=== PATIENT | male | born 1950 | race Caucasian/White ===

== ENCOUNTER 2024-08-25 21:54 | Inpatient (IN) | payer MEDICARE, OTHER ==
--- NOTE | 2024-08-25 22:09 | ED ---
Weakness HPI - General Stated complaint: Bradycardia Time Seen by Provider: 08/25/24 22:02 Source: RN notes reviewed, old records reviewed Mode of arrival: EMS Limitations: altered mental status, physical limitation - History of Present Illness Initial comments: This is a 74-year-old male to the ER for evaluation, patient had EMS called because he was not acting appropriately patient was found by EMS to be unresponsive which may be his baseline but is usually eating per staff at extended-care facility today patient did not eat any food and EMS found patient's heart rate to be in the 20s EMS transfer patient to the ER after giving atropine without help and heart rate they initially had normal blood pressure MD Complaint: generalized weakness, lack of energy -: unknown Location: generalized Severity: severe Severity scale (1-10): 10 Consistency: constant Improves with: none Worsens with: none Context: recent illness Associated Symptoms: confusion - Related Data Home Medications Medication Instructions Recorded Confirmed Acetaminophen [Tylenol] 325 mg PO Q4H PRN 03/19/14 08/26/24 Aspirin 81 mg PO DAILY 03/19/14 08/26/24 Chlorhexidine Gluconate [Peridex] 15 ml PO BID 03/19/14 08/26/24 Phenytoin Sodium Extended 100 mg PO TID 03/19/14 08/26/24 [Dilantin] Propranolol HCl [Propranolol HCl 60 mg PO DAILY 03/19/14 08/26/24 ER] Tamsulosin [Flomax] 0.4 mg PO DAILY 03/19/14 08/26/24 Divalproex ER [Depakote ER] 1,000 mg PO BID 08/26/24 08/26/24 Furosemide [Lasix] 20 mg PO DAILY 08/26/24 08/26/24 Levothyroxine Sodium [Synthroid] 25 mcg PO DAILY 08/26/24 08/26/24 Menthol-Zinc Oxide Oint 1 applic TOPICAL DAILY PRN 08/26/24 08/26/24 [Calmoseptine Ointment] Multivitamins, Thera [Multivitamin 1 tab PO DAILY 08/26/24 08/26/24 (formulary)] Potassium Chloride ER [K-Dur 10] 10 meq PO DAILY 08/26/24 08/26/24 guaiFENesin SYRUP 100MG/5ML 200 mg PO Q4H 08/26/24 08/26/24 [Robitussin] Allergies Allergy/AdvReac Type Severity Reaction Status Date / Time No Known Allergies Allergy Verified 08/26/24 12:16 Review of Systems ROS Statement: Those systems with pertinent positive or pertinent negative responses have been documented in the HPI. ROS Other: All systems not noted in ROS Statement are negative. 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 Absent: scleral icterus, conjunctival injection, periorbital swelling ENT exam: Present: normal exam, mucous membranes moist Neck exam: Present: normal inspection. Absent: tenderness, meningismus, lymphadenopathy Respiratory exam: Present: respiratory distress, decreased breath sounds, prolonged expiratory. Absent: wheezes, rales, rhonchi, stridor Cardiovascular Exam: Present: regular rate, bradycardia, normal heart sounds. Absent: systolic murmur, diastolic murmur, rubs, gallop, clicks GI/Abdominal exam: Present: soft, normal bowel sounds. Absent: distended, tenderness, guarding, rebound, rigid Extremities exam: Present: normal inspection, full ROM, normal capillary refill. Absent: tenderness, pedal edema, joint swelling, calf tenderness Back exam: Present: normal inspection Psychiatric exam: Present: normal affect, normal mood Skin exam: Present: warm, dry, intact, normal color. Absent: rash Course Vital Signs 08/25/24 08/25/24 08/26/24 22:14 23:39 00:00 Temperature 87.6 F L 85.8 F L 29.9 F L Pulse Rate 29 L 40 L 43 L Respiratory 15 20 20 Rate Blood Pressure 44/33 87/35 76/25 O2 Sat by Pulse 97 90 L 92 L Oximetry 08/26/24 00:19 Temperature 86.0 F L Pulse Rate 61 Respiratory 15 Rate Blood Pressure 80/25 O2 Sat by Pulse 92 L Oximetry - Reevaluation(s) Reevaluation #1: 08/25/24 22:08 medical records reviewed Reevaluation #2: 08/25/24 22:43 Blood pressure remains significant shocky here in the ER Patient altered mental status here in the ER Patient given central line dopamine and Levophed Patient remains bradycardic here in the ER Patient given dopamine and Levophed no response to atropine Patient's blood pressure remains low given steroid and thyroid medications known history of hypothyroid Reevaluation #3: 08/25/24 22:45 Patient informed of results questions answered Reevaluation #4: Was pt. sent in by a medical professional or institution (, [facility], [facility]TH WORK[facility], urgent care, hospital, or [facility]...) When possible be specific @ -no Did you speak to anyone other than the patient for history (EMS, parent, family, police, friend...)? What history was obtained from this source @ -no Did you review nursing and triage notes (agree or disagree)? Why? @ -agree Are old charts reviewed (outside hosp., previous admission, EMS record, old EKG, old radiological studies, urgent care reports/EKG's, [facility] records)? Report findings @ -yes Differential Diagnosis (chest pain, altered mental status, abdominal pain women, abdominal pain men, vaginal bleeding, weakness, fever, dyspnea, syncope, headache, dizziness, GI bleed, back pain, seizure, CVA, palpatations, mental health, musculoskeletal)? @ -prior EKG interpreted by me (3pts min.). @ -yes X-rays interpreted by me (1pt min.). @ -yes suspected acute infiltrate CT interpreted by me (1pt min.). @ - yes negative for acute disease U/S interpreted by me (1pt. min.). @ -no What testing was considered but not performed or refused? (CT, X-rays, U/S, labs)? Why? @ -none What meds were considered but not given or refused? Why? @ -none Did you discuss the management of the patient with other professionals (professionals i.e. , [facility], [facility] WORK[facility], lab, RT, psych nurse, social services technician, sugar plantation manager, te acher, risk officer, home health care case manager)? Give summary @ -no Was smoking cessation discussed for >3mins.? @ -no Was critical care preformed (if so, how long)? @ -yes65 Were there social determinants of health that impacted care today? How? (Homelessness, low income, unemployed, alcoholism, drug addiction, transportation, low edu. Level, literacy, decrease access to med. care, long term, rehab)? @ -none Was there de-escalation of care discussed even if they declined (Discuss DNR or withdrawal of care, Hospice)? DNR status @ -no What co-morbidities impacted this encounter? (DM, HTN, Smoking, COPD, CAD, Cancer, CVA, ARF, Chemo, Hep., AIDS, mental health diagnosis, sleep apnea, morbid obesity)? @ -none Was patient admitted / discharged? Hospital course, mention meds given and route, prescriptions, significant lab abnormalities, going to OR and other pertinent info. @ - 74 male to the ER for evaluation of altered mental status. Per the [facility] care facility patient was not responding or eating up to his normal standard today. Patient is a decreased mental status with mild retardation at baseline but usually does eat food especially in place in front of him, he did not do this throughout the day today. When EMS arrived they found patient to be with a significant low heart rate and he continues to be bradycardic here in the ER with low blood pressure Suspect sepsis, patient placed on IV antibiotics Central line multiple blood pressure medications Admitted Undiagnosed new problem with uncertain prognosis? @ -no Drug Therapy requiring intensive monitoring for toxicity (Heparin, Nitro, Insulin, Cardizem)? @ -no Were any procedures done? @ -no Diagnosis/symptom? @ -hypovolemic shock Multifactorial, suspect sepsis, hypovolemia Acute, or Chronic, or Acute on Chronic? @ -Acute Uncomplicated (without systemic symptoms) or Complicated (systemic symptoms)? @ -Complicated Side effects of treatment? @ -no Exacerbation, Progression, or Severe Exacerbation? @ -exacerbation Poses a threat to life or bodily function? How? (Chest pain, USA, MD, pneumonia, PE, COPD, DKA, ARF, appy, cholecystitis, CVA, Diverticulitis, Homicidal, Suicidal, threat to staff... and all critical care pts) @ -yes Extremes of age with significant illness 09/02/24 00:36 Reevaluation #5: Differential Altered Mental Status: Hypoglycemia, DKA, hypercapnia, ETOH, overdose, CO poisoning, trauma, myxedema coma, HTN encephalopathy, infection, encephalitis, psychosis, intercranial hemorrhage, hepatic encephalopathy, meningitis, CVA, this is not meant to be an all-inclusive list - Consultations Consultation #1: spoke w sound ok for admission Consultation #2: spoke w ICU ok for admission EKG Findings - EKG Comments: EKG Findings:: EKG is sinus bradycardia 27 OR 175 QRS 109 QTc 439 Procedures - Central Line Placement Right IJ Consent Obtained: verbal consent Patient Placed on Monitor/Pulse Ox: Yes MD Prep: mask Central Line Prep: Chlorhexidine scrub Local Anesthesia Used: Lidocaine 1% Ultrasound Used for Placement: Yes Bloods Obtained for Lab: Yes Central Line Position: good blood return, all ports aspirated, flushed, capped, sutured in place with 2-0 silk, sutured in place with 3-0 nylon Dressing Applied: Tegaderm Patient Tolerated Procedure: well - Sepsis Sepsis Focused Exam #1 Time Sepsis Criteria Met: 22:30 Sepsis Focused Exam Date: 08/26/24 Sepsis Focused Exam Time: 02:00 Sepsis Focused Exam Complete: Yes Vital Signs & RN Notes Reviewed: Yes Capillary Refill: < 2 Seconds: Fingers, Toes Peripheral Pulses: Normal: Radial (R), Radial (L), Posterior Tibialis (R), Posterior Tibialis (L), Dorsalis Pedis (R), Dorsalis Pedis (L) Skin Color: Cyanotic Respiratory Exam: wheezes, rhonchi Cardiovascular Exam: bradycardia Medical Decision Making - Medical Decision Making 74 male to the ER for evaluation of altered mental status. Per the [facility]care [facility] patient was not responding or eating up to his normal standard today. Patient is a decreased mental status with mild retardation at baseline but usually does eat food especially in place in front of him, he did not do this throughout the day today. When EMS arrived they found patient to be with a significant low heart rate and he continues to be bradycardic here in the ER with low blood pressure Suspect sepsis, patient placed on IV antibiotics Central line multiple blood pressure medications - Lab Data Result diagrams: 08/30/24 05:05 08/30/24 05:05 Lab Results 08/25/24 08/25/24 08/25/24 Range/Units 22:12 22:12 22:12 WBC 15.0 H (3.8-10.6) k/uL RBC 3.77 L (4.30-5.90) m/uL Hgb 11.2 L (13.0-17.5) gm/dL Hct 37.6 L (39.0-53.0) % MCV 99.6 (80.0-100.0) fL MCH 29.6 (25.0-35.0) pg MCHC 29.8 L (31.0-37.0) g/dL RDW 14.2 (11.5-15.5) % Plt Count 244 (150-450) k/uL MPV 10.9 Neutrophils % 79 % Lymphocytes % 11 % Monocytes % 7 % Eosinophils % 1 % Basophils % 0 % Neutrophils # 11.9 H (1.3-7.7) k/uL Lymphocytes # 1.7 (1.0-4.8) k/uL Monocytes # 1.0 (0-1.0) k/uL Eosinophils # 0.1 (0-0.7) k/uL Basophils # 0.0 (0-0.2) k/uL Hypochromasia Marked Macrocytosis Slight PT 12.7 H (10.0-12.5) sec INR 1.2 H (<1.2) APTT 27.3 (22.0-30.0) sec Sodium 151 H (137-145) mmol/L Potassium 3.9 (3.5-5.1) mmol/L Chloride 116 H (98-107) mmol/L Carbon Dioxide 29 (22-30) mmol/L Anion Gap 6 mmol/L BUN 48 H (9-20) mg/dL Creatinine 0.61 L (0.66-1.25) mg/dL Est GFR (CKD-EPI)AfAm >90 (>60 ml/min/1.73 sqM) Est GFR (CKD-EPI)NonAf >90 (>60 ml/min/1.73 sqM) Glucose 134 H (74-99) mg/dL Plasma Lactic Acid Eitan (0.7-2.0) mmol/L Calcium 8.4 (8.4-10.2) mg/dL Phosphorus 3.7 (2.5-4.5) mg/dL Magnesium 2.6 H (1.6-2.3) mg/dL Total Bilirubin 0.5 (0.2-1.3) mg/dL AST 57 (17-59) U/L ALT 30 (4-49) U/L Alkaline Phosphatase 191 H (38-126) U/L Ammonia (<30) umol/L Troponin I (0.000-0.034) ng/mL NT-Pro-B Natriuret Pep 305 pg/mL Total Protein 6.3 (6.3-8.2) g/dL Albumin 2.8 L (3.5-5.0) g/dL TSH 7.350 H (0.465-4.680) mIU/L Free T4 0.97 (0.78-2.19) ng/dL Salicylates <1.0 mg/dL Acetaminophen <10.0 ug/mL 08/25/24 08/25/24 Range/Units 22:12 22:12 WBC (3.8-10.6) k/uL RBC (4.30-5.90) m/uL Hgb (13.0-17.5) gm/dL Hct (39.0-53.0) % MCV (80.0-100.0) fL MCH (25.0-35.0) pg MCHC (31.0-37.0) g/dL RDW (11.5-15.5) % Plt Count (150-450) k/uL MPV Neutrophils % % Lymphocytes % % Monocytes % % Eosinophils % % Basophils % % Neutrophils # (1.3-7.7) k/uL Lymphocytes # (1.0-4.8) k/uL Monocytes # (0-1.0) k/uL Eosinophils # (0-0.7) k/uL Basophils # (0-0.2) k/uL Hypochromasia Macrocytosis PT (10.0-12.5) sec INR (<1.2) APTT (22.0-30.0) sec Sodium (137-145) mmol/L Potassium (3.5-5.1) mmol/L Chloride (98-107) mmol/L Carbon Dioxide (22-30) mmol/L Anion Gap mmol/L BUN (9-20) mg/dL Creatinine (0.66-1.25) mg/dL Est GFR (CKD-EPI)AfAm (>60 ml/min/1.73 sqM) Est GFR (CKD-EPI)NonAf (>60 ml/min/1.73 sqM) Glucose (74-99) mg/dL Plasma Lactic Acid Eitan 1.8 (0.7-2.0) mmol/L Calcium (8.4-10.2) mg/dL Phosphorus (2.5-4.5) mg/dL Magnesium (1.6-2.3) mg/dL Total Bilirubin (0.2-1.3) mg/dL AST (17-59) U/L ALT (4-49) U/L Alkaline Phosphatase (38-126) U/L Ammonia <9 (<30) umol/L Troponin I <0.012 (0.000-0.034) ng/mL NT-Pro-B Natriuret Pep pg/mL Total Protein (6.3-8.2) g/dL Albumin (3.5-5.0) g/dL TSH (0.465-4.680) mIU/L Free T4 (0.78-2.19) ng/dL Salicylates mg/dL Acetaminophen ug/mL - EKG Data -: EKG Interpreted by Me - Radiology Data Radiology results: report reviewed (CXR is possible infiltrate v atelectasis, CT brain negative for acute diseases), image reviewed Critical Care Time Critical Care Time: Yes Total Critical Care Time: 65 Disposition Clinical Impression: Bradycardia, Hypothermia, Altered mental status, Hypotension, Sepsis Disposition: ADMITTED IP TO THIS HOSP Is patient prescribed a controlled substance at d/c from ED?: No
[2024-08-25 22:30] LABS: Basophils % (A) 0 %; Eosinophils # (A) 0.1 k/uL (0-0.7); Eosinophils % (A) 1 %; HCT 37.6 % (39.0-53.0); HGB 11.2 gm/dL (13.0-17.5); Hypochromasia Marked; Lymphocytes # (A) 1.7 k/uL (1.0-4.8); Lymphocytes % (A) 11 %; MCH 29.6 pg (25.0-35.0); MCHC 29.8 g/dL (31.0-37.0); MCV 99.6 fL (80.0-100.0); Macrocytosis Slight; Mean Platelet Volume 10.9; Monocytes % (A) 7 %; Neutrophils # (A) 11.9 k/uL (1.3-7.7); Neutrophils % (A) 79 %; Platelet Count 244 k/uL (150-450); RBC 3.77 m/uL (4.30-5.90); RDW 14.2 % (11.5-15.5)
[2024-08-25] MEDS: HYDROCORTISONE SUCCINATE 100 MG/2 ML VIAL IV STA (22:34)
[2024-08-25] MEDS: MIDAZOLAM 2 MG/2 ML VIAL IV ONE (22:34)
[2024-08-25] MEDS: SODIUM CHLORIDE 0.9% 1,000 ML IV STA ×3 (22:34→23:20)
[2024-08-25] MEDS ORDERED: NALOXONE 0.4 MG/ML 1 ML VIAL IV PRN (22:37)
[2024-08-25 22:41] LABS: INR 1.2 (<1.2); Partial Thromboplastin Time 27.3 sec (22.0-30.0); Prothrombin Time 12.7 sec (10.0-12.5)
[2024-08-25] MEDS ORDERED: DOPamine DRIP 250 ML IV SCH (22:45)
[2024-08-25 22:52] LABS: Lactic Acid, Venous 1.8 mmol/L (0.7-2.0)
[2024-08-25 22:53] LABS: ALT 30 U/L (4-49); AST 57 U/L (17-59); Acetaminophen <10.0 ug/mL; African American GFR (CKD) >90 (>60 ml/min/1.73 sqM); Albumin 2.8 g/dL (3.5-5.0); Alkaline Phosphatase 191 U/L (38-126); Anion Gap 6 mmol/L; Blood Urea Nitrogen 48 mg/dL (9-20); Calcium 8.4 mg/dL (8.4-10.2); Carbon Dioxide 29 mmol/L (22-30); Chloride 116 mmol/L (98-107); Glucose 134 mg/dL (74-99); Magnesium 2.6 mg/dL (1.6-2.3); Non-African American GFR(CKD) >90 (>60 ml/min/1.73 sqM); Phosphorus 3.7 mg/dL (2.5-4.5); Potassium 3.9 mmol/L (3.5-5.1); Salicylate <1.0 mg/dL; Sodium 151 mmol/L (137-145); Total Bilirubin 0.5 mg/dL (0.2-1.3); Total Protein 6.3 g/dL (6.3-8.2)
[2024-08-25 23:02] LABS: NT-Pro-B-Type Natriuretic Pept 305 pg/mL
[2024-08-25] MEDS: PIPERACILLIN-TAZOBACTAM 3.375 GM in SODIUM CHLORIDE 0.9% 100 ML IVPB ONE (23:05)
[2024-08-25] MEDS: HYDROCORTISONE SUCCINATE 100 MG/2 ML VIAL IV SCH (23:06)
[2024-08-25] MEDS: DOPamine DRIP 800 MG in DEXTROSE/WATER 1 250ML.BAG IV ONE (23:13)
[2024-08-25] MEDS: LACTATED RINGERS 1,000 ML BAG IV STA (23:19)
[2024-08-25] MEDS: LEVOTHYROXINE IVP 100 MCG/5 ML VIAL IV ONE (23:20)
[2024-08-25] MEDS: NOREPINEPHRINE 32 MG in SODIUM CHLORIDE 0.9% 218 ML IV SCH (23:25)
[2024-08-25] MEDS: LEVOFLOXACIN 750MG-D5W PMX 750 MG in DEXTROSE/WATER 1 150ML.BAG IVPB STA (23:31)
[2024-08-25 23:33] LABS: VBG PH 7.37 (7.31-7.41)
[2024-08-25 23:34] LABS: Influenza A Not Detected (Not Detectd); Influenza B Not Detected (Not Detectd); RSV Not Detected (Not Detectd)
[2024-08-25 23:58] LABS: Appearance,Urine Clear (Clear); Bacteria,Urine Many /hpf; Bilirubin,Urine Negative (Negative); Blood,Urine Negative (Negative); Color,Urine Yellow; Glucose,Urine (UA) Negative (Negative); Hyaline Casts,Urine 13 /lpf (0-2); Ketones,Urine Negative (Negative); Leukocyte Esterase,Urine Large (Negative); Mucus,Urine Rare /hpf; Nitrite,Urine Negative (Negative); Protein,Urine Negative (Negative); RBC,Urine 2 /hpf (0-5); Specific Gravity,Urine 1.023 (1.001-1.035); Squamous Epithelial Cell,Urine <1 /hpf (0-4); Urobilinogen,Urine <2.0 mg/dL (<2.0); WBC,Urine 20 /hpf (0-5)
[2024-08-25] MEDS: LEVOFLOXACIN 750MG-D5W PMX 750 MG in DEXTROSE/WATER 1 150ML.BAG IVPB SCH (23:58)
--- NOTE | 2024-08-26 00:45 | XR ---
EXAM: XR Chest, 1 View CLINICAL HISTORY: ITS.REASON XR Reason: CVC TECHNIQUE: Frontal view of the chest. COMPARISON: 03/23/14 FINDINGS: Lungs: Reduced lung volumes with bronchovascular crowding. Right greater than left basilar opacities, atelectasis or pneumonia. Pleural space: No pleural effusion or pneumothorax. Heart: No cardiomegaly or pulmonary vascular congestion. Bones/joints: No acute fracture. No dislocation. Tubes, lines and devices: Right internal jugular central venous catheter with tip in the right atrium. IMPRESSION: 1. Reduced lung volumes with bronchovascular crowding. Right greater than left basilar opacities, atelectasis or pneumonia. 2. Right internal jugular central venous catheter with tip in the right atrium.
[2024-08-26 00:47] LABS: Glucose,Whole Blood 127 mg/dL (70-110)
[2024-08-26 00:49] LABS: T4, Free (Free Thyroxine) 0.97 ng/dL (0.78-2.19)
--- NOTE | 2024-08-26 00:49 | P.HPIM ---
History of Present Illness H&P Date: 08/25/24 History of present illness; Patient is a 74-year-old man with history of seizures, cognitive impairment, hypothyroidism who presents from extended-care facility for altered mental status. Per facility patient is a resident at [facility] for over 20 years, he is nonverbal and bedbound at baseline. Attempted to contact the facility with no answer. Today, patient was not eating since the morning, minimally responsive, which is different from his baseline. No known trauma. Spoke with the ER physician, patient admission was accepted by internal medicine service for treatment. REVIEW OF SYSTEMS: Unable to fully assess due to altered mental status PHYSICAL EXAMINATION: Vitals reviewed GENERAL: Ill appearing male laying in bed comfortably with no acute distress, appears at stated age EYES: Absence of pupillary light reflex with pupils 5 mm nicho, no scleral injection or icterus HENT: Normocephalic, healing bruise over right forehead, dry mucous membranes NECK: No tracheal deviation. CARDIOVASCULAR: Bradycardic. S1 and S2 present. No murmurs, rubs, or gallops. PULMONARY: Diminished breath sounds due to poor inspiratory effort. ABDOMEN: Soft, nontender, nondistended. No palpable organomegaly MUSCULOSKELETAL: No apparent joint swelling, diffusely contracted upper and lower extremities noted EXTREMITIES: No apparent cyanosis, clubbing. 2+ pedal edema. NEUROLOGICAL: Comatose with minimal grunting with vigorous tactile stimuli, spontaneous movements of nicho extremities SKIN: No apparent rashes. ER FINDINGS: Labs significant for WBC 15.0, hemoglobin 11.2, PT 12.7, INR 1.2, sodium 151, chloride 116, BUN 48, creatinine 0.61, glucose 134, magnesium 2.6, ALP 191, ammonia is WNL, troponin <0.012, proBNP 305, salicylate and acetaminophen is WNL, TSH 7.35, VBG is WNL, UA with findings of large LE, EKG independently interpreted showed sinus bradycardia, heart rate of 27, QT 605, QTc 439, no ST segment elevation or depression seen, no T-wave inversions seen. Chest x-ray done independently interpreted showed no acute cardiopulmonary process. Assessment and Plan: In summary, patient is a 74-year-old man with history of seizures, cognitive impairment, hypothyroidism who presents from extended-care facility for altered mental status. #Acute encephalopathy likely due to shock, unclear etiology, differential includes adrenal crisis vs myxedema coma vs septic shock (possibly from UTI) Temperature 87.6 degrees, WBC 15.0 - Acetaminophen and salicylate levels WNL - Lactate 1.8 is WNL, VBG WNL Lipase pending - B12, folate, thiamine pending - CT head pending UDS pending Given 2 L fluid resuscitation, continue IV NS 130 mL/h Continue Solu-Cortef 100 mg IV every 8 hours Continue Dopamine infusion and Levophed infusion w/ MAP > 65 Continue rewarming - Neurology consulted, consider EEG - Orchard Manager consult Cardiology consulted UA with large leukocyte esterase Blood and urine culture pending Alexandre catheter in place Begin IV ceftriaxone 1 g every 12 hours, Zosyn 3.375 g every 12 hours CBC in a.m #Hypothyroidism TSH 7.350, free T4 pending Given Synthroid 100 mcg IVP C/w Synthroid 130 mcg PO daily #Normocytic anemia B12, folate, thiamine as above Iron panel and ferritin ordered Monitor CBC #Hypernatremia with hyperchloremia Monitor CMP Chronic Medical Conditions #Epilepsywill resume home medication once confirmed DVT ppx: Subq Lovenox 40 meq daily Code status: Full code F: IV Normal saline 130 mL/hr E: Replete as needed N: N.p.o. Anticipated discharge place: Pending clinical course Anticipated discharge time: Pending clinical course Dictation was produced using [employer] dictation software. Please excuse any grammatical, word or spelling errors. 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 History of Any Multi-Drug Resistant Organisms: None Reported Past Surgical History: No Surgical Hx Reported Past Psychological History: No Psychological Hx Reported Past Alcohol Use History: None Reported Past Drug Use History: None Reported Medications and Allergies Home Medications Medication Instructions Recorded Confirmed Type ALPRAZolam [Xanax] 0.25 mg PO HS PRN 03/19/14 03/23/14 History Acetaminophen [Tylenol] 325 mg PO Q4H 03/19/14 03/23/14 History Aspirin 81 mg PO DAILY 03/19/14 03/23/14 History Azithromycin [Zithromax Z-pack (6 0 mg PO DIRECTED #6 tab 03/19/14 03/23/14 Rx tabs)] Chlorhexidine Gluconate [Peridex] 15 ml PO BID 03/19/14 03/23/14 History Cholecalciferol [Vitamin D3] 1,000 unit PO DAILY@1200 03/19/14 03/23/14 History Divalproex [Depakote] 250 mg PO TID 03/19/14 03/23/14 History Phenytoin Sodium Extended 100 mg PO TID 03/19/14 03/23/14 History [Dilantin] Propranolol HCl [Propranolol HCl 60 mg PO DAILY 03/19/14 03/23/14 History ER] Tamsulosin [Flomax] 0.4 mg PO DAILY 03/19/14 03/23/14 History Guaifenesin/Dextromethorphan [Kro 1 each PO Q4HR 5 Days tablet 03/23/14 Rx Mucus Relief Dm Tablet] Allergies Allergy/AdvReac Type Severity Reaction Status Date / Time No Known Allergies Allergy Verified 08/25/24 22:14 Physical Exam Vitals: Vital Signs Temp Pulse Resp BP Pulse Ox 08/25/24 22:14 87.6 F L 29 L 15 44/33 97 Intake and Output 08/25/24 08/25/24 08/26/24 14:59 22:59 06:59 Output Total 250 Balance -250 Output: Urine 250 Other: Voiding Method Diaper Indwelling Catheter Weight 81.647 kg Results CBC & Chem 7: 08/25/24 22:12 08/26/24 01:00 Labs: Abnormal Lab Results - Last 24 Hours (Table) 08/25/24 08/25/24 08/25/24 Range/Units 22:12 22:12 22:12 WBC 15.0 H (3.8-10.6) k/uL RBC 3.77 L (4.30-5.90) m/uL Hgb 11.2 L (13.0-17.5) gm/dL Hct 37.6 L (39.0-53.0) % MCHC 29.8 L (31.0-37.0) g/dL Neutrophils # 11.9 H (1.3-7.7) k/uL PT 12.7 H (10.0-12.5) sec INR 1.2 H (<1.2) Sodium 151 H (137-145) mmol/L Chloride 116 H (98-107) mmol/L BUN 48 H (9-20) mg/dL Creatinine 0.61 L (0.66-1.25) mg/dL Glucose 134 H (74-99) mg/dL Magnesium 2.6 H (1.6-2.3) mg/dL Alkaline Phosphatase 191 H (38-126) U/L Albumin 2.8 L (3.5-5.0) g/dL TSH 7.350 H (0.465-4.680) mIU/L
[2024-08-26 01:50] LABS: ALT 32 U/L (4-49); AST 68 U/L (17-59); African American GFR (CKD) >90 (>60 ml/min/1.73 sqM); Albumin 3.2 g/dL (3.5-5.0); Alkaline Phosphatase 211 U/L (38-126); Anion Gap 10 mmol/L; Blood Urea Nitrogen 46 mg/dL (9-20); Calcium 8.7 mg/dL (8.4-10.2); Carbon Dioxide 24 mmol/L (22-30); Chloride 117 mmol/L (98-107); Glucose 133 mg/dL (74-99); Lipase 1661 U/L (23-300); Non-African American GFR(CKD) >90 (>60 ml/min/1.73 sqM); Sodium 151 mmol/L (137-145); Total Bilirubin 0.5 mg/dL (0.2-1.3)
[2024-08-26] MEDS ORDERED: VANCOMYCIN IV PER PHARMACY 1 EACH MISC MISCELLANE PRN (01:51)
[2024-08-26 02:21] LABS: Amphetamine Screen,Urine Not Detected (NotDetected); Barbiturate Screen,Urine Detected (NotDetected); Benzodiazepines Screen,Urine Not Detected (NotDetected); Cocaine Screen,Urine Not Detected (NotDetected); Methadone Screen, Urine Not Detected (NotDetected); Opiate Screen,Urine Not Detected (NotDetected); Oxycodone Screen, Urine Not Detected (NotDetected); Phencyclidine Screen,Urine Not Detected (NotDetected); Tricyclic Antidepressant,Urine Not Detected (NotDetected); Urn Cannabinoid Scrn Not Detected (NotDetected)
[2024-08-26] MEDS: VANCOMYCIN 1,750 MG in SODIUM CHLORIDE 0.9% 500 ML 500 ML IVPB ONE (02:55)
[2024-08-26 04:22] LABS: Basophils % (A) 0 %; Eosinophils % (A) 0 %; HCT 41.5 % (39.0-53.0); HGB 12.1 gm/dL (13.0-17.5); Hypochromasia Marked; Lymphocytes # (A) 1.2 k/uL (1.0-4.8); Lymphocytes % (A) 8 %; MCH 29.1 pg (25.0-35.0); MCHC 29.2 g/dL (31.0-37.0); MCV 99.7 fL (80.0-100.0); Macrocytosis Slight; Mean Platelet Volume 11.3; Monocytes # (A) 0.6 k/uL (0-1.0); Monocytes % (A) 4 %; Neutrophils # (A) 12.2 k/uL (1.3-7.7); Neutrophils % (A) 86 %; Platelet Count 272 k/uL (150-450); RBC 4.16 m/uL (4.30-5.90); RDW 14.3 % (11.5-15.5); WBC 14.1 k/uL (3.8-10.6)
[2024-08-26 04:41] LABS: African American GFR (CKD) >90 (>60 ml/min/1.73 sqM); Anion Gap 10 mmol/L; Blood Urea Nitrogen 45 mg/dL (9-20); Calcium 8.3 mg/dL (8.4-10.2); Carbon Dioxide 25 mmol/L (22-30); Chloride 116 mmol/L (98-107); Glucose 153 mg/dL (74-99); Non-African American GFR(CKD) >90 (>60 ml/min/1.73 sqM); Sodium 151 mmol/L (137-145)
[2024-08-26 04:45] LABS: ABG Base Excess -0.4 mmol/L; ABG HCO3 25 mmol/L (21-25); ABG Oxygen Saturation 86.4 % (94-97); ABG PCO2 43 mmHg (35-45); ABG PH 7.37 (7.35-7.45); ABG TCO2 26 mmol/L (19-24)
[2024-08-26 04:48] LABS: ABG PO2 52 mmHg (83-108); Allen Test Performed? no
[2024-08-26] MEDS: LEVOTHYROXINE 125 MCG TAB PO SCH (05:34)
[2024-08-26] MEDS: PIPERACILLIN-TAZOBACTAM 3.375 GM in SODIUM CHLORIDE 0.9% 100 ML IVPB SCH (06:22)
--- NOTE | 2024-08-26 07:24 | XR ---
EXAMINATION TYPE: XR chest 1V DATE OF EXAM: 08/26/2024 3:35 AM COMPARISON: Chest radiographs from 08/25/2024 TECHNIQUE: XR chest 1V Portable AP radiograph of the chest. CLINICAL INDICATION:Male, 74 years old with history of assess lung status; FINDINGS: Patient is rotated which limits evaluation. The patient's head obscures the left lung apex. Lungs/Pleura: No pleural effusion. No gross evidence of pneumothorax. Left perihilar bronchovascular crowding. Bibasilar airspace opacities. Heart/mediastinum: Cardiomediastinal silhouette is unremarkable. Musculoskeletal: No acute osseous pathology. Dextrocurvature of the visualized thoracic spine. Findings/tubes: Stable position of right IJ central venous catheter with distal tip in the right atri um. IMPRESSION: 1. Similar reduced lung lines and bronchovascular crowding and bibasilar opacities representing atel ectasis versus pneumonia. 2. Stable right IJ central venous catheter. [facility], , 08/26/2024 7:22 AM
[2024-08-26] MEDS: ENOXAPARIN 40 MG/0.4 ML SYRINGE SQ SCH (08:18)
[2024-08-26] MEDS: DEXTROSE 5% IN WATER 1,000 ML IV SCH (08:52)
--- NOTE | 2024-08-26 10:26 | CT ---
EXAM: CT Head Without Intravenous Contrast CLINICAL HISTORY: ams TECHNIQUE: Axial computed tomography images of the head/brain without intravenous contrast. CTDI is 49.2 mGy and DLP is 1286.4 mGy-cm. This CT exam was performed using one or more of the following dose reduction techniques: automated exposure control, adjustment of the mA and/or kV according to patient size, and/or use of iterative reconstruction technique. COMPARISON: No relevant prior studies available. 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 Right greater than left cerebellar atrophy. Ventricles: Ex vacuo dilatation of the left lateral ventricle and dilated third ventricle. Bones/joints: Unremarkable. No acute fracture. Soft tissues: Unremarkable. Sinuses: Unremarkable as visualized. No acute sinusitis. Mastoid air cells: Unremarkable as visualized. No mastoid effusion. IMPRESSION: 1. No acute intracranial hemorrhage or herniation. 2. 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 3. Diffuse cerebellar atrophy, right great than left.
--- NOTE | 2024-08-26 10:40 | US ---
EXAMINATION TYPE: US kidneys/renal and bladder DATE OF EXAM: 08/26/2024 COMPARISON: NONE CLINICAL INDICATION: Male, 74 years old with history of Candis; CANDIS TECHNIQUE: Grayscale imaging of the bilateral kidneys and urinary bladder: FINDINGS: EXAM MEASUREMENTS: Right Kidney: 10.4 x 5.1 x 4.2 cm Left Kidney: 9.9 x 4.5 x 3.3 cm Right Kidney: No hydronephrosis or masses seen Left Kidney: No hydronephrosis or masses seen Bladder: Cathter in. There is no evidence for hydronephrosis at this point in time. No nephrolithiasis is seen. No connor s are identified. Cortical medullary differentiation is maintained bilaterally. The urinary bladder i s decompressed from Alexandre catheter which limits evaluation. IMPRESSION: No hydronephrosis or nephrolithiasis. [facility], , 08/26/2024 10:37 AM
[2024-08-26] MEDS ORDERED: VANCOMYCIN 1,500 MG in SODIUM CHLORIDE 0.9% 500 ML 500 ML IVPB SCH (11:00)
--- NOTE | 2024-08-26 11:19 | P.PN ---
Subjective Progress Note Date: 08/26/24 Subjective: Patient seen and examined at bedside. No acute events overnight. Patient supposedly not on oxygen at facility, and neither does he have Alexandre catheter. Nonverbal at baseline. Pertinent positives and negatives as discussed above, a complete review of systems was performed and all other systems are negative. Vitals Signs Reviewed. General: Nontoxic, in mild acute distress distress, appears at stated age Derm: Warm, dry Head: Atraumatic, normocephalic, symmetric Eyes: EOMI, no lid lag, anicteric sclera Mouth: No lip lesion, mucus membranes moist Cardiovascular: S1S2 reg, no murmur Lungs: Bilateral rhonchi, no accessory muscle use, supplemental oxygen Abdominal: Soft, nontender to palpation, no guarding, no appreciable organomegaly Ext: Upper and lower extremity contractures, 2+ bilateral lower extremity edema Neuro: Nonverbal, spontaneously opening eyes Psych: Alert, oriented, appropriate affect Data Reviewed Today: Pertinent Labs: WBC 14.1, hemoglobin 12.1, pH 7.37, pCO2 43, sodium 151, creatinine 0.57 Imaging: Chest x-ray independently interpreted from this morning, shows poor inspiratory effort, otherwise unchanged from yesterday. The ultrasound did not show hydronephrosis or nephrolithiasis. Head CT did not show any acute process, does have extensive encephalomalacia throughout the left cerebral hemisphere, diffuse cerebral atrophy. Assessment and Plan: Active: Unspecified shock, likely septic Bacterial pneumonia Acute hypoxic respiratory failure Acute metabolic encephalopathy Hypothermia Leukocytosis Hypernatremia - ICU consulted, appreciate recommendations - patient being warmed - on D5W 100 cc/hr - repeat bmp this afternoon - wean pressors, currently on dopamine and levophed - concern for possible adrenal crisis as well, on solu-cortef 100 IV q8h, will changed to q12hr - Cultures pending, procal pending - switch zosyn to cefepime and flagyl IV - continue vanc IV, monitor for renal toxicity - MRSA nares ordered - echo pending Epilepsy - confirm home meds with pharmacy, currently getting hold of facility - change oral meds to IV - dilantin and depakote levels ordered - per report, mental status at baseline other than lethargy -Neurology consulted, pending recommendations Bradycardia, resolved -Echo pending, cardiology also consulted Chronic: Cognitive impairment Hypothyroidism BPH DVT ppx: Lovenox Code status: No code Anticipated discharge place: Pending clinical course Anticipated discharge time: Pending clinical course Objective - Vital Signs Vital signs: Vital Signs Temp 97.3 F L 08/26/24 10:00 Pulse 71 08/26/24 10:10 Resp 16 08/26/24 10:10 BP 91/74 08/26/24 10:10 Pulse Ox 91 L 08/26/24 10:10 FiO2 100 08/26/24 02:00 Intake & Output 08/25/24 08/26/24 08/26/24 18:59 06:59 18:59 Intake Total 705.390 761.114 Output Total 490 90 Balance 215.390 671.114 Weight 71.6 kg 71.6 kg Intake: IV 650 269 .9NS Pressure Bag 9 Sodium Chloride 0.9% 1, 650 260 000 ml @ 130 mls/hr IV . Q7H42M [facility] Rx#:[id number] Intake, IV Titration 55.390 492.114 Amount DOPamine DRIP 800 mg In 30.873 175.568 Dextrose/Water 1 250ml. bag @ 5 MCG/KG/MIN 7.654 mls/hr IV .Q24H [facility] Rx#: [id number] Dextrose 5% in Water 1, 200 000 ml @ 100 mls/hr IV . Q10H [facility] Rx#:[id number] Norepinephrine 32 mg In 24.517 16.546 Sodium Chloride 0.9% 218 ml @ 0.05 MCG/KG/MIN 1. 914 mls/hr IV .Q24H [facility] Rx#:[id number] Piperacillin-Tazobactam 3 100 .375 gm In Sodium Chloride 0.9% 100 ml @ 25 mls/hr IVPB Q8H [facility] Rx#: [id number] Output: Urine 490 90 Other: Voiding Method Indwelling Catheter ABP, PAP, CO, CI - Last Documented Arterial Blood Pressure 81/46 - Labs CBC & Chem 7: 08/26/24 04:08 08/26/24 04:08 Labs: Abnormal Lab Results - Last 24 Hours (Table) 08/25/24 08/25/24 08/25/24 Range/Units 22:12 22:12 22:12 WBC 15.0 H (3.8-10.6) k/uL RBC 3.77 L (4.30-5.90) m/uL Hgb 11.2 L (13.0-17.5) gm/dL Hct 37.6 L (39.0-53.0) % MCHC 29.8 L (31.0-37.0) g/dL Neutrophils # 11.9 H (1.3-7.7) k/uL PT 12.7 H (10.0-12.5) sec INR 1.2 H (<1.2) ABG pO2 (83-108) mmHg ABG Total CO2 (19-24) mmol/L ABG O2 Saturation (94-97) % Hemoglobin (13.0-17.5) gm/dL Sodium 151 H (137-145) mmol/L Chloride 116 H (98-107) mmol/L BUN 48 H (9-20) mg/dL Creatinine 0.61 L (0.66-1.25) mg/dL Glucose 134 H (74-99) mg/dL POC Glucose (mg/dL) (70-110) mg/dL Plasma Lactic Acid Eitan (0.7-2.0) mmol/L Calcium (8.4-10.2) mg/dL Magnesium 2.6 H (1.6-2.3) mg/dL AST (17-59) U/L Alkaline Phosphatase 191 H (38-126) U/L Albumin 2.8 L (3.5-5.0) g/dL Lipase (23-300) U/L TSH 7.350 H (0.465-4.680) mIU/L Ur Leukocyte Esterase (Negative) Urine WBC (0-5) /hpf Urine WBC Clumps (None) /hpf Urine Bacteria (None) /hpf Hyaline Casts (0-2) /lpf Urine Mucus (None) /hpf Ur Barbiturates Screen (NotDetected) 08/25/24 08/26/24 08/26/24 Range/Units 23:06 00:35 00:46 WBC (3.8-10.6) k/uL RBC (4.30-5.90) m/uL Hgb (13.0-17.5) gm/dL Hct (39.0-53.0) % MCHC (31.0-37.0) g/dL Neutrophils # (1.3-7.7) k/uL PT (10.0-12.5) sec INR (<1.2) ABG pO2 (83-108) mmHg ABG Total CO2 (19-24) mmol/L ABG O2 Saturation (94-97) % Hemoglobin (13.0-17.5) gm/dL Sodium (137-145) mmol/L Chloride (98-107) mmol/L BUN (9-20) mg/dL Creatinine (0.66-1.25) mg/dL Glucose (74-99) mg/dL POC Glucose (mg/dL) 127 H (70-110) mg/dL Plasma Lactic Acid Eitan 2.1 H* (0.7-2.0) mmol/L Calcium (8.4-10.2) mg/dL Magnesium (1.6-2.3) mg/dL AST (17-59) U/L Alkaline Phosphatase (38-126) U/L Albumin (3.5-5.0) g/dL Lipase (23-300) U/L TSH (0.465-4.680) mIU/L Ur Leukocyte Esterase Large H (Negative) Urine WBC 20 H (0-5) /hpf Urine WBC Clumps Rare H (None) /hpf Urine Bacteria Many H (None) /hpf Hyaline Casts 13 H (0-2) /lpf Urine Mucus Rare H (None) /hpf Ur Barbiturates Screen (NotDetected) 08/26/24 08/26/24 08/26/24 Range/Units 01:00 01:24 04:08 WBC 14.1 H (3.8-10.6) k/uL RBC 4.16 L (4.30-5.90) m/uL Hgb 12.1 L (13.0-17.5) gm/dL Hct (39.0-53.0) % MCHC 29.2 L (31.0-37.0) g/dL Neutrophils # 12.2 H (1.3-7.7) k/uL PT (10.0-12.5) sec INR (<1.2) ABG pO2 (83-108) mmHg ABG Total CO2 (19-24) mmol/L ABG O2 Saturation (94-97) % Hemoglobin (13.0-17.5) gm/dL Sodium 151 H (137-145) mmol/L Chloride 117 H (98-107) mmol/L BUN 46 H (9-20) mg/dL Creatinine 0.55 L (0.66-1.25) mg/dL Glucose 133 H (74-99) mg/dL POC Glucose (mg/dL) (70-110) mg/dL Plasma Lactic Acid Eitan (0.7-2.0) mmol/L Calcium (8.4-10.2) mg/dL Magnesium (1.6-2.3) mg/dL AST 68 H (17-59) U/L Alkaline Phosphatase 211 H (38-126) U/L Albumin 3.2 L (3.5-5.0) g/dL Lipase 1661 H (23-300) U/L TSH (0.465-4.680) mIU/L Ur Leukocyte Esterase (Negative) Urine WBC (0-5) /hpf Urine WBC Clumps (None) /hpf Urine Bacteria (None) /hpf Hyaline Casts (0-2) /lpf Urine Mucus (None) /hpf Ur Barbiturates Screen Detected H (NotDetected) 08/26/24 08/26/24 Range/Units 04:08 04:40 WBC (3.8-10.6) k/uL RBC (4.30-5.90) m/uL Hgb (13.0-17.5) gm/dL Hct (39.0-53.0) % MCHC (31.0-37.0) g/dL Neutrophils # (1.3-7.7) k/uL PT (10.0-12.5) sec INR (<1.2) ABG pO2 52 L* (83-108) mmHg ABG Total CO2 26 H (19-24) mmol/L ABG O2 Saturation 86.4 L (94-97) % Hemoglobin 12.4 L (13.0-17.5) gm/dL Sodium 151 H (137-145) mmol/L Chloride 116 H (98-107) mmol/L BUN 45 H (9-20) mg/dL Creatinine 0.57 L (0.66-1.25) mg/dL Glucose 153 H (74-99) mg/dL POC Glucose (mg/dL) (70-110) mg/dL Plasma Lactic Acid Eitan (0.7-2.0) mmol/L Calcium 8.3 L (8.4-10.2) mg/dL Magnesium (1.6-2.3) mg/dL AST (17-59) U/L Alkaline Phosphatase (38-126) U/L Albumin (3.5-5.0) g/dL Lipase (23-300) U/L TSH (0.465-4.680) mIU/L Ur Leukocyte Esterase (Negative) Urine WBC (0-5) /hpf Urine WBC Clumps (None) /hpf Urine Bacteria (None) /hpf Hyaline Casts (0-2) /lpf Urine Mucus (None) /hpf Ur Barbiturates Screen (NotDetected)
[2024-08-26 11:32] LABS: Glucose,Whole Blood 130 mg/dL (70-110)
[2024-08-26] MEDS: VANCOMYCIN 1,250 MG in SODIUM CHLORIDE 0.9% 250 ML IVPB SCH (11:38)
[2024-08-26 11:59] LABS: Phenytoin (Dilantin) 14.7 ug/mL
[2024-08-26 12:00] LABS: Valproic Acid (Depakene) 40.6 ug/mL
--- NOTE | 2024-08-26 12:41 | P.CNPUL ---
History of Present Illness Consult date: 08/26/24 Requesting physician: Alireza Segal Reason for consult: other (ICU management) Chief complaint: Altered mental status History of present illness: This is a 74-year-old white male with history of cognitive impairment, mentally challenged, known history of multiple medical problems including seizure disorder, patient is bedbound, has flexion contractures, [facility]. Presented to the ER last night with altered mental status as documented by the ER physician and as noted by the extended-care facility staff. Apparently has not been eating, and upon his initial evaluation in the ER, patient was noted to be hypothermic with a temp of 84. Patient was hypotensive, bradycardic, his cardiac rate was in the 20s. Patient was not responsive to any stimuli, but according to the ER physician he was able to protect his airways, and did not seem to be in respiratory distress. Did not require intubation or mechanical ventilation. However patient required placement on dopamine for his bradycardia, and he was also placed on norepinephrine at the same time. Transferred to the ICU on dopamine at 12 mcg/kg/min norepinephrine at 0.08 mcg/kg/min patient received IV fluids and he had external warming performed, and I saw him today his temperature is 95. P atient remains on a nonrebreather mask/15 L flow, his ABG today showed a pO2 of 52 pCO2 43 pH of 7.37. Again his temp is up to 95. Sodium was noted to be elevated and he is now on D5W at 100 cc/h. The patient himself is nonverbal, and does not follow any instructions. His labs today show WBC count is 14.1 hemoglobin 12.1, sodium was noted to be 151 BUN is 45 creatinine 0.57 his IV fluid was changed from 0.9 normal saline to D5W. Liver enzymes were noted to be a bit elevated lipase was 1661. And alkaline phosphatase was 211, drug screen was positive only for barbiturates. Otherwise negative drug screen. Phenytoin level was therapeutic 14.7 valproic acid was subtherapeutic at 40.6. Review of Systems ROS unobtainable: due to mental status 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, Rt ankle fracture 2 years ago, nonverbal, seizure disorder History of Any Multi-Drug Resistant Organisms: None Reported Past Surgical History: No Surgical Hx Reported Past Psychological History: No Psychological Hx Reported Smoking Status: Never smoker Past Alcohol Use History: None Reported Past Drug Use History: None Reported Medications and Allergies Home Medications Medication Instructions Recorded Confirmed Type ALPRAZolam [Xanax] 0.25 mg PO HS PRN 03/19/14 03/23/14 History Acetaminophen [Tylenol] 325 mg PO Q4H 03/19/14 03/23/14 History Aspirin 81 mg PO DAILY 03/19/14 03/23/14 History Azithromycin [Zithromax Z-pack (6 0 mg PO DIRECTED #6 tab 03/19/14 03/23/14 Rx tabs)] Chlorhexidine Gluconate [Peridex] 15 ml PO BID 03/19/14 03/23/14 History Cholecalciferol [Vitamin D3] 1,000 unit PO DAILY@1200 03/19/14 03/23/14 History Divalproex [Depakote] 250 mg PO TID 03/19/14 03/23/14 History Phenytoin Sodium Extended 100 mg PO TID 03/19/14 03/23/14 History [Dilantin] Propranolol HCl [Propranolol HCl 60 mg PO DAILY 03/19/14 03/23/14 History ER] Tamsulosin [Flomax] 0.4 mg PO DAILY 03/19/14 03/23/14 History Guaifenesin/Dextromethorphan [Kro 1 each PO Q4HR 5 Days tablet 03/23/14 Rx Mucus Relief Dm Tablet] Allergies Allergy/AdvReac Type Severity Reaction Status Date / Time No Known Allergies Allergy Verified 08/26/24 12:16 Physical Exam Vitals: Vital Signs Temp Pulse Pulse Resp BP Pulse Ox FiO2 08/26/24 11:20 67 9 L 62/45 97 08/26/24 11:10 66 17 114/94 97 08/26/24 11:00 65 17 98 08/26/24 10:50 67 10 L 91/81 98 08/26/24 10:40 68 17 83/62 98 08/26/24 10:30 68 11 L 96 08/26/24 10:20 68 12 105/81 92 L 08/26/24 10:10 71 16 91/74 91 L 08/26/24 10:00 97.3 F L 68 17 98/33 91 L 08/26/24 09:50 70 20 98/33 96 08/26/24 09:40 66 20 95/66 95 08/26/24 09:30 69 19 99/84 92 L 08/26/24 09:20 65 18 99/84 96 08/26/24 09:10 65 18 116/89 93 L 08/26/24 09:00 96.8 F L 66 22 95 08/26/24 08:50 66 20 96 08/26/24 08:40 69 19 129/98 91 L 08/26/24 08:30 67 13 89 L 08/26/24 08:20 68 18 122/109 90 L 08/26/24 08:10 66 15 105/91 95 08/26/24 08:00 67 15 94/75 08/26/24 07:50 65 15 94/75 92 L 08/26/24 07:40 65 23 115/73 94 L 08/26/24 07:30 95.2 F L 65 15 94/58 95 08/26/24 07:00 60 16 95/79 95 08/26/24 06:50 61 16 95/79 94 L 08/26/24 06:40 58 L 16 90/76 92 L 08/26/24 06:30 59 L 16 140/80 94 L 08/26/24 06:20 52 L 15 140/80 94 L 08/26/24 06:10 61 9 L 86/47 08/26/24 06:00 60 11 L 68/53 08/26/24 05:50 60 14 68/53 08/26/24 05:40 60 16 102/54 08/26/24 05:30 62 18 108/45 08/26/24 05:10 84/72 08/26/24 05:00 80/38 08/26/24 04:50 61 21 80/38 08/26/24 04:40 61 17 121/44 08/26/24 04:30 61 21 88/46 08/26/24 04:20 61 14 88/46 08/26/24 04:10 61 19 100/67 08/26/24 04:00 90.3 F L 60 61 19 117/53 08/26/24 03:50 59 L 16 117/53 08/26/24 03:40 58 L 15 99/71 08/26/24 03:30 58 L 17 102/89 08/26/24 03:20 58 L 16 102/89 08/26/24 03:10 57 L 15 97/68 85 L 08/26/24 03:00 56 L 11 L 120/103 91 L 08/26/24 02:50 56 L 16 120/103 92 L 08/26/24 02:40 56 L 11 L 116/102 91 L 08/26/24 02:30 55 L 13 96/35 90 L 08/26/24 02:20 55 L 15 77 L 08/26/24 02:10 55 L 11 L 58/38 86 L 08/26/24 02:00 54 L 10 L 94/50 85 L 100 08/26/24 01:50 54 L 8 L 110/73 87 L 08/26/24 01:40 53 L 12 109/55 92 L 08/26/24 01:30 53 L 10 L 107/45 93 L 08/26/24 01:20 52 L 8 L 100/63 94 L 08/26/24 01:10 51 L 7 L 109/57 89 L 08/26/24 01:00 86.5 F L 49 L 51 L 7 L 80/53 93 L 08/26/24 00:50 50 L 5 L 87/64 95 08/26/24 00:46 27 L 08/26/24 00:42 80 L 08/26/24 00:19 86.0 F L 61 15 80/25 92 L 08/26/24 00:00 29.9 F L 43 L 20 76/25 92 L 08/25/24 23:39 85.8 F L 40 L 20 87/35 90 L 08/25/24 22:14 87.6 F L 29 L 15 44/33 97 Intake and Output 08/25/24 08/26/24 08/26/24 22:59 06:59 14:59 Intake Total 705.390 764.845 Output Total 490 90 Balance 215.390 674.845 Intake: IV 650 269 .9NS Pressure Bag 9 Sodium Chloride 0.9% 1, 650 260 000 ml @ 130 mls/hr IV . Q7H42M [facility] Rx#:[id number] Intake, IV Titration 55.390 495.845 Amount DOPamine DRIP 800 mg In 30.873 178.757 Dextrose/Water 1 250ml. bag @ 5 MCG/KG/MIN 7.654 mls/hr IV .Q24H [facility] Rx#: [id number] Dextrose 5% in Water 1, 200 000 ml @ 100 mls/hr IV . Q10H [facility] Rx#:[id number] Norepinephrine 32 mg In 24.517 17.088 Sodium Chloride 0.9% 218 ml @ 0.05 MCG/KG/MIN 1. 914 mls/hr IV .Q24H [facility] Rx#:[id number] Piperacillin-Tazobactam 3 100 .375 gm In Sodium Chloride 0.9% 100 ml @ 25 mls/hr IVPB Q8H [facility] Rx#: [id number] Output: Urine 490 90 Other: Voiding Method Indwelling Catheter Weight 81.647 kg 71.6 kg 71.6 kg ABP, PAP, CO, CI - Last 8 Hours Arterial Blood Pressure 90/48 Arterial Blood Pressure 103/52 Arterial Blood Pressure 97/49 Arterial Blood Pressure 70/38 Arterial Blood Pressure 93/50 Arterial Blood Pressure 79/45 Arterial Blood Pressure 81/46 Arterial Blood Pressure 94/48 Arterial Blood Pressure 105/52 Arterial Blood Pressure 99/48 Arterial Blood Pressure 96/51 Arterial Blood Pressure 109/53 Arterial Blood Pressure 108/55 Arterial Blood Pressure 110/56 Arterial Blood Pressure 104/54 Arterial Blood Pressure 105/54 Arterial Blood Pressure 118/59 Arterial Blood Pressure 121/59 Arterial Blood Pressure 128/63 Arterial Blood Pressure 106/57 Arterial Blood Pressure 118/62 Arterial Blood Pressure 110/60 Arterial Blood Pressure 119/64 Arterial Blood Pressure 122/61 Arterial Blood Pressure 118/60 Arterial Blood Pressure 124/61 Arterial Blood Pressure 135/64 Arterial Blood Pressure 147/65 Arterial Blood Pressure 108/59 Arterial Blood Pressure 115/60 Arterial Blood Pressure 118/60 Arterial Blood Pressure 115/62 Arterial Blood Pressure 112/62 Arterial Blood Pressure 115/64 Arterial Blood Pressure 118/64 GENERAL: 74-year-old white male looks chronically ill, not in respiratory distress. EYES: PERRLA, EOMI, nonicteric, no neck masses, no JVD right IJ central line is noted. HENT: Atraumatic, normocephalic NECK: No neck masses no JVD no stridor CARDIOVASCULAR: Distant S1-S2, no S3 gallop, no murmur PULMONARY: Symmetrical chest expansion diminished breath sounds at the bases no rhonchi no wheezes ABDOMEN: Soft nontender no MAG no rebound no guarding MUSCULOSKELETAL: Diffusely contracted upper and lower extremities, flexion contractures noted. EXTREMITIES: Contracted, positive clubbing, 1+ edema. NEUROLOGICAL: Does not follow any instructions, difficult to assess. SKIN: No apparent rashes. Results - Laboratory Findings CBC and BMP: 08/26/24 04:08 08/26/24 04:08 ABG ABG pH 7.37 (7.35-7.45) 08/26/24 04:40 ABG pCO2 43 mmHg (35-45) 08/26/24 04:40 ABG pO2 52 mmHg (83-108) L* 08/26/24 04:40 ABG O2 Saturation 86.4 % (94-97) L 08/26/24 04:40 PT/INR, D-dimer PT 12.7 sec (10.0-12.5) H 08/25/24 22:12 INR 1.2 (<1.2) H 08/25/24 22:12 Abnormal lab findings: Abnormal Labs 08/25/24 08/25/24 08/25/24 22:12 22:12 22:12 WBC 15.0 H RBC 3.77 L Hgb 11.2 L Hct 37.6 L MCHC 29.8 L Neutrophils # 11.9 H PT 12.7 H INR 1.2 H ABG pO2 ABG Total CO2 ABG O2 Saturation Hemoglobin Sodium 151 H Chloride 116 H BUN 48 H Creatinine 0.61 L Glucose 134 H POC Glucose (mg/dL) Plasma Lactic Acid Eitan Calcium Magnesium 2.6 H AST Alkaline Phosphatase 191 H Albumin 2.8 L Lipase TSH 7.350 H Ur Leukocyte Esterase Urine WBC Urine WBC Clumps Urine Bacteria Hyaline Casts Urine Mucus Ur Barbiturates Screen 08/25/24 08/26/24 08/26/24 23:06 00:35 00:46 WBC RBC Hgb Hct MCHC Neutrophils # PT INR ABG pO2 ABG Total CO2 ABG O2 Saturation Hemoglobin Sodium Chloride BUN Creatinine Glucose POC Glucose (mg/dL) 127 H Plasma Lactic Acid Eitan 2.1 H* Calcium Magnesium AST Alkaline Phosphatase Albumin Lipase TSH Ur Leukocyte Esterase Large H Urine WBC 20 H Urine WBC Clumps Rare H Urine Bacteria Many H Hyaline Casts 13 H Urine Mucus Rare H Ur Barbiturates Screen 08/26/24 08/26/24 08/26/24 01:00 01:24 04:08 WBC 14.1 H RBC 4.16 L Hgb 12.1 L Hct MCHC 29.2 L Neutrophils # 12.2 H PT INR ABG pO2 ABG Total CO2 ABG O2 Saturation Hemoglobin Sodium 151 H Chloride 117 H BUN 46 H Creatinine 0.55 L Glucose 133 H POC Glucose (mg/dL) Plasma Lactic Acid Eitan Calcium Magnesium AST 68 H Alkaline Phosphatase 211 H Albumin 3.2 L Lipase 1661 H TSH Ur Leukocyte Esterase Urine WBC Urine WBC Clumps Urine Bacteria Hyaline Casts Urine Mucus Ur Barbiturates Screen Detected H 08/26/24 08/26/24 08/26/24 04:08 04:40 11:21 WBC RBC Hgb Hct MCHC Neutrophils # PT INR ABG pO2 52 L* ABG Total CO2 26 H ABG O2 Saturation 86.4 L Hemoglobin 12.4 L Sodium 151 H Chloride 116 H BUN 45 H Creatinine 0.57 L Glucose 153 H POC Glucose (mg/dL) 130 H Plasma Lactic Acid Eitan Calcium 8.3 L Magnesium AST Alkaline Phosphatase Albumin Lipase TSH Ur Leukocyte Esterase Urine WBC Urine WBC Clumps Urine Bacteria Hyaline Casts Urine Mucus Ur Barbiturates Screen - Diagnostic Findings Chest x-ray: image reviewed (Bibasilar atelectasis and or infiltrate at the bases. Highly suspicious for pneumonia. Possibly aspiration.) Additional studies: CT brain showed no acute intracranial hemorrhage or herniation extensive encephalomalacia noted throughout the left cerebral hemisphere and diffuse cerebral atrophy right greater than left. Ultrasound of gallbladder showed no hydronephrosis or nephrolithiasis. Assessment and Plan Assessment: Impression: Acute hypothermia, patient presented with a core temp of 84 F. Hypothyroidism, patient received IV Synthroid in the ER, and he will be resumed on his oral Synthroid. Hypovolemic hypernatremia, patient to receive IV fluid mostly D5W to correct his high sodium, patient obviously has free water deficit. History of seizure disorder, resume his home meds Acute metabolic encephalopathy secondary to hypothermia History of cognitive impairment Acute hypoxic respiratory failure secondary to acute aspiration pneumonia patient is requiring 50 L flow at this point. Recommendation: Continue warm blankets Continue IV fluids in the form of D5W Continue antibiotics empirically and check cultures including blood cultures urine cultures, and sputum cultures possible GI and DVT prophylaxis Continue dopamine and norepinephrine for now, Continue Solu-Cortef patient is receiving 100 mg IV push every 8 hours Titrate norepinephrine to mean arterial pressure above 65 Neurology to see on consultation regarding his seizure issues and adjustment of his medications Will continue to follow Patient is critically ill, CODE STATUS is no code. With instructions. Time with Patient: Greater than 30
--- NOTE | 2024-08-26 13:00 | XR ---
EXAMINATION TYPE: XR chest 1V portable DATE OF EXAM: 08/26/2024 12:52 PM COMPARISON: Chest radiographs from 09-18 TECHNIQUE: XR chest 1V portable Portable AP radiograph of the chest. CLINICAL INDICATION:Male, 74 years old with history of ngt placement; FINDINGS: Patient is rotated which limits evaluation. Lungs/Pleura: No pleural effusion or pneumothorax. Bibasilar patchy airspace opacities redemonstrated with left greater than right. Pulmonary vascularity: Unremarkable. Heart/mediastinum: Cardiomediastinal silhouette is unremarkable. Musculoskeletal: No acute osseous pathology. Other findings: Distended gas-filled colon. Lines/Tubes: Nasogastric tube with its distal tip and side-port projecting under the diaphragm. Right IJ central venous catheter distal tip terminating in the right atrium. IMPRESSION: 1. NG tube in appropriate position. 2. Dilated gas-filled colon concerning for ileus versus obstruction. 3. Similar bibasilar opacities which may represent atelectasis versus infiltrates. [facility], , 08/26/2024 12:57 PM
[2024-08-26 13:04] LABS: % Iron Saturation 11.94 (15.00-50.00); Iron 43 UG/DL (65-175); Total Iron Binding Capacity 360 UG/DL (228-460)
--- NOTE | 2024-08-26 14:26 | P.CNNES ---
History of Present Illness Consult date: 08/26/24 Requesting physician: Tj William Reason for Consult: AMS, hx seizures History of Present Illness: Patient is a 74-year-old male, who is mentally challenged, with history of static encephalopathy, hydrocephalus, chronic right hemiplegia, minimal verbal state since , came to the hospital by ambulance yesterday at 9:54 PM for altered mental status. Patient's sister was present, who provided with a history. She mentions that patient was a difficult with forceps delivery. Patient has history of hydrocephalus at , [place] measles at age 3 after which patient started having seizure disorder, right spastic hemiparesis. Patient's sister mentions that patient used to be mobile, would walk with right spastic gait, used to drag leg, with right foot everted while walking. He would have occasional falls. About 2 years ago patient had a fall and fractured his ankle. Since then he has been afraid of walking, and has been wheelchair-bound. Patient has very limited speech, speaks in phrases like, as if he would be in the shower with water to hot, he will say "too hot sissy", "ouch", "hi, I love you", "bye", or he would sing with the radio. Patient's sister mentions that about 2 weeks ago, he fell off the bed, and was unwitnessed. Uncertain if it was a seizure. He is in adult diapers. He does use toilet during the day but at night uses his adult diapers. She mentions that he is very determined, he can make himself clear if he needs any attention. Even now being wheelchair- bound, he is very pleasant, watches TV, but his appetite has decreased. He sleeps in the hospital bed. He was brought to the hospital because it looked like he was in pain, he groaned, which is unusual for him and he was wheezing. Patient has history of seizure disorder since age 3. Patient's sister states that he has not had any seizure for a long time. The last time that she remembers having him seizure is about 40 years ago. He had 1 seizure in the adult foster care, but it was long time ago and she does not remember. His seizures are well-controlled on current medication regimen. EMS flowsheet not available in the chart. Vital signs on arrival blood pressure 44/33, which came up to 87/35 and then 76/25 and then 80/25. Pulse rate 29. Rectal temperature 87.6. Now the temperature has normalized. Blood test shows WBC 15.0 hemoglobin 11.2, platelets are normal. INR 1.2. VBG with pH of 7.37. pCO2 of 44 and HCO3 25. Sodium 151 potassium 3.9, BUN 48, creatinine 0.61. H epatic panel is normal. Troponin negative, ammonia is normal less than 9. TSH is elevated 7.35 with normal free T40.97. UA with large amount of leukocyte Estrace and 20 WBCs and many bacteria. Influenza, RSV and coronavirus PCR negative. Patient's ABG showed pH of 7.37, pCO2 43 pO2 52, saturation 86%. Sodium 151. Renal functions are stable. Dilantin level 14.[address] head showed no acute intracranial hemorrhage or herniation. 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 Diffuse cerebellar atrophy, right greater than left. Chest x-ray showed reduced lung volumes with bronchovascular crowding. Right greater than left basilar opacities, atelectasis or pneumonia. Abdominal ultrasound showed no hydronephrosis or nephrolithiasis. Home medications include Depakote 250 mg 3 times daily, Dilantin 100 mg 3 times daily, aspirin 81 mg, vitamin D, propranolol, Flomax, Xanax 0.25 mg at bedtime as needed, Zithromax. Review of Systems ROS unobtainable: due to mental status 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, Rt ankle fracture 2 years ago, nonverbal, seizure disorder History of Any Multi-Drug Resistant Organisms: None Reported Past Surgical History: No Surgical Hx Reported Past Psychological History: No Psychological Hx Reported Smoking Status: Never smoker Past Alcohol Use History: None Reported Past Drug Use History: None Reported Medications and Allergies Home Medications Medication Instructions Recorded Confirmed Type Acetaminophen [Tylenol] 325 mg PO Q4H PRN 03/19/14 08/26/24 History Aspirin 81 mg PO DAILY 03/19/14 08/26/24 History Chlorhexidine Gluconate [Peridex] 15 ml PO BID 03/19/14 08/26/24 History Phenytoin Sodium Extended 100 mg PO TID 03/19/14 08/26/24 History [Dilantin] Propranolol HCl [Propranolol HCl 60 mg PO DAILY 03/19/14 08/26/24 History ER] Tamsulosin [Flomax] 0.4 mg PO DAILY 03/19/14 08/26/24 History Divalproex ER [Depakote ER] 1,000 mg PO BID 08/26/24 08/26/24 History Furosemide [Lasix] 20 mg PO DAILY 08/26/24 08/26/24 History Levothyroxine Sodium [Synthroid] 25 mcg PO DAILY 08/26/24 08/26/24 History Menthol-Zinc Oxide Oint 1 applic TOPICAL DAILY PRN 08/26/24 08/26/24 History [Calmoseptine Ointment] Multivitamins, Thera [Multivitamin 1 tab PO DAILY 08/26/24 08/26/24 History (formulary)] Potassium Chloride ER [K-Dur 10] 10 meq PO DAILY 08/26/24 08/26/24 History guaiFENesin SYRUP 100MG/5ML 200 mg PO Q4H 08/26/24 08/26/24 History [Robitussin] Allergies Allergy/AdvReac Type Severity Reaction Status Date / Time No Known Allergies Allergy Verified 08/26/24 12:16 Physical Examination - Vital Signs Vital Signs: Vital Signs Temp Pulse Pulse Resp BP Pulse Ox FiO2 08/26/24 11:20 67 9 L 62/45 97 08/26/24 11:10 66 17 114/94 97 08/26/24 11:00 65 17 98 08/26/24 10:50 67 10 L 91/81 98 08/26/24 10:40 68 17 83/62 98 08/26/24 10:30 68 11 L 96 08/26/24 10:20 68 12 105/81 92 L 08/26/24 10:10 71 16 91/74 91 L 08/26/24 10:00 97.3 F L 68 17 98/33 91 L 08/26/24 09:50 70 20 98/33 96 08/26/24 09:40 66 20 95/66 95 08/26/24 09:30 69 19 99/84 92 L 08/26/24 09:20 65 18 99/84 96 08/26/24 09:10 65 18 116/89 93 L 08/26/24 09:00 96.8 F L 66 22 95 08/26/24 08:50 66 20 96 08/26/24 08:40 69 19 129/98 91 L 08/26/24 08:30 67 13 89 L 08/26/24 08:20 68 18 122/109 90 L 08/26/24 08:10 66 15 105/91 95 08/26/24 08:00 67 15 94/75 08/26/24 07:50 65 15 94/75 92 L 08/26/24 07:40 65 23 115/73 94 L 08/26/24 07:30 95.2 F L 65 15 94/58 95 08/26/24 07:00 60 16 95/79 95 08/26/24 06:50 61 16 95/79 94 L 08/26/24 06:40 58 L 16 90/76 92 L 08/26/24 06:30 59 L 16 140/80 94 L 08/26/24 06:20 52 L 15 140/80 94 L 08/26/24 06:10 61 9 L 86/47 08/26/24 06:00 60 11 L 68/53 08/26/24 05:50 60 14 68/53 08/26/24 05:40 60 16 102/54 08/26/24 05:30 62 18 108/45 08/26/24 05:10 84/72 08/26/24 05:00 80/38 08/26/24 04:50 61 21 80/38 08/26/24 04:40 61 17 121/44 08/26/24 04:30 61 21 88/46 08/26/24 04:20 61 14 88/46 08/26/24 04:10 61 19 100/67 08/26/24 04:00 90.3 F L 60 61 19 117/53 08/26/24 03:50 59 L 16 117/53 08/26/24 03:40 58 L 15 99/71 08/26/24 03:30 58 L 17 102/89 08/26/24 03:20 58 L 16 102/89 08/26/24 03:10 57 L 15 97/68 85 L 08/26/24 03:00 56 L 11 L 120/103 91 L 08/26/24 02:50 56 L 16 120/103 92 L 08/26/24 02:40 56 L 11 L 116/102 91 L 08/26/24 02:30 55 L 13 96/35 90 L 08/26/24 02:20 55 L 15 77 L 08/26/24 02:10 55 L 11 L 58/38 86 L 08/26/24 02:00 54 L 10 L 94/50 85 L 100 08/26/24 01:50 54 L 8 L 110/73 87 L 08/26/24 01:40 53 L 12 109/55 92 L 08/26/24 01:30 53 L 10 L 107/45 93 L 08/26/24 01:20 52 L 8 L 100/63 94 L 08/26/24 01:10 51 L 7 L 109/57 89 L 08/26/24 01:00 86.5 F L 49 L 51 L 7 L 80/53 93 L 08/26/24 00:50 50 L 5 L 87/64 95 08/26/24 00:46 27 L 08/26/24 00:42 80 L 08/26/24 00:19 86.0 F L 61 15 80/25 92 L 08/26/24 00:00 29.9 F L 43 L 20 76/25 92 L 08/25/24 23:39 85.8 F L 40 L 20 87/35 90 L 08/25/24 22:14 87.6 F L 29 L 15 44/33 97 Intake and Output 08/25/24 08/26/24 08/26/24 22:59 06:59 14:59 Intake Total 705.390 764.845 Output Total 490 90 Balance 215.390 674.845 Intake: IV 650 269 .9NS Pressure Bag 9 Sodium Chloride 0.9% 1, 650 260 000 ml @ 130 mls/hr IV . Q7H42M [facility] Rx#:[id number] Intake, IV Titration 55.390 495.845 Amount DOPamine DRIP 800 mg In 30.873 178.757 Dextrose/Water 1 250ml. bag @ 5 MCG/KG/MIN 7.654 mls/hr IV .Q24H [facility] Rx#: [id number] Dextrose 5% in Water 1, 200 000 ml @ 100 mls/hr IV . Q10H [facility] Rx#:[id number] Norepinephrine 32 mg In 24.517 17.088 Sodium Chloride 0.9% 218 ml @ 0.05 MCG/KG/MIN 1. 914 mls/hr IV .Q24H [facility] Rx#:[id number] Piperacillin-Tazobactam 3 100 .375 gm In Sodium Chloride 0.9% 100 ml @ 25 mls/hr IVPB Q8H [facility] Rx#: [id number] Output: Urine 490 90 Other: Voiding Method Indwelling Catheter Weight 81.647 kg 71.6 kg 71.6 kg ABP, PAP, CO, CI - Last 8 Hours Arterial Blood Pressure 90/48 Arterial Blood Pressure 103/52 Arterial Blood Pressure 97/49 Arterial Blood Pressure 70/38 Arterial Blood Pressure 93/50 Arterial Blood Pressure 79/45 Arterial Blood Pressure 81/46 Arterial Blood Pressure 94/48 Arterial Blood Pressure 105/52 Arterial Blood Pressure 99/48 Arterial Blood Pressure 96/51 Arterial Blood Pressure 109/53 Arterial Blood Pressure 108/55 Arterial Blood Pressure 110/56 Arterial Blood Pressure 104/54 Arterial Blood Pressure 105/54 Arterial Blood Pressure 118/59 Arterial Blood Pressure 121/59 Arterial Blood Pressure 128/63 Arterial Blood Pressure 106/57 Arterial Blood Pressure 118/62 Arterial Blood Pressure 110/60 Arterial Blood Pressure 119/64 Arterial Blood Pressure 122/61 Arterial Blood Pressure 118/60 Arterial Blood Pressure 124/61 Arterial Blood Pressure 135/64 Arterial Blood Pressure 147/65 Arterial Blood Pressure 108/59 Arterial Blood Pressure 115/60 Arterial Blood Pressure 118/60 Arterial Blood Pressure 115/62 Arterial Blood Pressure 112/62 Arterial Blood Pressure 115/64 Arterial Blood Pressure 118/64 Arterial Blood Pressure 106/61 Arterial Blood Pressure 109/63 Patient is an elderly male, who is obtunded, encephalopathic. Patient is currently on norepinephrine 0.2 mcg/kg/min, dopamine 7 mcg/kg/min, vancomycin and IV fluids running at 100 cc/h. Patient is obtunded, severely encephalopathic. Attention, concentration is severely decreased and fund of knowledge is very limited at baseline, worse now. On cranial nerve examination, pupils are equal, round and reacting to light, gaze is in the midline. No obvious seizure-like activity noted. Oculocephalics were difficult to assess because of patient keeping his eyes closed. Visual ely cannot be tested. Face appears symmetric. Lower cranial nerves cannot be assessed. On muscle strength testing, patient appears to be very spastic hemiplegic on the right side, with arm spastic. Patient's sister mentions that he can use his right arm just to hold off on something against his chest. He is moving his left arm spontaneously. Patient's right leg also appears spastic. His left leg also appears weak. Deep tendon reflexes are symmetric and plantars are upgoing bilaterally. Sensory to touch or neglect cannot be assessed.. Cerebellar function cannot be assessed. Tone is significantly increased on the right side of the body and bulk of muscles normal. Gait deferred.. On general examination, there is no carotid bruit or murmur, S1-S2 audible. Chest is clear on consultation. Abdomen is soft nontender. No organomegaly, bowel sounds present. Patient has peripheral edema. Results - Laboratory Findings CBC and BMP: 08/26/24 04:08 08/26/24 04:08 Abnormal Lab Findings: Abnormal Labs 08/25/24 08/25/24 08/25/24 22:12 22:12 22:12 WBC 15.0 H RBC 3.77 L Hgb 11.2 L Hct 37.6 L MCHC 29.8 L Neutrophils # 11.9 H PT 12.7 H INR 1.2 H ABG pO2 ABG Total CO2 ABG O2 Saturation Hemoglobin Sodium 151 H Chloride 116 H BUN 48 H Creatinine 0.61 L Glucose 134 H POC Glucose (mg/dL) Plasma Lactic Acid Eitan Calcium Magnesium 2.6 H AST Alkaline Phosphatase 191 H Albumin 2.8 L Lipase TSH 7.350 H Ur Leukocyte Esterase Urine WBC Urine WBC Clumps Urine Bacteria Hyaline Casts Urine Mucus Ur Barbiturates Screen 08/25/24 08/26/24 08/26/24 23:06 00:35 00:46 WBC RBC Hgb Hct MCHC Neutrophils # PT INR ABG pO2 ABG Total CO2 ABG O2 Saturation Hemoglobin Sodium Chloride BUN Creatinine Glucose POC Glucose (mg/dL) 127 H Plasma Lactic Acid Eitan 2.1 H* Calcium Magnesium AST Alkaline Phosphatase Albumin Lipase TSH Ur Leukocyte Esterase Large H Urine WBC 20 H Urine WBC Clumps Rare H Urine Bacteria Many H Hyaline Casts 13 H Urine Mucus Rare H Ur Barbiturates Screen 08/26/24 08/26/24 08/26/24 01:00 01:24 04:08 WBC 14.1 H RBC 4.16 L Hgb 12.1 L Hct MCHC 29.2 L Neutrophils # 12.2 H PT INR ABG pO2 ABG Total CO2 ABG O2 Saturation Hemoglobin Sodium 151 H Chloride 117 H BUN 46 H Creatinine 0.55 L Glucose 133 H POC Glucose (mg/dL) Plasma Lactic Acid Eitan Calcium Magnesium AST 68 H Alkaline Phosphatase 211 H Albumin 3.2 L Lipase 1661 H TSH Ur Leukocyte Esterase Urine WBC Urine WBC Clumps Urine Bacteria Hyaline Casts Urine Mucus Ur Barbiturates Screen Detected H 08/26/24 08/26/24 08/26/24 04:08 04:40 11:21 WBC RBC Hgb Hct MCHC Neutrophils # PT INR ABG pO2 52 L* ABG Total CO2 26 H ABG O2 Saturation 86.4 L Hemoglobin 12.4 L Sodium 151 H Chloride 116 H BUN 45 H Creatinine 0.57 L Glucose 153 H POC Glucose (mg/dL) 130 H Plasma Lactic Acid Eitan Calcium 8.3 L Magnesium AST Alkaline Phosphatase Albumin Lipase TSH Ur Leukocyte Esterase Urine WBC Urine WBC Clumps Urine Bacteria Hyaline Casts Urine Mucus Ur Barbiturates Screen Assessment and Plan Assessment: * Altered mental status likely due to toxic metabolic encephalopathy. * Status post hypothermia, hypotension, bradycardia, improved. Patient currently on pressors with norepinephrine and dopamine. * Rule out sepsis. * Possible septic shock * Bacterial pneumonia * Acute respiratory failure * Hypernatremia * Seizure disorder, currently in remission * Mentally challenged * History of right spastic hemiparesis * Wheelchair-bound * Minimal verbal state, at baseline Plan: * Treatment of various metabolic/medical conditions as per IM, critical care and other specialties on board. * Vitamin B12 1896, Dilantin level 14.7 which is therapeutic and Depakote 40.6. * Continue same dose of seizure medication including Dilantin 100 mg 3 times daily and Depakote 1000 mg every 12 hours. While in the hospital, patient will be given Depakote 500 mg IV every 6 hours, and Dilantin 100 mg IV every 8 hours. * Check EEG in the morning to evaluate for encephalopathy, rule out any focal seizures. * Neurology will follow clinically. * Discussed with patient's family and nursing staff in detail. Thank you for the consult.
[2024-08-26] MEDS: CEFEPIME 2 GM in SODIUM CHLORIDE 0.9% 100 ML IVPB SCH (15:06)
[2024-08-26] MEDS: PHENYTOIN SODIUM INJ 50 MG/ML 2 ML VIAL IVP SCH (16:09)
[2024-08-26] MEDS: ACETAMINOPHEN IV (For NPO) 1,000 MG in EMPTY BAG 1 BAG IVPB ONE (16:23)
--- NOTE | 2024-08-26 16:30 | P.CRDCN ---
History of Present Illness Consult date: 08/26/24 Consult reason: other (Bradycardia) Chief complaint: Unresponsive History of present illness: History of present illness: Patient is a pleasant 74-year-old male with significant past medical history of cognitive impairment currently residing in an adult foster center, seizure, hypothyroidism who presented via EMS with altered mental status. Patient is currently unresponsive and unable to answer questions. Sister at bedside able to provide some history. She reports family history of mother having CABG in her 50s. She reports that caregiver noticed that he was coughing for the past couple days and apparently had a chest x-ray at the facility. Patient was then noted to not be eating and normally eats very well. He was then less responsive and EMS was called. EKG in the emergency room showed sinus bradycardia with a heart rate of 27 bpm, no heart block. His core temp was 85.8 F with blood pressure 44/33. Chest x-ray shows bibasilar opacities he was hypotensive and started on a dopamine and Levophed drip. Head CT with no acute findings however shows extensive encephalomalacia. Kidney ultrasound was done and shows no hydrocephalus. He has apparently mostly nonverbal at baseline. Labs reviewed: WBC 14.1, hemoglobin 12.1, sodium 151, potassium 4.0, creatinine 0.57, TSH 7.3, troponin negative x 1, BNP 305. RN reports attempting to wean dopamine however blood pressure did not tolerate and had to go up again. Sister reports no history of syncope and patient has been wheelchair-bound for the past 2 years. REVIEW OF SYSTEMS: Unable to assess, patient unresponsive and nonverbal. PHYSICAL EXAMINATION: This is a 74-year-old male in no apparent distress at the time of my examination. HEENT: Head is atraumatic, normocephalic. Mucous membranes of the mouth are moist. Neck is supple. There is no jugular venous distention. CHEST EXAMINATION: Lungs with rhonchi. On nonrebreather face mask. No chest wall tenderness is noted on palpation or with deep breathing. HEART EXAMINATION: Heart regular rate and rhythm. S1, S2 heard. No murmurs, gallops or rub. ABDOMEN: Soft, nontender. Bowel sounds are heard. EXTREMITIES: 2+ peripheral pulses, evidence of +1 peripheral edema. NEUROLOGIC EXAMINATION: Patient is drowsy, responds to voice but not currently opening eyes. IMPRESSION AND PLAN: Bradycardia, improved Cognitive impairment History of seizures Altered mental status Hypotension Hypothermia Hypernatremia Leukocytosis Likely septic shock PLAN: We will check echocardiogram to evaluate heart function and structure. Heart rates have been 60s70s. Hold home propranolol at this time. Monitor heart rates, wean pressors as able. Would likely recommend outpatient monitor. Further recommendations pending patient's course. I am dictating on behalf of Dr. Seven Fuentes's history/physical and assessment/plan. 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, Rt ankle fracture 2 years ago, nonverbal, seizure disorder History of Any Multi-Drug Resistant Organisms: None Reported Past Surgical History: No Surgical Hx Reported Past Psychological History: No Psychological Hx Reported Smoking Status: Never smoker Past Alcohol Use History: None Reported Past Drug Use History: None Reported Medications and Allergies Home Medications Medication Instructions Recorded Confirmed Type Acetaminophen [Tylenol] 325 mg PO Q4H PRN 03/19/14 08/26/24 History Aspirin 81 mg PO DAILY 03/19/14 08/26/24 History Chlorhexidine Gluconate [Peridex] 15 ml PO BID 03/19/14 08/26/24 History Phenytoin Sodium Extended 100 mg PO TID 03/19/14 08/26/24 History [Dilantin] Propranolol HCl [Propranolol HCl 60 mg PO DAILY 03/19/14 08/26/24 History ER] Tamsulosin [Flomax] 0.4 mg PO DAILY 03/19/14 08/26/24 History Divalproex ER [Depakote ER] 1,000 mg PO BID 08/26/24 08/26/24 History Furosemide [Lasix] 20 mg PO DAILY 08/26/24 08/26/24 History Levothyroxine Sodium [Synthroid] 25 mcg PO DAILY 08/26/24 08/26/24 History Menthol-Zinc Oxide Oint 1 applic TOPICAL DAILY PRN 08/26/24 08/26/24 History [Calmoseptine Ointment] Multivitamins, Thera [Multivitamin 1 tab PO DAILY 08/26/24 08/26/24 History (formulary)] Potassium Chloride ER [K-Dur 10] 10 meq PO DAILY 08/26/24 08/26/24 History guaiFENesin SYRUP 100MG/5ML 200 mg PO Q4H 08/26/24 08/26/24 History [Robitussin] Allergies Allergy/AdvReac Type Severity Reaction Status Date / Time No Known Allergies Allergy Verified 08/26/24 12:16 Physical Exam Vitals: Vital Signs Temp Pulse Pulse Resp BP Pulse Ox FiO2 08/26/24 13:00 68 17 95 08/26/24 12:45 71 15 93 L 08/26/24 12:30 98.6 F 66 16 109/95 99 08/26/24 12:15 66 19 89/62 98 08/26/24 12:00 74 15 91/81 87 L 08/26/24 11:45 68 15 95 08/26/24 11:30 66 15 98 08/26/24 11:20 67 9 L 62/45 97 08/26/24 11:10 66 17 114/94 97 08/26/24 11:00 65 17 98 08/26/24 10:50 67 10 L 91/81 98 08/26/24 10:40 68 17 83/62 98 08/26/24 10:30 68 11 L 96 08/26/24 10:20 68 12 105/81 92 L 08/26/24 10:10 71 16 91/74 91 L 08/26/24 10:00 97.3 F L 68 17 98/33 91 L 08/26/24 09:50 70 20 98/33 96 08/26/24 09:40 66 20 95/66 95 08/26/24 09:30 69 19 99/84 92 L 08/26/24 09:20 65 18 99/84 96 08/26/24 09:10 65 18 116/89 93 L 08/26/24 09:00 96.8 F L 66 22 95 08/26/24 08:50 66 20 96 08/26/24 08:40 69 19 129/98 91 L 08/26/24 08:30 67 13 89 L 08/26/24 08:20 68 18 122/109 90 L 08/26/24 08:10 66 15 105/91 95 08/26/24 08:00 67 15 94/75 08/26/24 07:50 65 15 94/75 92 L 08/26/24 07:40 65 23 115/73 94 L 08/26/24 07:30 95.2 F L 65 15 94/58 95 08/26/24 07:00 60 16 95/79 95 08/26/24 06:50 61 16 95/79 94 L 08/26/24 06:40 58 L 16 90/76 92 L 08/26/24 06:30 59 L 16 140/80 94 L 08/26/24 06:20 52 L 15 140/80 94 L 08/26/24 06:10 61 9 L 86/47 08/26/24 06:00 60 11 L 68/53 08/26/24 05:50 60 14 68/53 08/26/24 05:40 60 16 102/54 08/26/24 05:30 62 18 108/45 08/26/24 05:10 84/72 08/26/24 05:00 80/38 08/26/24 04:50 61 21 80/38 08/26/24 04:40 61 17 121/44 08/26/24 04:30 61 21 88/46 08/26/24 04:20 61 14 88/46 08/26/24 04:10 61 19 100/67 08/26/24 04:00 90.3 F L 60 61 19 117/53 08/26/24 03:50 59 L 16 117/53 08/26/24 03:40 58 L 15 99/71 08/26/24 03:30 58 L 17 102/89 08/26/24 03:20 58 L 16 102/89 08/26/24 03:10 57 L 15 97/68 85 L 08/26/24 03:00 56 L 11 L 120/103 91 L 08/26/24 02:50 56 L 16 120/103 92 L 08/26/24 02:40 56 L 11 L 116/102 91 L 08/26/24 02:30 55 L 13 96/35 90 L 08/26/24 02:20 55 L 15 77 L 08/26/24 02:10 55 L 11 L 58/38 86 L 08/26/24 02:00 54 L 10 L 94/50 85 L 100 08/26/24 01:50 54 L 8 L 110/73 87 L 08/26/24 01:40 53 L 12 109/55 92 L 08/26/24 01:30 53 L 10 L 107/45 93 L 08/26/24 01:20 52 L 8 L 100/63 94 L 08/26/24 01:10 51 L 7 L 109/57 89 L 08/26/24 01:00 86.5 F L 49 L 51 L 7 L 80/53 93 L 08/26/24 00:50 50 L 5 L 87/64 95 08/26/24 00:46 27 L 08/26/24 00:42 80 L 08/26/24 00:19 86.0 F L 61 15 80/25 92 L 08/26/24 00:00 29.9 F L 43 L 20 76/25 92 L 08/25/24 23:39 85.8 F L 40 L 20 87/35 90 L 08/25/24 22:14 87.6 F L 29 L 15 44/33 97 Intake and Output 08/25/24 08/26/24 08/26/24 22:59 06:59 14:59 Intake Total 798.182 2352.632 Output Total 490 135 Balance 215.390 997.632 Intake: IV 650 275 .9NS Pressure Bag 15 Sodium Chloride 0.9% 1, 650 260 000 ml @ 130 mls/hr IV . Q7H42M [facility] Rx#:[id number] Intake, IV Titration 55.390 857.632 Amount DOPamine DRIP 800 mg In 30.873 178.757 Dextrose/Water 1 250ml. bag @ 5 MCG/KG/MIN 7.654 mls/hr IV .Q24H ONE Rx#: [id number] Dextrose 5% in Water 1, 300 000 ml @ 100 mls/hr IV . Q10H [facility] Rx#:[id number] Norepinephrine 32 mg In 24.517 28.875 Sodium Chloride 0.9% 218 ml @ 0.05 MCG/KG/MIN 1. 914 mls/hr IV .Q24H [facility] Rx#:[id number] Piperacillin-Tazobactam 3 100 .375 gm In Sodium Chloride 0.9% 100 ml @ 25 mls/hr IVPB Q8H [facility] Rx#: [id number] Vancomycin 1,250 mg In 250 Sodium Chloride 0.9% 250 ml @ 125 mls/hr IVPB Q8H [facility] Rx#:[id number] Output: Urine 490 135 Other: Voiding Method Indwelling Catheter Weight 81.647 kg 71.6 kg 71.6 kg ABP, PAP, CO, CI - Last 8 Hours Arterial Blood Pressure 96/49 Arterial Blood Pressure 114/50 Arterial Blood Pressure 88/43 Arterial Blood Pressure 108/45 Arterial Blood Pressure 76/44 Arterial Blood Pressure 99/48 Arterial Blood Pressure 90/48 Arterial Blood Pressure 90/48 Arterial Blood Pressure 103/52 Arterial Blood Pressure 97/49 Arterial Blood Pressure 70/38 Arterial Blood Pressure 93/50 Arterial Blood Pressure 79/45 Arterial Blood Pressure 81/46 Arterial Blood Pressure 94/48 Arterial Blood Pressure 105/52 Arterial Blood Pressure 99/48 Arterial Blood Pressure 96/51 Arterial Blood Pressure 109/53 Arterial Blood Pressure 108/55 Arterial Blood Pressure 110/56 Arterial Blood Pressure 104/54 Arterial Blood Pressure 105/54 Arterial Blood Pressure 118/59 Arterial Blood Pressure 121/59 Arterial Blood Pressure 128/63 Arterial Blood Pressure 106/57 Arterial Blood Pressure 118/62 Arterial Blood Pressure 110/60 Arterial Blood Pressure 119/64 Arterial Blood Pressure 122/61 Arterial Blood Pressure 118/60 Arterial Blood Pressure 124/61 Arterial Blood Pressure 135/64 Arterial Blood Pressure 147/65 Arterial Blood Pressure 108/59 Arterial Blood Pressure 115/60 Arterial Blood Pressure 118/60 Arterial Blood Pressure 115/62 Results 08/26/24 04:08 08/26/24 04:08 Cardiac Enzymes 08/25/24 08/25/24 08/26/24 Range/Units 22:12 22:12 01:00 AST 57 68 H (17-59) U/L Troponin I <0.012 (0.000-0.034) ng/mL Coagulation 08/25/24 Range/Units 22:12 PT 12.7 H (10.0-12.5) sec APTT 27.3 (22.0-30.0) sec CBC 08/25/24 08/26/24 Range/Units 22:12 04:08 WBC 15.0 H 14.1 H (3.8-10.6) k/uL RBC 3.77 L 4.16 L (4.30-5.90) m/uL Hgb 11.2 L 12.1 L (13.0-17.5) gm/dL Hct 37.6 L 41.5 (39.0-53.0) % Plt Count 244 272 (150-450) k/uL Comprehensive Metabolic Panel 08/25/24 08/26/24 08/26/24 Range/Units 22:12 01:00 04:08 Sodium 151 H 151 H 151 H (137-145) mmol/L Potassium 3.9 4.0 4.0 (3.5-5.1) mmol/L Chloride 116 H 117 H 116 H (98-107) mmol/L Carbon Dioxide 29 24 25 (22-30) mmol/L BUN 48 H 46 H 45 H (9-20) mg/dL Creatinine 0.61 L 0.55 L 0.57 L (0.66-1.25) mg/dL Glucose 134 H 133 H 153 H (74-99) mg/dL Calcium 8.4 8.7 8.3 L (8.4-10.2) mg/dL AST 57 68 H (17-59) U/L ALT 30 32 (4-49) U/L Alkaline Phosphatase 191 H 211 H (38-126) U/L Total Protein 6.3 7.0 (6.3-8.2) g/dL Albumin 2.8 L 3.2 L (3.5-5.0) g/dL Current Medications Generic Name Dose Route Start Last Admin Trade Name Freq PRN Reason Stop Dose Admin Enoxaparin Sodium 40 mg 08/26/24 09:00 08/26/24 08:18 Enoxaparin 40 Mg/0.4 Ml Syringe SQ 40 mg DAILY [facility] Administration Hydrocortisone Sodium Succinate 100 mg 08/26/24 21:00 Hydrocortisone Succinate 100 Mg/2 Ml Vial IV Q12HR [facility] Norepinephrine Bitartrate 32 250 mls @ 1.914 mls/hr 08/25/24 23:00 08/26/24 12:54 mg/ Sodium Chloride IV 0.19 mcg/kg/min .Q24H [facility] 7.272 mls/hr Titration Protocol 0.05 MCG/KG/MIN Dopamine HCl/Dextrose 800 mg/ 250 mls @ 7.654 mls/hr 08/25/24 23:00 08/26/24 11:40 IV Solution IV 08/26/24 22:59 7 mcg/kg/min .Q24H ONE 10.716 mls/hr Administration Protocol 5 MCG/KG/MIN Vancomycin HCl 1,250 mg/ 250 mls @ 125 mls/hr 08/26/24 11:00 08/26/24 11:38 Sodium Chloride IVPB 125 mls/hr Q8H [facility] Administration Dextrose/Water 1,000 mls @ 100 mls/hr 08/26/24 08:45 08/26/24 08:52 Dextrose 5%-Water Iv Soln IV 100 mls/hr .Q10H [facility] Administration Cefepime HCl 2 gm/ Sodium 100 mls @ 25 mls/hr 08/26/24 16:00 Chloride IVPB Q8HR [facility] Protocol Metronidazole 500 mg/ IV 100 mls @ 100 mls/hr 08/26/24 16:00 Solution IVPB Q8HR [facility] Protocol Levothyroxine Sodium 125 mcg 08/26/24 06:30 08/26/24 05:34 Levothyroxine 125 Mcg Tab PO Not Given DAILY@0630 [facility] Miscellaneous Information 0 each 08/27/24 10:00 Vancomycin Trough Due 1 Each Misc MISCELLANE 08/27/24 10:01 DIRECTED ONE Naloxone HCl 0.2 mg 08/25/24 22:37 Naloxone 0.4 Mg/Ml 1 Ml Vial IV Q2M PRN Opioid Reversal Tamsulosin HCl 0.4 mg 08/27/24 09:00 Tamsulosin 0.4 Mg Cap.Er.24h PO DAILY [facility] Intake and Output 08/25/24 08/26/24 08/26/24 22:59 06:59 14:59 Intake Total 502.746 1852.632 Output Total 490 135 Balance 215.390 997.632 Intake: IV 650 275 .9NS Pressure Bag 15 Sodium Chloride 0.9% 1, 650 260 000 ml @ 130 mls/hr IV . Q7H42M [facility] Rx#:[id number] Intake, IV Titration 55.390 857.632 Amount DOPamine DRIP 800 mg In 30.873 178.757 Dextrose/Water 1 250ml. bag @ 5 MCG/KG/MIN 7.654 mls/hr IV .Q24H ONE Rx#: [id number] Dextrose 5% in Water 1, 300 000 ml @ 100 mls/hr IV . Q10H [facility] Rx#:[id number] Norepinephrine 32 mg In 24.517 28.875 Sodium Chloride 0.9% 218 ml @ 0.05 MCG/KG/MIN 1. 914 mls/hr IV .Q24H [facility] Rx#:[id number] Piperacillin-Tazobactam 3 100 .375 gm In Sodium Chloride 0.9% 100 ml @ 25 mls/hr IVPB Q8H [facility] Rx#: [id number] Vancomycin 1,250 mg In 250 Sodium Chloride 0.9% 250 ml @ 125 mls/hr IVPB Q8H [facility] Rx#:[id number] Output: Urine 490 135 Other: Voiding Method Indwelling Catheter Weight 81.647 kg 71.6 kg 71.6 kg Patient Weight 08/27/24 06:59 Weight 71.6 kg 08/26/24 04:08 08/26/24 04:08
[2024-08-26] MEDS: metroNIDAZOLE-NS PMX 500 MG in SALINE 1 100ML.BAG IVPB SCH (16:50)
[2024-08-26] MEDS: VALPROATE SODIUM 500 MG in SODIUM CHLORIDE 0.9% 100 ML IVPB SCH (17:12)
[2024-08-26 18:48] LABS: Glucose,Whole Blood 142 mg/dL (70-110)
[2024-08-26] MEDS: HYDROCORTISONE SUCCINATE 100 MG/2 ML VIAL IV SCH (21:01)
[2024-08-27 00:46] LABS: Glucose,Whole Blood 175 mg/dL (70-110)
[2024-08-27] MEDS: DOPamine DRIP 800 MG in DEXTROSE/WATER 1 250ML.BAG IV SCH (04:15)
[2024-08-27 05:21] LABS: Basophils % (A) 0 %; Eosinophils % (A) 0 %; HCT 34.3 % (39.0-53.0); HGB 10.3 gm/dL (13.0-17.5); Hypochromasia Marked; Lymphocytes # (A) 1.4 k/uL (1.0-4.8); Lymphocytes % (A) 11 %; MCH 29.2 pg (25.0-35.0); MCHC 29.9 g/dL (31.0-37.0); MCV 97.6 fL (80.0-100.0); Mean Platelet Volume 12.2; Monocytes # (A) 0.4 k/uL (0-1.0); Monocytes % (A) 3 %; Neutrophils % (A) 84 %; Platelet Count 166 k/uL (150-450); RBC 3.52 m/uL (4.30-5.90); RDW 14.8 % (11.5-15.5); WBC 13.1 k/uL (3.8-10.6)
[2024-08-27 06:03] LABS: Glucose,Whole Blood 134 mg/dL (70-110)
--- NOTE | 2024-08-27 07:19 | XR ---
EXAMINATION TYPE: XR chest 1V portable DATE OF EXAM: 08/27/2024 5:23 AM COMPARISON: 08/26/2024 CLINICAL INDICATION: Male, 74 years old with history of assess lungs, TECHNIQUE: XR chest 1V portable views of the chest are obtained. FINDINGS: Demonstrated are scattered senescent parenchymal change. There is patchy infiltrate left lower lobe to reflect an underlying pneumonia. Correlate clinically. Current study is limited by patient rotation. NG tube and right-sided central venous line unchanged i n position. The heart is stable. Hilar and mediastinal structures are within normal limits. Degenerative changes are seen of the dorsal spine. IMPRESSION: 1. There is patchy infiltrate left lower lobe to reflect an underlying pneumonia. Correlate clinical ly. [facility], , 08/27/2024 7:17 AM
[2024-08-27 07:27] LABS: ALT 25 U/L (4-49); AST 47 U/L (17-59); African American GFR (CKD) >90 (>60 ml/min/1.73 sqM); Albumin 2.5 g/dL (3.5-5.0); Alkaline Phosphatase 173 U/L (38-126); Anion Gap 8 mmol/L; Blood Urea Nitrogen 34 mg/dL (9-20); Calcium 7.7 mg/dL (8.4-10.2); Carbon Dioxide 22 mmol/L (22-30); Chloride 115 mmol/L (98-107); Glucose 152 mg/dL (74-99); Non-African American GFR(CKD) >90 (>60 ml/min/1.73 sqM); Potassium 3.7 mmol/L (3.5-5.1); Sodium 145 mmol/L (137-145); Total Bilirubin 0.3 mg/dL (0.2-1.3); Total Protein 5.8 g/dL (6.3-8.2)
[2024-08-27] MEDS: LEVOTHYROXINE IVP 100 MCG/5 ML VIAL IV SCH (08:35)
[2024-08-27] MEDS: TAMSULOSIN 0.4 MG CAP.ER.24H PO SCH (08:45)
[2024-08-27] MEDS ORDERED: VANCOMYCIN TROUGH DUE 1 EACH MISC MISCELLANE ONE (10:00)
[2024-08-27] MEDS: POTASSIUM CHLORIDE 10 MEQ in WATER FOR INJECTION 1 100ML.BAG IVPB SCH (10:43)
--- NOTE | 2024-08-27 12:22 | P.PN ---
Subjective Progress Note Date: 08/27/24 Subjective: Patient seen and examined at bedside. No acute events overnight. Having productive cough. Pertinent positives and negatives as discussed above, a complete review of systems was performed and all other systems are negative. Vitals Signs Reviewed. General: Nontoxic, in mild acute distress distress, appears at stated age Derm: Warm, dry Head: Atraumatic, normocephalic, symmetric Eyes: EOMI, no lid lag, anicteric sclera Mouth: No lip lesion, mucus membranes moist Cardiovascular: S1S2 reg, no murmur Lungs: Bilateral rhonchi, no accessory muscle use, supplemental oxygen Abdominal: Soft, nontender to palpation, no guarding, no appreciable organomegaly Ext: Upper and lower extremity contractures, 2+ bilateral lower extremity edema Neuro: Nonverbal, spontaneously opening eyes Psych: Somnolent Data Reviewed Today: Pertinent Labs: WBC 13.1, hemoglobin 10.3, creatinine 0.74, blood sugars range between 1 34-1 75 Imaging: Chest x-ray independently interpreted from this morning, left lower lobe interstitial opacities Assessment and Plan: Active: Septic shock Bacterial pneumonia Strep bacteremia Acute hypoxic respiratory failure Acute metabolic encephalopathy Hypothermia Leukocytosis Hypernatremia - ICU following, weaning pressors, currently on dopamine drip - on D5W 100 cc/hr - concern for possible adrenal crisis as well, on solu-cortef 100 IV q12hr - Repeat blood cultures, discussed with ID, patient started on IV ceftriaxone 2 g every 24 hours as well as Flagyl 500 IV every 8 hours - echo pending Epilepsy -On Dilantin 100 mg IV every 8 hours, valproic acid 500 IV every 6 hours - per report, mental status at baseline other than lethargy -Neurology following, EEG pending Bradycardia, resolved -Echo pending, cardiology following Chronic: Cognitive impairment Hypothyroidism BPH DVT ppx: Lovenox Code status: No code Anticipated discharge place: Pending clinical course Anticipated discharge time: Pending clinical course Objective - Vital Signs Vital signs: Vital Signs Temp 97.7 F 08/27/24 08:00 Pulse 53 L 08/27/24 11:00 Resp 15 08/27/24 11:00 BP 116/39 08/26/24 21:30 Pulse Ox 100 08/27/24 11:00 FiO2 100 08/26/24 19:44 Intake & Output 08/26/24 08/27/24 08/27/24 18:59 06:59 18:59 Intake Total 6588.556 8413.265 973.038 Output Total 215 910 320 Balance 7471.512 1931.265 653.038 Weight 71.6 kg 81.4 kg 81.4 kg Intake: IV 293 2136 525 .9NS Pressure Bag 33 36 15 0.9 KVO 100 10 Cefepime 2 gm In Sodium 100 Chloride 0.9% 100 ml @ 25 mls/hr IVPB Q8HR [facility] Rx# :[id number] Dextrose 5% in Water 1, 1100 500 000 ml @ 100 mls/hr IV . Q10H [facility] Rx#:[id number] Sodium Chloride 0.9% 1, 260 000 ml @ 130 mls/hr IV . Q7H42M [facility] Rx#:[id number] Valproate Sodium 500 mg 200 In Sodium Chloride 0.9% 100 ml @ 100 mls/hr IVPB Q6HR [facility] Rx#:[id number] Vancomycin 1,250 mg In 500 Sodium Chloride 0.9% 250 ml @ 125 mls/hr IVPB Q8H [facility] Rx#:[id number] metroNIDAZOLE-NS PMX 500 100 mg In Saline 1 100ml.bag @ 100 mls/hr IVPB Q8HR [facility] Rx#:[id number] Intake, IV Titration 1638.349 154.265 448.038 Amount ACETAMINOPHEN IV (For NPO 100 ) 1,000 mg In Empty Bag 1 bag @ 400 mls/hr IVPB ONCE ONE Rx#:[id number] Cefepime 2 gm In Sodium 100 Chloride 0.9% 100 ml @ 25 mls/hr IVPB Q8HR [facility] Rx# :[id number] DOPamine DRIP 800 mg In 96.750 Dextrose/Water 1 250ml. bag @ 1 MCG/KG/MIN 1.343 mls/hr IV .Q24H [facility] Rx#: [id number] DOPamine DRIP 800 mg In 218.584 Dextrose/Water 1 250ml. bag @ 5 MCG/KG/MIN 7.654 mls/hr IV .Q24H ONE Rx#: [id number] Dextrose 5% in Water 1, 599 100 000 ml @ 100 mls/hr IV . Q10H [facility] Rx#:[id number] Norepinephrine 32 mg In 70.765 54.265 1.288 Sodium Chloride 0.9% 218 ml @ 0.05 MCG/KG/MIN 1. 914 mls/hr IV .Q24H [facility] Rx#:[id number] Piperacillin-Tazobactam 3 100 .375 gm In Sodium Chloride 0.9% 100 ml @ 25 mls/hr IVPB Q8H [facility] Rx#: [id number] Potassium Chloride 10 meq 100 In Water For Injection 1 100ml.bag @ 100 mls/hr IVPB Q1H [facility] Rx#: [id number] Valproate Sodium 500 mg 100 100 In Sodium Chloride 0.9% 100 ml @ 100 mls/hr IVPB Q6HR [facility] Rx#:[id number] Vancomycin 1,250 mg In 250 Sodium Chloride 0.9% 250 ml @ 125 mls/hr IVPB Q8H [facility] Rx#:[id number] cefTRIAXone 2 gm In 50 Sodium Chloride 0.9% 50 ml @ 100 mls/hr IVPB Q24HR [facility] Rx#:[id number] metroNIDAZOLE-NS PMX 500 100 100 mg In Saline 1 100ml.bag @ 100 mls/hr IVPB Q8HR [facility] Rx#:[id number] Output: Gastric Drainage 150 Urine 215 760 320 Other: Voiding Method Indwelling Catheter Indwelling Catheter ABP, PAP, CO, CI - Last Documented Arterial Blood Pressure 136/52 - Labs CBC & Chem 7: 08/27/24 05:00 08/27/24 05:00 Labs: Abnormal Lab Results - Last 24 Hours (Table) 08/26/24 08/26/24 08/27/24 Range/Units 01:00 18:47 00:45 WBC (3.8-10.6) k/uL RBC (4.30-5.90) m/uL Hgb (13.0-17.5) gm/dL Hct (39.0-53.0) % MCHC (31.0-37.0) g/dL Neutrophils # (1.3-7.7) k/uL Chloride (98-107) mmol/L BUN (9-20) mg/dL Glucose (74-99) mg/dL POC Glucose (mg/dL) 142 H 175 H (70-110) mg/dL Calcium (8.4-10.2) mg/dL Iron 43 L (65-175) UG/DL % Saturation 11.94 L (15.00-50.00) Alkaline Phosphatase (38-126) U/L Total Protein (6.3-8.2) g/dL Albumin (3.5-5.0) g/dL Vitamin B12 1896.0 H (200.0-944.0) pg/mL 08/27/24 08/27/24 08/27/24 Range/Units 05:00 05:00 06:02 WBC 13.1 H (3.8-10.6) k/uL RBC 3.52 L (4.30-5.90) m/uL Hgb 10.3 L (13.0-17.5) gm/dL Hct 34.3 L (39.0-53.0) % MCHC 29.9 L (31.0-37.0) g/dL Neutrophils # 11.0 H (1.3-7.7) k/uL Chloride 115 H (98-107) mmol/L BUN 34 H (9-20) mg/dL Glucose 152 H (74-99) mg/dL POC Glucose (mg/dL) 134 H (70-110) mg/dL Calcium 7.7 L (8.4-10.2) mg/dL Iron (65-175) UG/DL % Saturation (15.00-50.00) Alkaline Phosphatase 173 H (38-126) U/L Total Protein 5.8 L (6.3-8.2) g/dL Albumin 2.5 L (3.5-5.0) g/dL Vitamin B12 (200.0-944.0) pg/mL Microbiology - Last 24 Hours (Table) 08/26/24 01:24 Urine Culture - Final Urine,Catheterized Strep agalactiae - (group b) 08/25/24 22:43 Blood Culture Gram Stain - Preliminary Blood Blood Culture - Preliminary Strep A Molecular ID
--- NOTE | 2024-08-27 13:07 | P.PN ---
Subjective Progress Note Date: 08/27/24 Principal diagnosis: Mental status changes, sepsis, bradycardia. This is a 74-year-old white male with history of cognitive impairment, mentally challenged, known history of multiple medical problems including seizure disorder, patient is bedbound, has flexion contractures, patient resides at an adult foster nursing home. Presented to the ER last night with altered mental status as documented by the ER physician and as noted by the extended-care facility staff. Apparently has not been eating, and upon his initial evaluation in the ER, patient was noted to be hypothermic with a temp of 84. Patient was hypotensive, bradycardic, his cardiac rate was in the 20s. Patient was not responsive to any stimuli, but according to the ER physician he was able to protect his airways, and did not seem to be in respiratory distress. Did not require intubation or mechanical ventilation. However patient required placement on dopamine for his bradycardia, and he was also placed on norepinephrine at the same time. Transferred to the ICU on dopamine at 12 mcg/kg/min norepinephrine at 0.08 mcg/kg/min patient received IV fluids and he had external warming performed, and I saw him today his temperature is 95. Patient remains on a nonrebreather mask/15 L flow, his ABG today showed a pO2 of 52 pCO2 43 pH of 7.37. Again his temp is up to 95. Sodium was noted to be elevated and he is now on D5W at 100 cc/h. The patient himself is nonverbal, and does not follow any instructions. His labs today show WBC count is 14.1 hemoglobin 12.1, sodium was noted to be 151 BUN is 45 creatinine 0.57 his IV fluid was changed from 0.9 normal saline to D5W. Liver enzymes were noted to be a bit elevated lipase was 1661. And alkaline phosphatase was 211, drug screen was positive only for barbiturates. Otherwise negative drug screen. Phenytoin level was therapeutic 14.7 valproic acid was subtherapeutic at 40.6. Progress note dated August 27, 2024. This is a 74-year-old male who was admitted to the hospital on August 25, 2024, with mental status changes, bradycardia, and sepsis. Initially his heart rate was only 24 bpm. He is seen today in room 255. He continues on 4 L nasal can nula. He has an NG tube in place. The patient continues on D5W at 100 cc an hour, and dopamine at 8 mcg/kg/min. The patient was found to have streptococci, both in blood and urine. He continues on Rocephin and Flagyl. His overall prognosis remains poor. White count 13.1, hemoglobin 10.3, macro 34.3, platelet count 166,000. Sodium 145, potassium 3.7, chlorides 115, CO2 22, BUN 34, creatinine 0.74. Glucose 134. Albumin is 2.5. Calcium is 7.7. The patient had group be strep in his urine, and group A strep, and his blood. Chest x-ray shows a patchy infiltrate, in the left lower lobe. Objective - Vital Signs Vital signs: Vital Signs Temp 97.7 F 08/27/24 08:00 Pulse 53 L 08/27/24 11:00 Resp 15 08/27/24 11:00 BP 116/39 08/26/24 21:30 Pulse Ox 100 08/27/24 11:00 FiO2 100 08/26/24 19:44 Intake & Output 08/26/24 08/27/24 08/27/24 18:59 06:59 18:59 Intake Total 3048.401 4984.265 976.484 Output Total 215 910 320 Balance 4020.492 0609.265 656.484 Weight 71.6 kg 81.4 kg 81.4 kg Intake: IV 293 2136 525 .9NS Pressure Bag 33 36 15 0.9 KVO 100 10 Cefepime 2 gm In Sodium 100 Chloride 0.9% 100 ml @ 25 mls/hr IVPB Q8HR [facility] Rx# :[id number] Dextrose 5% in Water 1, 1100 500 000 ml @ 100 mls/hr IV . Q10H [facility] Rx#:[id number] Sodium Chloride 0.9% 1, 260 000 ml @ 130 mls/hr IV . Q7H42M [facility] Rx#:[id number] Valproate Sodium 500 mg 200 In Sodium Chloride 0.9% 100 ml @ 100 mls/hr IVPB Q6HR [facility] Rx#:[id number] Vancomycin 1,250 mg In 500 Sodium Chloride 0.9% 250 ml @ 125 mls/hr IVPB Q8H [facility] Rx#:[id number] metroNIDAZOLE-NS PMX 500 100 mg In Saline 1 100ml.bag @ 100 mls/hr IVPB Q8HR [facility] Rx#:[id number] Intake, IV Titration 1638.349 154.265 451.484 Amount ACETAMINOPHEN IV (For NPO 100 ) 1,000 mg In Empty Bag 1 bag @ 400 mls/hr IVPB ONCE ONE Rx#:[id number] Cefepime 2 gm In Sodium 100 Chloride 0.9% 100 ml @ 25 mls/hr IVPB Q8HR [facility] Rx# :[id number] DOPamine DRIP 800 mg In 100.196 Dextrose/Water 1 250ml. bag @ 1 MCG/KG/MIN 1.343 mls/hr IV .Q24H [facility] Rx#: [id number] DOPamine DRIP 800 mg In 218.584 Dextrose/Water 1 250ml. bag @ 5 MCG/KG/MIN 7.654 mls/hr IV .Q24H [facility] Rx#: [id number] Dextrose 5% in Water 1, 599 100 000 ml @ 100 mls/hr IV . Q10H [facility] Rx#:[id number] Norepinephrine 32 mg In 70.765 54.265 1.288 Sodium Chloride 0.9% 218 ml @ 0.05 MCG/KG/MIN 1. 914 mls/hr IV .Q24H [facility] Rx#:[id number] Piperacillin-Tazobactam 3 100 .375 gm In Sodium Chloride 0.9% 100 ml @ 25 mls/hr IVPB Q8H [facility] Rx#: [id number] Potassium Chloride 10 meq 100 In Water For Injection 1 100ml.bag @ 100 mls/hr IVPB Q1H [facility] Rx#: [id number] Valproate Sodium 500 mg 100 100 In Sodium Chloride 0.9% 100 ml @ 100 mls/hr IVPB Q6HR [facility] Rx#:[id number] Vancomycin 1,250 mg In 250 Sodium Chloride 0.9% 250 ml @ 125 mls/hr IVPB Q8H [facility] Rx#:[id number] cefTRIAXone 2 gm In 50 Sodium Chloride 0.9% 50 ml @ 100 mls/hr IVPB Q24HR [facility] Rx#:[id number] metroNIDAZOLE-NS PMX 500 100 100 mg In Saline 1 100ml.bag @ 100 mls/hr IVPB Q8HR [facility] Rx#:[id number] Output: Gastric Drainage 150 Urine 215 760 320 Other: Voiding Method Indwelling Catheter Indwelling Catheter ABP, PAP, CO, CI - Last Documented Arterial Blood Pressure 136/52 - Exam No acute distress, very lethargic, and poorly responsive. Nasal O2 was noted, as well as an NG tube. HEENT examination is grossly unremarkable. Mucous membranes are moist. No oral lesions. Neck supple. Full range of motion. No adenopathy thyromegaly or neck vein distention. Cardiovascular examination reveals regular rhythm rate. S1-S2 normal. No S3 or S4. No discernible murmur noted. Heart sounds are distant. Lungs reveal scattered bilateral rhonchi. No wheezes. No crackles. Breath sounds are equal bilaterally. Abdomen soft bowel sounds are heard. No masses or tenderness. Extremities are intact. No cyanosis clubbing or edema. Skin is without rash or lesion. Neurologic examination is very difficult to evaluate at this time. - Labs CBC & Chem 7: 08/27/24 05:00 08/27/24 05:00 Labs: Abnormal Lab Results - Last 24 Hours (Table) 08/26/24 08/26/24 08/27/24 Range/Units 01:00 18:47 00:45 WBC (3.8-10.6) k/uL RBC (4.30-5.90) m/uL Hgb (13.0-17.5) gm/dL Hct (39.0-53.0) % MCHC (31.0-37.0) g/dL Neutrophils # (1.3-7.7) k/uL Chloride (98-107) mmol/L BUN (9-20) mg/dL Glucose (74-99) mg/dL POC Glucose (mg/dL) 142 H 175 H (70-110) mg/dL Calcium (8.4-10.2) mg/dL Iron 43 L (65-175) UG/DL % Saturation 11.94 L (15.00-50.00) Alkaline Phosphatase (38-126) U/L Total Protein (6.3-8.2) g/dL Albumin (3.5-5.0) g/dL Vitamin B12 1896.0 H (200.0-944.0) pg/mL 08/27/24 08/27/24 08/27/24 Range/Units 05:00 05:00 06:02 WBC 13.1 H (3.8-10.6) k/uL RBC 3.52 L (4.30-5.90) m/uL Hgb 10.3 L (13.0-17.5) gm/dL Hct 34.3 L (39.0-53.0) % MCHC 29.9 L (31.0-37.0) g/dL Neutrophils # 11.0 H (1.3-7.7) k/uL Chloride 115 H (98-107) mmol/L BUN 34 H (9-20) mg/dL Glucose 152 H (74-99) mg/dL POC Glucose (mg/dL) 134 H (70-110) mg/dL Calcium 7.7 L (8.4-10.2) mg/dL Iron (65-175) UG/DL % Saturation (15.00-50.00) Alkaline Phosphatase 173 H (38-126) U/L Total Protein 5.8 L (6.3-8.2) g/dL Albumin 2.5 L (3.5-5.0) g/dL Vitamin B12 (200.0-944.0) pg/mL Microbiology - Last 24 Hours (Table) 08/26/24 01:24 Urine Culture - Final Urine,Catheterized Strep agalactiae - (group b) 08/25/24 22:43 Blood Culture Gram Stain - Preliminary Blood Blood Culture - Preliminary Strep A Molecular ID Assessment and Plan Assessment: Acute mental status changes, likely multifactorial, in part related to sepsis, hypothermia, and hypothyroidism. Streptococcal bacteremia. Streptococcal urinary tract infection. Hypothyroidism. Hypovolemic hyponatremia. History of seizure disorder. Acute metabolic encephalopathy. History of cognitive impairment. Acute hypoxemic respiratory failure secondary to aspiration pneumonia. Plan: Plan dated August 27, 2024. The patient is seen today in room 255. The patient's overall prognosis remains poor. He continues on dopamine at 8 mcg/kg/min. The patient is also on D5W at 100 cc an hour. He has an NG tube in place. Will talk to the family about a feeding tube. He is getting oxygen by nasal cannula at 4 L. He was admitted on August 25, 2024. He was found to have streptococcal bacteremia and streptococcal urinary tract infection. He remains on Rocephin and Flagyl. All labs, x-rays, and medications are reviewed. The patient's overall prognosis remains poor. We will continue to follow make recommendations. Dictation was produced using [employer] software. Please excuse any grammatical, word or spelling errors. Time with Patient: Greater than 30
--- NOTE | 2024-08-27 15:07 | P.PN ---
Subjective Progress Note Date: 08/27/24 History of present illness: Patient is a pleasant 74-year-old male with significant past medical history of cognitive impairment currently residing in an adult foster center, seizure, hypothyroidism who presented via EMS with altered mental status. Patient is currently unresponsive and unable to answer questions. Sister at bedside able to provide some history. She reports family history of mother having CABG in her 50s. She reports that caregiver noticed that he was coughing for the past couple days and apparently had a chest x-ray at the facility. Patient was then noted to not be eating and normally eats very well. He was then less responsive and EMS was called. EKG in the emergency room showed sinus bradycardia with a heart rate of 27 bpm, no heart block. His core temp was 85.8 F with blood pressure 44/33. Chest x-ray shows bibasilar opacities he was hypotensive and started on a dopamine and Levophed drip. Head CT with no acute findings however shows extensive encephalomalacia. Kidney ultrasound was done and shows no hydrocephalus. He has apparently mostly nonverbal at baseline. Labs reviewed: WBC 14.1, hemoglobin 12.1, sodium 151, potassium 4.0, creatinine 0.57, TSH 7.3, troponin negative x 1, BNP 305. RN reports attempting to wean dopamine however blood pressure did not tolerate and had to go up again. Sister reports no history of syncope and patient has been wheelchair-bound for the past 2 years. Progress note 08/27/2024 Patient seen and examined at bedside this a.m. Patient is currently maintained on IV phenytoin and IV dopamine drip. His heart rate while resting is in mid 50s with no overnight pauses noticed. His EKG does not show any AV nehemias blocks or any's concerns of sick sinus syndrome. Bradycardia appears to be related to hypothermia which is related to possible sepsis. TSH is 7 however T4 is normal. PHYSICAL EXAMINATION: This is a 74-year-old male in no apparent distress at the time of my examination. HEENT: Head is atraumatic, normocephalic. Mucous membranes of the mouth are moist. Neck is supple. There is no jugular venous distention. CHEST EXAMINATION: Lungs with rhonchi. On nonrebreather face mask. No chest wall tenderness is noted on palpation or with deep breathing. HEART EXAMINATION: Heart regular rate and rhythm. S1, S2 heard. No murmurs, gallops or rub. ABDOMEN: Soft, nontender. Bowel sounds are heard. EXTREMITIES: 2+ peripheral pulses, evidence of +1 peripheral edema. NEUROLOGIC EXAMINATION: Patient is drowsy, responds to voice but not currently opening eyes. IMPRESSION AND PLAN: Bradycardia, improved Bradycardia most likely related to hypothermia which is related to possible sepsis Cognitive impairment History of seizures Altered mental status Hypotension Hypothermia Hypernatremia Leukocytosis Likely septic shock PLAN: Avoid all AV nehemias blocking agents Obtain echocardiogram Titrate down dopamine drip I had a detailed discussion about patient's goals of care with the patient's guardian. She would like patient to be DNR/DNI. Objective - Vital Signs Vital signs: Vital Signs Temp 97.7 F 08/27/24 08:00 Pulse 50 L 08/27/24 14:05 Resp 14 08/27/24 14:05 BP 116/39 08/26/24 21:30 Pulse Ox 96 08/27/24 14:05 FiO2 100 08/26/24 19:44 Intake & Output 08/26/24 08/27/24 08/27/24 18:59 06:59 18:59 Intake Total 9244.486 0322.265 1085.484 Output Total 215 910 510 Balance 5195.731 6690.265 575.484 Weight 71.6 kg 81.4 kg 81.4 kg Intake: IV 293 2136 534 .9NS Pressure Bag 33 36 24 0.9 KVO 100 10 Cefepime 2 gm In Sodium 100 Chloride 0.9% 100 ml @ 25 mls/hr IVPB Q8HR [facility] Rx# :[id number] Dextrose 5% in Water 1, 1100 500 000 ml @ 100 mls/hr IV . Q10H [facility] Rx#:[id number] Sodium Chloride 0.9% 1, 260 000 ml @ 130 mls/hr IV . Q7H42M [facility] Rx#:[id number] Valproate Sodium 500 mg 200 In Sodium Chloride 0.9% 100 ml @ 100 mls/hr IVPB Q6HR [facility] Rx#:[id number] Vancomycin 1,250 mg In 500 Sodium Chloride 0.9% 250 ml @ 125 mls/hr IVPB Q8H [facility] Rx#:[id number] metroNIDAZOLE-NS PMX 500 100 mg In Saline 1 100ml.bag @ 100 mls/hr IVPB Q8HR [facility] Rx#:[id number] Intake, IV Titration 1638.349 154.265 551.484 Amount ACETAMINOPHEN IV (For NPO 100 ) 1,000 mg In Empty Bag 1 bag @ 400 mls/hr IVPB ONCE ONE Rx#:[id number] Cefepime 2 gm In Sodium 100 Chloride 0.9% 100 ml @ 25 mls/hr IVPB Q8HR [facility] Rx# :[id number] DOPamine DRIP 800 mg In 100.196 Dextrose/Water 1 250ml. bag @ 1 MCG/KG/MIN 1.343 mls/hr IV .Q24H [facility] Rx#: [id number] DOPamine DRIP 800 mg In 218.584 Dextrose/Water 1 250ml. bag @ 5 MCG/KG/MIN 7.654 mls/hr IV .Q24H [facility] Rx#: [id number] Dextrose 5% in Water 1, 599 100 000 ml @ 100 mls/hr IV . Q10H [facility] Rx#:[id number] Norepinephrine 32 mg In 70.765 54.265 1.288 Sodium Chloride 0.9% 218 ml @ 0.05 MCG/KG/MIN 1. 914 mls/hr IV .Q24H [facility] Rx#:[id number] Piperacillin-Tazobactam 3 100 .375 gm In Sodium Chloride 0.9% 100 ml @ 25 mls/hr IVPB Q8H [facility] Rx#: [id number] Potassium Chloride 10 meq 200 In Water For Injection 1 100ml.bag @ 100 mls/hr IVPB Q1H [facility] Rx#: [id number] Valproate Sodium 500 mg 100 100 In Sodium Chloride 0.9% 100 ml @ 100 mls/hr IVPB Q6HR [facility] Rx#:[id number] Vancomycin 1,250 mg In 250 Sodium Chloride 0.9% 250 ml @ 125 mls/hr IVPB Q8H [facility] Rx#:[id number] cefTRIAXone 2 gm In 50 Sodium Chloride 0.9% 50 ml @ 100 mls/hr IVPB Q24HR [facility] Rx#:[id number] metroNIDAZOLE-NS PMX 500 100 100 mg In Saline 1 100ml.bag @ 100 mls/hr IVPB Q8HR [facility] Rx#:[id number] Output: Gastric Drainage 150 Urine 215 760 510 Other: Voiding Method Indwelling Catheter Indwelling Catheter Indwelling Catheter ABP, PAP, CO, CI - Last Documented Arterial Blood Pressure 176/68 - Labs CBC & Chem 7: 08/27/24 05:00 08/27/24 05:00 Labs: Abnormal Lab Results - Last 24 Hours (Table) 08/26/24 08/27/24 08/27/24 Range/Units 18:47 00:45 05:00 WBC 13.1 H (3.8-10.6) k/uL RBC 3.52 L (4.30-5.90) m/uL Hgb 10.3 L (13.0-17.5) gm/dL Hct 34.3 L (39.0-53.0) % MCHC 29.9 L (31.0-37.0) g/dL Neutrophils # 11.0 H (1.3-7.7) k/uL Chloride (98-107) mmol/L BUN (9-20) mg/dL Glucose (74-99) mg/dL POC Glucose (mg/dL) 142 H 175 H (70-110) mg/dL Calcium (8.4-10.2) mg/dL Alkaline Phosphatase (38-126) U/L Total Protein (6.3-8.2) g/dL Albumin (3.5-5.0) g/dL 08/27/24 08/27/24 Range/Units 05:00 06:02 WBC (3.8-10.6) k/uL RBC (4.30-5.90) m/uL Hgb (13.0-17.5) gm/dL Hct (39.0-53.0) % MCHC (31.0-37.0) g/dL Neutrophils # (1.3-7.7) k/uL Chloride 115 H (98-107) mmol/L BUN 34 H (9-20) mg/dL Glucose 152 H (74-99) mg/dL POC Glucose (mg/dL) 134 H (70-110) mg/dL Calcium 7.7 L (8.4-10.2) mg/dL Alkaline Phosphatase 173 H (38-126) U/L Total Protein 5.8 L (6.3-8.2) g/dL Albumin 2.5 L (3.5-5.0) g/dL Microbiology - Last 24 Hours (Table) 08/26/24 01:24 Urine Culture - Final Urine,Catheterized Strep agalactiae - (group b) 08/25/24 22:43 Blood Culture Gram Stain - Preliminary Blood Blood Culture - Preliminary Strep A Molecular ID
--- NOTE | 2024-08-27 17:49 | CA ---
Transthoracic Echo Report Name: Ferny Smith Age: 74 Gender: M : 1950 Exam Date: 08/27/2024 14:14 Exam Location: [place] [facility] Ht (in): 70 Wt (lb): 157 Ordering Physician: Alireza Segal MD Attending/Referring Phys: [id number], [facility] Supervisor Ángela Magallanes, HARITHA Procedure CPT: Indications: shock Cardiac Hx: Technical Quality: Fair Contrast 1: Total Dose (mL): Contrast 2: Total Dose (mL): MEASUREMENTS (Male / Female) Normal Values 2D ECHO LV Diastolic Diameter PLAX 4.1 cm 4.2 - 5.9 / 3.9 - 5.3 cm LV Systolic Diameter PLAX 2.6 cm IVS Diastolic Thickness 1.2 cm 0.6 - 1.0 / 0.6 - 0.9 cm LVPW Diastolic Thickness 1.2 cm 0.6 - 1.0 / 0.6 - 0.9 cm LV Relative Wall Thickness 0.6 RV Internal Dim ED PLAX 1.6 cm LA Systolic Diameter LX 4.3 cm 3.0 - 4.0 / 2.7 - 3.8 cm LV Diastolic Volume MOD BP 37.2 cm??? 67 - 155 / 56 - 104 cm??? LV Systolic Volume MOD BP 11.9 cm??? 22 - 58 / 19 - 49 cm??? LV Ejection Fraction MOD BP 67.9 % >= 55 % LV Cardiac Index MOD BP 794.0 cm???/min???m??? LV Diastolic Volume MOD 4C 37.9 cm??? LV Systolic Volume MOD 4C 16.4 cm??? LV Ejection Fraction MOD 4C 56.8 % LV Cardiac Index MOD 4C 676.8 cm???/min???m??? LV Diastolic Length 4C 6.1 cm LV Systolic Length 4C 5.7 cm LV Diastolic Volume MOD 2C 35.4 cm??? LV Systolic Volume MOD 2C 8.9 cm??? LV Ejection Fraction MOD 2C 74.8 % LV Cardiac Index MOD 2C 834.4 cm???/min???m??? LV Diastolic Length 2C 5.9 cm LV Systolic Length 2C 5.6 cm LA Volume 44.8 cm??? 18 - 58 / 22 - 52 cm??? LA Volume Index 23.9 cm???/m??? 16 - 28 cm???/m??? M-MODE Aortic Root Diameter MM 3.8 cm LA Systolic Diameter MM 4.8 cm LA Ao Ratio MM 1.3 AV Cusp Separation MM 2.1 cm DOPPLER AI Peak Velocity 213.8 cm/s AI Peak Gradient 18.3 mmHg AI Pressure Half Time 1526.9 ms MV Area PHT 1.7 cm??? Mitral E Point Velocity 69.1 cm/s Mitral A Point Velocity 95.5 cm/s Mitral E to A Ratio 0.7 MV Deceleration Time 439.9 ms FINDINGS Left Ventricle Left ventricular ejection fraction is estimated at 55-60%. Normal left ventricular systolic function with no obvious regional wall motion abnormalities. Left ventricular cavity size normal. Mildly increased left ventricular wall thickness. Right Ventricle Normal right ventricular size and function. Right ventricular systolic pressure within normal limits. Right Atrium Normal right atrial size. Left Atrium Mildly increased left atrial diameter. Mitral Valve Structurally normal mitral valve. Mild mitral regurgitation. No mitral stenosis.mild mitral annular calcification. Aortic Valve Trileaflet aortic valve. Mild aortic regurgitation. No aortic stenosis.aortic valve sclerosis. Tricuspid Valve Structurally normal tricuspid valve. Trace to mild tricuspid regurgitation. No tricuspid stenosis. Pulmonic Valve Pulmonic valve not well visualized. Pericardium No pericardial or pleural effusion. Aorta Normal size aortic root and proximal ascending aorta. CONCLUSIONS Technically difficult study. Normal ventricle size and systolic function Mild mitral and aortic regurgitation Previewed by: Dr. Danyel Nuñez MD (Electronically Signed) Final Date: 27 August 2024 17:48
[2024-08-27 18:13] LABS: Glucose,Whole Blood 151 mg/dL (70-110)
--- NOTE | 2024-08-27 21:30 | P.CONS ---
History of Present Illness - Reason for Consult Consult date: 08/27/24 Bacteremia Requesting physician: Alireza Segal - Chief Complaint Decreased level of responsiveness and weakness x 1 day on admission - History of Present Illness Patient is a 74-year-old male with a past medical history significant for seizure disorder cognitive impairment hypothyroidism resident of the [facility] has been brought to the hospital for evaluation of mental status changes apparently the patient did not eat his dinner and the patient was noticed to be less responsive different from his baseline for the patient has been brought into the hospital on arrival of the patient to the ER he was noted to be hypothermic with a temperature of 87.6 degrees for night patient was bradycardic with a heart rate of 29 requiring pressors and dopamine patient was also hypoxic requiring supplemental oxygen patient workup including white count of 15,000 with a left shift BUN is mildly elevated but creatinine is normal liver enzymes are normal patient did have a positive UA with large leukocyte esterase 20 WBC influenza RSV COVID testing was negative blood cultures came positive with strep today urine is growing strep to be chest x-ray reduced lung volumes with bronchovascular crowding right greater than the left basilar opacity concerning for pneumonia he also have an echocardiogram did not mention any significant abnormalities except mild mitral and aortic regurgitation patient currently on Rocephin 2 g daily infectious was consulted because of his bacteremia most information has been obtained from review the chart and talking the family bedside and the patient cannot provide any history Review of Systems Positive points has been mentioned in HPI complete review could not be obtained because of his underlying mental status 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, Rt ankle fracture 2 years ago, nonverbal, seizure disorder History of Any Multi-Drug Resistant Organisms: None Reported Past Surgical History: No Surgical Hx Reported Past Psychological History: No Psychological Hx Reported Smoking Status: Never smoker Past Alcohol Use History: None Reported Past Drug Use History: None Reported Medications and Allergies Home Medications Medication Instructions Recorded Confirmed Type Acetaminophen [Tylenol] 325 mg PO Q4H PRN 03/19/14 08/26/24 History Aspirin 81 mg PO DAILY 03/19/14 08/26/24 History Chlorhexidine Gluconate [Peridex] 15 ml PO BID 03/19/14 08/26/24 History Phenytoin Sodium Extended 100 mg PO TID 03/19/14 08/26/24 History [Dilantin] Propranolol HCl [Propranolol HCl 60 mg PO DAILY 03/19/14 08/26/24 History ER] Tamsulosin [Flomax] 0.4 mg PO DAILY 03/19/14 08/26/24 History Divalproex ER [Depakote ER] 1,000 mg PO BID 08/26/24 08/26/24 History Furosemide [Lasix] 20 mg PO DAILY 08/26/24 08/26/24 History Levothyroxine Sodium [Synthroid] 25 mcg PO DAILY 08/26/24 08/26/24 History Menthol-Zinc Oxide Oint 1 applic TOPICAL DAILY PRN 08/26/24 08/26/24 History [Calmoseptine Ointment] Multivitamins, Thera [Multivitamin 1 tab PO DAILY 08/26/24 08/26/24 History (formulary)] Potassium Chloride ER [K-Dur 10] 10 meq PO DAILY 08/26/24 08/26/24 History guaiFENesin SYRUP 100MG/5ML 200 mg PO Q4H 08/26/24 08/26/24 History [Robitussin] Allergies Allergy/AdvReac Type Severity Reaction Status Date / Time No Known Allergies Allergy Verified 08/26/24 12:16 Physical Exam Vitals: Vital Signs Temp Pulse Resp BP Pulse Ox FiO2 08/27/24 11:00 53 L 15 100 08/27/24 10:45 56 L 14 98 08/27/24 10:30 56 L 15 98 08/27/24 10:20 57 L 15 99 08/27/24 10:10 55 L 15 96 08/27/24 10:00 55 L 15 97 08/27/24 09:50 55 L 12 98 08/27/24 09:45 55 L 15 98 08/27/24 09:30 56 L 14 98 08/27/24 09:15 58 L 15 99 08/27/24 09:00 62 15 98 08/27/24 08:45 60 14 98 08/27/24 08:30 60 15 99 08/27/24 08:15 61 15 96 08/27/24 08:00 97.7 F 61 16 97 08/27/24 07:59 96 08/27/24 07:00 62 15 98 08/27/24 06:45 61 13 96 08/27/24 06:30 65 17 95 08/27/24 06:15 65 15 97 08/27/24 06:00 64 14 96 08/27/24 05:45 65 11 L 96 08/27/24 05:30 64 14 95 08/27/24 05:15 65 10 L 96 08/27/24 05:00 65 12 93 L 08/27/24 04:45 65 13 95 08/27/24 04:30 66 11 L 95 08/27/24 04:15 65 17 98 08/27/24 04:00 99.0 F 63 14 97 08/27/24 03:45 62 12 97 08/27/24 03:30 69 16 96 08/27/24 03:15 61 14 96 08/27/24 03:00 63 14 96 08/27/24 02:45 64 13 95 08/27/24 02:30 65 10 L 95 08/27/24 02:15 61 13 97 08/27/24 02:00 70 14 96 08/27/24 01:45 67 14 97 08/27/24 01:30 64 14 94 L 08/27/24 01:15 69 16 95 08/27/24 01:00 61 12 96 08/27/24 00:45 64 12 96 08/27/24 00:30 64 13 96 08/27/24 00:15 65 12 95 08/27/24 00:00 98.8 F 74 14 94 L 08/26/24 23:45 72 9 L 94 L 08/26/24 23:30 56 L 14 95 08/26/24 23:15 63 12 95 08/26/24 23:01 64 15 94 L 08/26/24 23:00 68 15 93 L 08/26/24 22:45 64 11 L 95 08/26/24 22:30 65 12 94 L 08/26/24 22:15 64 9 L 94 L 08/26/24 22:00 65 13 93 L 08/26/24 21:45 69 13 93 L 08/26/24 21:30 64 12 116/39 93 L 08/26/24 21:15 61 11 L 116/39 94 L 08/26/24 21:00 61 12 94 L 08/26/24 20:45 68 13 93 L 08/26/24 20:30 65 11 L 94 L 08/26/24 20:15 66 9 L 76/36 93 L 03/02/25 20:00 99.0 F 67 12 96 08/26/24 19:45 70 13 95 08/26/24 19:44 95 100 08/26/24 19:30 67 12 95/49 95 08/26/24 19:15 65 15 95 08/26/24 19:00 69 15 95 08/26/24 18:45 61 15 95 08/26/24 18:30 63 16 94 L 08/26/24 18:15 57 L 12 97/37 95 08/26/24 18:00 67 15 96 08/26/24 17:45 71 13 96 08/26/24 17:30 67 16 95 08/26/24 17:15 67 18 96 08/26/24 17:00 68 14 96 08/26/24 16:45 68 13 94 L 08/26/24 16:30 66 13 95 08/26/24 16:15 72 15 97 08/26/24 16:00 70 13 96 08/26/24 15:45 77 12 96 08/26/24 15:30 71 17 95 08/26/24 15:15 66 15 114/76 96 08/26/24 15:00 68 21 94 L 08/26/24 14:45 66 22 88/63 98 08/26/24 14:30 64 16 97 08/26/24 14:15 68 16 96 08/26/24 14:00 98.8 F 67 18 95 08/26/24 13:45 65 11 L 92 L 08/26/24 13:30 70 12 94 L 08/26/24 13:15 68 16 93 L 08/26/24 13:00 68 17 95 08/26/24 12:45 71 15 93 L 08/26/24 12:30 98.6 F 66 16 109/95 99 08/26/24 12:15 66 19 89/62 98 08/26/24 12:00 74 15 91/81 87 L 08/26/24 11:45 68 15 95 08/26/24 11:30 66 15 98 08/26/24 11:20 67 9 L 62/45 97 Intake and Output 08/26/24 08/27/24 08/27/24 22:59 06:59 14:59 Intake Total 3060.933 3909.917 948.157 Output Total 205 765 320 Balance 1248.827 813.917 628.157 Intake: IV 604 1544 525 .9NS Pressure Bag 24 24 15 0.9 KVO 30 70 10 Cefepime 2 gm In Sodium 100 Chloride 0.9% 100 ml @ 25 mls/hr IVPB Q8HR [facility] Rx# :[id number] Dextrose 5% in Water 1, 300 800 500 000 ml @ 100 mls/hr IV . Q10H [facility] Rx#:[id number] Valproate Sodium 500 mg 200 In Sodium Chloride 0.9% 100 ml @ 100 mls/hr IVPB Q6HR [facility] Rx#:[id number] Vancomycin 1,250 mg In 250 250 Sodium Chloride 0.9% 250 ml @ 125 mls/hr IVPB Q8H [facility] Rx#:[id number] metroNIDAZOLE-NS PMX 500 100 mg In Saline 1 100ml.bag @ 100 mls/hr IVPB Q8HR [facility] Rx#:[id number] Intake, IV Titration 849.827 34.917 423.157 Amount ACETAMINOPHEN IV (For NPO 100 ) 1,000 mg In Empty Bag 1 bag @ 400 mls/hr IVPB ONCE ONE Rx#:[id number] Cefepime 2 gm In Sodium 100 Chloride 0.9% 100 ml @ 25 mls/hr IVPB Q8HR [facility] Rx# :[id number] DOPamine DRIP 800 mg In 71.869 Dextrose/Water 1 250ml. bag @ 1 MCG/KG/MIN 1.343 mls/hr IV .Q24H [facility] Rx#: [id number] DOPamine DRIP 800 mg In 4.286 Dextrose/Water 1 250ml. bag @ 5 MCG/KG/MIN 7.654 mls/hr IV .Q24H ONE Rx#: [id number] Dextrose 5% in Water 1, 399 000 ml @ 100 mls/hr IV . Q10H [facility] Rx#:[id number] Norepinephrine 32 mg In 46.541 34.917 1.288 Sodium Chloride 0.9% 218 ml @ 0.05 MCG/KG/MIN 1. 914 mls/hr IV .Q24H [facility] Rx#:[id number] Potassium Chloride 10 meq 100 In Water For Injection 1 100ml.bag @ 100 mls/hr IVPB Q1H [facility] Rx#: [id number] Valproate Sodium 500 mg 100 100 In Sodium Chloride 0.9% 100 ml @ 100 mls/hr IVPB Q6HR [facility] Rx#:[id number] cefTRIAXone 2 gm In 50 Sodium Chloride 0.9% 50 ml @ 100 mls/hr IVPB Q24HR [facility] Rx#:[id number] metroNIDAZOLE-NS PMX 500 100 100 mg In Saline 1 100ml.bag @ 100 mls/hr IVPB Q8HR [facility] Rx#:[id number] Output: Gastric Drainage 150 Urine 205 615 320 Other: Voiding Method Indwelling Catheter Indwelling Catheter Weight 81.4 kg ABP, PAP, CO, CI - Last 8 Hours Arterial Blood Pressure 136/52 Arterial Blood Pressure 125/50 Arterial Blood Pressure 123/45 Arterial Blood Pressure 129/47 Arterial Blood Pressure 126/46 Arterial Blood Pressure 119/45 Arterial Blood Pressure 116/45 Arterial Blood Pressure 114/44 Arterial Blood Pressure 114/43 Arterial Blood Pressure 120/45 Arterial Blood Pressure 123/49 Arterial Blood Pressure 130/48 Arterial Blood Pressure 133/50 Arterial Blood Pressure 149/53 Arterial Blood Pressure 138/49 Arterial Blood Pressure 140/52 Arterial Blood Pressure 143/50 Arterial Blood Pressure 135/34 Arterial Blood Pressure 140/50 Arterial Blood Pressure 140/52 Arterial Blood Pressure 148/51 Arterial Blood Pressure 147/54 Arterial Blood Pressure 138/50 Arterial Blood Pressure 142/52 Arterial Blood Pressure 137/50 Arterial Blood Pressure 141/50 Arterial Blood Pressure 142/49 Arterial Blood Pressure 144/51 Arterial Blood Pressure 149/55 GENERAL DESCRIPTION: Elderly male lying in bed, no distress. No tachypnea or accessory muscle of respiration use. HEENT: Shows Pallor , no scleral icterus. Oral mucous membrane is dry. NECK: Trachea central, no thyromegaly. LUNGS: Unlabored breathing. Coarse breath sound bilaterally HEART: S1, S2, regular rate and rhythm. No loud murmur ABDOMEN: Soft, no tenderness , guarding or rigidity, no organomegaly EXTREMITIES: No edema of feet. SKIN: No rash, no masses palpable. NEUROLOGICAL: The patient is lethargic orientation could not be determined Results CBC & Chem 7: 08/30/24 05:05 08/30/24 05:05 Labs: Abnormal Lab Results - Last 24 Hours (Table) 08/26/24 08/26/24 08/26/24 Range/Units 01:00 11:21 18:47 WBC (3.8-10.6) k/uL RBC (4.30-5.90) m/uL Hgb (13.0-17.5) gm/dL Hct (39.0-53.0) % MCHC (31.0-37.0) g/dL Neutrophils # (1.3-7.7) k/uL Chloride (98-107) mmol/L BUN (9-20) mg/dL Glucose (74-99) mg/dL POC Glucose (mg/dL) 130 H 142 H (70-110) mg/dL Calcium (8.4-10.2) mg/dL Iron 43 L (65-175) UG/DL % Saturation 11.94 L (15.00-50.00) Alkaline Phosphatase (38-126) U/L Total Protein (6.3-8.2) g/dL Albumin (3.5-5.0) g/dL Vitamin B12 1896.0 H (200.0-944.0) pg/mL 08/27/24 08/27/24 08/27/24 Range/Units 00:45 05:00 05:00 WBC 13.1 H (3.8-10.6) k/uL RBC 3.52 L (4.30-5.90) m/uL Hgb 10.3 L (13.0-17.5) gm/dL Hct 34.3 L (39.0-53.0) % MCHC 29.9 L (31.0-37.0) g/dL Neutrophils # 11.0 H (1.3-7.7) k/uL Chloride 115 H (98-107) mmol/L BUN 34 H (9-20) mg/dL Glucose 152 H (74-99) mg/dL POC Glucose (mg/dL) 175 H (70-110) mg/dL Calcium 7.7 L (8.4-10.2) mg/dL Iron (65-175) UG/DL % Saturation (15.00-50.00) Alkaline Phosphatase 173 H (38-126) U/L Total Protein 5.8 L (6.3-8.2) g/dL Albumin 2.5 L (3.5-5.0) g/dL Vitamin B12 (200.0-944.0) pg/mL 08/27/24 Range/Units 06:02 WBC (3.8-10.6) k/uL RBC (4.30-5.90) m/uL Hgb (13.0-17.5) gm/dL Hct (39.0-53.0) % MCHC (31.0-37.0) g/dL Neutrophils # (1.3-7.7) k/uL Chloride (98-107) mmol/L BUN (9-20) mg/dL Glucose (74-99) mg/dL POC Glucose (mg/dL) 134 H (70-110) mg/dL Calcium (8.4-10.2) mg/dL Iron (65-175) UG/DL % Saturation (15.00-50.00) Alkaline Phosphatase (38-126) U/L Total Protein (6.3-8.2) g/dL Albumin (3.5-5.0) g/dL Vitamin B12 (200.0-944.0) pg/mL Microbiology - Last 24 Hours (Table) 08/26/24 01:24 Urine Culture - Final Urine,Catheterized Strep agalactiae - (group b) 08/25/24 22:43 Blood Culture Gram Stain - Preliminary Blood Blood Culture - Preliminary Strep A Molecular ID Assessment and Plan (1) UTI (urinary tract infection) Current Visit: Yes Status: Acute Code(s): N39.0 - URINARY TRACT INFECTION, SITE NOT SPECIFIED SNOMED Code(s): 73351102 (2) Pneumonia Current Visit: Yes Status: Acute Code(s): J18.9 - PNEUMONIA, UNSPECIFIED ORGANISM SNOMED Code(s): 804216003 (3) Sepsis Current Visit: Yes Status: Acute Code(s): A41.9 - SEPSIS, UNSPECIFIED ORGANISM SNOMED Code(s): 79817495 Plan: 1patient presented hospital with sepsis in this patient who did have hypothermia hypertension elevated white count meeting currently for SIRS source likely urinary and a possible component of pneumonia 2patient with streptococcal bacteremia source possible pneumonia/UTI. 3-blood culture repeated document clearance of bacteremia. 4-Rocephin 2 g daily while waiting for the culture to finalize Family the bedside question concern answered We will follow on clinical condition and cultures to further adjust medication if needed Thank you for this consultation we will follow the patient along with you Dictation was produced using [email or web address] software. please excuse any grammatical, word or spelling errors. Time with Patient: Greater than 30
--- NOTE | 2024-08-28 00:11 | EEG ---
ELECTROENCEPHALOGRAM REPORT PREAMBLE: This is a 74-year-old male, who is mentally challenged, has seizure disorder, came with altered mental status. CURRENT MEDICATIONS: 1. Dilantin. 2. Depakote. EEG FINDINGS: This is a 21-channel digital EEG recorded with video component, utilizing 10/20 international system with referential and bipolar montages. Recording starts and continues with the presence of low amplitude and mixed frequencies of 6 Hz theta with 2 to 3 Hz delta activity in bihemispheric region. Background does not seem to be reactive to eye opening or closing. Photic driving response was not seen. Different stages of sleep were not seen. No focal or generalized epileptiform activity was seen. IMPRESSION: This is an abnormal EEG due to background slowing of moderate to severe degree. This is suggestive of generalized cerebral dysfunction as can be seen with toxic metabolic encephalopathy or related to diffuse structural brain abnormality. Clinical correlation is recommended. No epileptiform activity was seen. MMODL / IJN: [id number] /
[2024-08-28 00:14] LABS: Glucose,Whole Blood 148 mg/dL (70-110)
[2024-08-28 04:59] LABS: Basophils % (A) 0 %; Eosinophils % (A) 0 %; HCT 33.9 % (39.0-53.0); HGB 10.2 gm/dL (13.0-17.5); Hypochromasia Marked; Lymphocytes # (A) 1.2 k/uL (1.0-4.8); Lymphocytes % (A) 10 %; MCH 29.1 pg (25.0-35.0); Mean Platelet Volume 11.4; Monocytes # (A) 0.4 k/uL (0-1.0); Monocytes % (A) 3 %; Neutrophils % (A) 85 %; Platelet Count 155 k/uL (150-450); RBC 3.49 m/uL (4.30-5.90); RDW 14.2 % (11.5-15.5); WBC 11.7 k/uL (3.8-10.6)
[2024-08-28 05:14] LABS: ALT 21 U/L (4-49); AST 40 U/L (17-59); African American GFR (CKD) >90 (>60 ml/min/1.73 sqM); Albumin 2.4 g/dL (3.5-5.0); Alkaline Phosphatase 152 U/L (38-126); Anion Gap 2 mmol/L; Blood Urea Nitrogen 25 mg/dL (9-20); Calcium 7.8 mg/dL (8.4-10.2); Carbon Dioxide 24 mmol/L (22-30); Chloride 114 mmol/L (98-107); Glucose 152 mg/dL (74-99); Non-African American GFR(CKD) >90 (>60 ml/min/1.73 sqM); Potassium 3.7 mmol/L (3.5-5.1); Sodium 140 mmol/L (137-145); Total Bilirubin 0.3 mg/dL (0.2-1.3); Total Protein 5.6 g/dL (6.3-8.2)
[2024-08-28] MEDS ORDERED: Potassium Replacement Protocol 1 EACH MISC MISCELLANE PRN (05:17)
[2024-08-28] MEDS: POTASSIUM CHLORIDE 10 MEQ in WATER FOR INJECTION 1 100ML.BAG IVPB SCH (05:27)
[2024-08-28 06:03] LABS: Glucose,Whole Blood 139 mg/dL (70-110)
--- NOTE | 2024-08-28 07:08 | XR ---
EXAMINATION TYPE: XR chest 1V portable DATE OF EXAM: 08/28/2024 5:35 AM COMPARISON: Chest radiographs from 08/27/2024 CLINICAL INDICATION: Male, 74 years old with history of increase oxygen demand; [facility] TECHNIQUE: XR chest 1V portable Frontal view of the chest. FINDINGS: Lungs/Pleura: Prominent interstitial lung markings are seen scattered throughout the lungs. Increased interstitial opacities along the left heart border. No evidence of focal consolidation, pneumothorax or pleural effusion. Pulmonary vascularity: Unremarkable. Heart/mediastinum: Cardiomediastinal silhouette is unremarkable. Musculoskeletal: No acute osseous pathology. Other findings: None Lines/Tubes: Nasogastric tube with its distal tip and side-port projecting under the diaphragm. Right internal jugular central venous catheter with distal tip at the cavoatrial junction. IMPRESSION: 1. Left basilar/left perihilar airspace opacities possibly due to patient positioning. Stable support lines and support tubes. [facility], , 08/28/2024 7:05 AM
[2024-08-28] MEDS: LACTATED RINGERS 1,000 ML IV SCH (09:39)
--- NOTE | 2024-08-28 11:08 | P.PN ---
Subjective Progress Note Date: 08/27/24 Patient was seen for a follow-up. Patient is off Levophed, but on dopamine 8 mcg/kg/min. Patient's sister was present. She mentions that patient is slightly better, has been more alert this a.m. Now patient is sleeping. He does have pneumonia. She also mentioned that patient fell off the bed on 08/13. She found it out from the records at the facility where he lives. No seizures reported. Objective - Vital Signs Vital signs: Vital Signs Temp 97.7 F 08/27/24 08:00 Pulse 58 L 08/27/24 16:00 Resp 13 08/27/24 16:00 BP 116/39 08/26/24 21:30 Pulse Ox 98 08/27/24 16:00 FiO2 100 08/26/24 19:44 Intake & Output 08/26/24 08/27/24 08/27/24 18:59 06:59 18:59 Intake Total 1152.441 5767.265 1197.593 Output Total 215 910 640 Balance 7066.961 4909.265 557.593 Weight 71.6 kg 81.4 kg 81.4 kg Intake: IV 293 2136 540 .9NS Pressure Bag 33 36 30 0.9 KVO 100 10 Cefepime 2 gm In Sodium 100 Chloride 0.9% 100 ml @ 25 mls/hr IVPB Q8HR [facility] Rx# :[id number] Dextrose 5% in Water 1, 1100 500 000 ml @ 100 mls/hr IV . Q10H [facility] Rx#:[id number] Sodium Chloride 0.9% 1, 260 000 ml @ 130 mls/hr IV . Q7H42M [facility] Rx#:[id number] Valproate Sodium 500 mg 200 In Sodium Chloride 0.9% 100 ml @ 100 mls/hr IVPB Q6HR [facility] Rx#:[id number] Vancomycin 1,250 mg In 500 Sodium Chloride 0.9% 250 ml @ 125 mls/hr IVPB Q8H [facility] Rx#:[id number] metroNIDAZOLE-NS PMX 500 100 mg In Saline 1 100ml.bag @ 100 mls/hr IVPB Q8HR [facility] Rx#:[id number] Intake, IV Titration 1638.349 154.265 657.593 Amount ACETAMINOPHEN IV (For NPO 100 ) 1,000 mg In Empty Bag 1 bag @ 400 mls/hr IVPB ONCE ONE Rx#:[id number] Cefepime 2 gm In Sodium 100 Chloride 0.9% 100 ml @ 25 mls/hr IVPB Q8HR COUNTS INCLUDE 234 BEDS AT THE [facility] Rx# :[id number] DOPamine DRIP 800 mg In 106.305 Dextrose/Water 1 250ml. bag @ 1 MCG/KG/MIN 1.343 mls/hr IV .Q24H [facility] Rx#: [id number] DOPamine DRIP 800 mg In 218.584 Dextrose/Water 1 250ml. bag @ 5 MCG/KG/MIN 7.654 mls/hr IV .Q24H [facility] Rx#: [id number] Dextrose 5% in Water 1, 599 100 000 ml @ 100 mls/hr IV . Q10H COUNTS INCLUDE 234 BEDS AT THE [facility] Rx#:[id number] Norepinephrine 32 mg In 70.765 54.265 1.288 Sodium Chloride 0.9% 218 ml @ 0.05 MCG/KG/MIN 1. 914 mls/hr IV .Q24H [facility] Rx#:[id number] Piperacillin-Tazobactam 3 100 .375 gm In Sodium Chloride 0.9% 100 ml @ 25 mls/hr IVPB Q8H [facility] Rx#: [id number] Potassium Chloride 10 meq 200 In Water For Injection 1 100ml.bag @ 100 mls/hr IVPB Q1H COUNTS INCLUDE 234 BEDS AT THE [facility] Rx#: [id number] Valproate Sodium 500 mg 100 100 In Sodium Chloride 0.9% 100 ml @ 100 mls/hr IVPB Q6HR [facility] Rx#:[id number] Vancomycin 1,250 mg In 250 Sodium Chloride 0.9% 250 ml @ 125 mls/hr IVPB Q8H [facility] Rx#:[id number] cefTRIAXone 2 gm In 50 Sodium Chloride 0.9% 50 ml @ 100 mls/hr IVPB Q24HR [facility] Rx#:[id number] metroNIDAZOLE-NS PMX 500 100 200 mg In Saline 1 100ml.bag @ 100 mls/hr IVPB Q8HR COUNTS INCLUDE 234 BEDS AT THE [facility] Rx#:[id number] Output: Gastric Drainage 150 Urine 215 760 640 Other: Voiding Method Indwelling Catheter Indwelling Catheter Indwelling Catheter ABP, PAP, CO, CI - Last Documented Arterial Blood Pressure 172/63 - Exam Patient is somnolent at this time. No obvious seizure-like activity. - Labs CBC & Chem 7: 08/28/24 04:15 08/28/24 04:15 Labs: Abnormal Lab Results - Last 24 Hours (Table) 08/26/24 08/27/24 08/27/24 Range/Units 18:47 00:45 05:00 WBC 13.1 H (3.8-10.6) k/uL RBC 3.52 L (4.30-5.90) m/uL Hgb 10.3 L (13.0-17.5) gm/dL Hct 34.3 L (39.0-53.0) % MCHC 29.9 L (31.0-37.0) g/dL Neutrophils # 11.0 H (1.3-7.7) k/uL Chloride (98-107) mmol/L BUN (9-20) mg/dL Glucose (74-99) mg/dL POC Glucose (mg/dL) 142 H 175 H (70-110) mg/dL Calcium (8.4-10.2) mg/dL Alkaline Phosphatase (38-126) U/L Total Protein (6.3-8.2) g/dL Albumin (3.5-5.0) g/dL 08/27/24 08/27/24 Range/Units 05:00 06:02 WBC (3.8-10.6) k/uL RBC (4.30-5.90) m/uL Hgb (13.0-17.5) gm/dL Hct (39.0-53.0) % MCHC (31.0-37.0) g/dL Neutrophils # (1.3-7.7) k/uL Chloride 115 H (98-107) mmol/L BUN 34 H (9-20) mg/dL Glucose 152 H (74-99) mg/dL POC Glucose (mg/dL) 134 H (70-110) mg/dL Calcium 7.7 L (8.4-10.2) mg/dL Alkaline Phosphatase 173 H (38-126) U/L Total Protein 5.8 L (6.3-8.2) g/dL Albumin 2.5 L (3.5-5.0) g/dL Microbiology - Last 24 Hours (Table) 08/27/24 08:11 Gram Stain - Preliminary Sputum 08/26/24 01:24 Urine Culture - Final Urine,Catheterized Strep agalactiae - (group b) 08/25/24 22:43 Blood Culture Gram Stain - Preliminary Blood Blood Culture - Preliminary Strep A Molecular ID Assessment and Plan Assessment: * Altered mental status likely due to toxic metabolic encephalopathy. * Status post hypothermia, hypotension, bradycardia, improved. Patient currently on pressors with dopamine. Patient is off Levophed. * Sepsis with bacteremia * Possible septic shock * Bacterial pneumonia * Acute respiratory failure * Acute UTI with strep agalactiae * Hypernatremia * Seizure disorder, currently in remission * Mentally challenged * History of right spastic hemiparesis * Wheelchair-bound * Minimal verbal state, at baseline Plan: * Treatment of various metabolic/medical conditions as per IM, critical care and other specialties on board. * Vitamin B12 1896, Dilantin level 14.7 which is therapeutic and Depakote 40.6. * Continue same dose of seizure medication including Dilantin 100 mg 3 times daily and Depakote 1000 mg every 12 hours. While in the hospital, patient will be given Depakote 500 mg IV every 6 hours, and Dilantin 100 mg IV every 8 hours. * EEG was abnormal due to background slowing of moderate to severe degree. This is suggestive of generalized cerebral dysfunction as can be seen with toxic metabolic encephalopathy, or related to diffuse structural brain abnormality. Clinical correlation is recommended. No epileptiform activity was seen. * 2D echo was technically difficult study. Normal ventricular size and systolic function with EF 55 to 60%. No obvious regional wall motion abnormalities. Mildly increased left atrial diameter. Mild MR, AR. * Patient currently on ceftriaxone 2 g every 24 hours, metronidazole, vancomycin. ID following. * Continue present management. * Discussed with patient's family and nursing staff in detail. Thank you for the consult.
[2024-08-28 11:32] LABS: Glucose,Whole Blood 112 mg/dL (70-110)
--- NOTE | 2024-08-28 11:41 | P.PN ---
Subjective Progress Note Date: 08/28/24 Principal diagnosis: Mental status changes, sepsis, bradycardia. This is a 74-year-old white male with history of cognitive impairment, mentally challenged, known history of multiple medical problems including seizure disorder, patient is bedbound, has flexion contractures, [facility] Presented to the ER last night with altered mental status as documented by the ER physician and as noted by the extended-care facility staff. Apparently has not been eating, and upon his initial evaluation in the ER, patient was noted to be hypothermic with a temp of 84. Patient was hypotensive, bradycardic, his cardiac rate was in the 20s. Patient was not responsive to any stimuli, but according to the ER physician he was able to protect his airways, and did not seem to be in respiratory distress. Did not require intubation or mechanical ventilation. However patient required placement on dopamine for his bradycardia, and he was also placed on norepinephrine at the same time. Transferred to the ICU on dopamine at 12 mcg/kg/min norepinephrine at 0.08 mcg/kg/min patient received IV fluids and he had external warming performed, and I saw him today his temperature is 95. Patient remains on a nonrebreather mask/15 L flow, his ABG today showed a pO2 of 52 pCO2 43 pH of 7.37. Again his temp is up to 95. Sodium was noted to be elevated and he is now on D5W at 100 cc/h. The patient himself is nonverbal, and does not follow any instructions. His labs today show WBC count is 14.1 hemoglobin 12.1, sodium was noted to be 151 BUN is 45 creatinine 0.57 his IV fluid was changed from 0.9 normal saline to D5W. Liver enzymes were noted to be a bit elevated lipase was 1661. And alkaline phosphatase was 211, drug screen was positive only for barbiturates. Otherwise negative drug screen. Phenytoin level was therapeutic 14.7 valproic acid was subtherapeutic at 40.6. Progress note dated August 27, 2024. This is a 74-year-old male who was admitted to the hospital on August 25, 2024, with mental status changes, bradycardia, and sepsis. Initially his heart rate was only 24 bpm. He is seen today in room 255. He continues on 4 L nasal can nula. He has an NG tube in place. The patient continues on D5W at 100 cc an hour, and dopamine at 8 mcg/kg/min. The patient was found to have streptococci, both in blood and urine. He continues on Rocephin and Flagyl. His overall prognosis remains poor. White count 13.1, hemoglobin 10.3, macro 34.3, platelet count 166,000. Sodium 145, potassium 3.7, chlorides 115, CO2 22, BUN 34, creatinine 0.74. Glucose 134. Albumin is 2.5. Calcium is 7.7. The patient had group be strep in his urine, and group A strep, and his blood. Chest x-ray shows a patchy infiltrate, in the left lower lobe. Progress note dated August 28, 2024. 74-year-old male who was admitted to the hospital on August 25, 2024, with mental status changes, bradycardia, and sepsis. His heart rate initially was only 24. He is seen again today in room 255. The patient continues on 2 L of oxygen by nasal cannula. NG tube was in place. He is getting dopamine at 5 mcg/kg/min. He is on D5W at 100 cc an hour, which will be changed to lactated Ringer's at 100 cc an hour. The patient is a no code. White count 11.7, hemoglobin 10.2, hematocrit 33.9, platelet count 155,000. Sodium 140, potassium 3.8, chlorides 114, CO2 24, BUN 25, creatinine 0.43 glucose 112, calcium 7.8, albumin 2.4. He was positive for group B strep, and blood was positive for group A strep. Chest x-ray shows a left basilar left perihilar opacity, potentially relating to pneumonia. Objective - Vital Signs Vital signs: Vital Signs Temp 95.7 F L 08/28/24 11:00 Pulse 51 L 08/28/24 11:00 Resp 16 08/28/24 11:00 BP 112/40 08/28/24 10:30 Pulse Ox 99 08/28/24 11:00 FiO2 100 08/26/24 19:44 Intake & Output 08/27/24 08/28/24 08/28/24 18:59 06:59 18:59 Intake Total 7419.967 7747.603 616.511 Output Total 720 765 190 Balance 2644.080 2554.603 426.511 Weight 81.4 kg 84.6 kg 84.6 kg Intake: IV 1046 1789 332 .9NS Pressure Bag 36 39 12 0.9 KVO 10 150 20 Dextrose 5% in Water 1, 1000 1300 300 000 ml @ 100 mls/hr IV . Q10H [facility] Rx#:[id number] Valproate Sodium 500 mg 200 In Sodium Chloride 0.9% 100 ml @ 100 mls/hr IVPB Q6HR [facility] Rx#:[id number] metroNIDAZOLE-NS PMX 500 100 mg In Saline 1 100ml.bag @ 100 mls/hr IVPB Q8HR [facility] Rx#:[id number] Intake, IV Titration 857.593 304.603 284.511 Amount DOPamine DRIP 800 mg In 106.305 104.603 84.511 Dextrose/Water 1 250ml. bag @ 1 MCG/KG/MIN 1.343 mls/hr IV .Q24H [facility] Rx#: [id number] Lactated Ringers 1,000 ml 100 @ 100 mls/hr IV .Q10H [facility] Rx#:[id number] Norepinephrine 32 mg In 1.288 Sodium Chloride 0.9% 218 ml @ 0.05 MCG/KG/MIN 1. 914 mls/hr IV .Q24H [facility] Rx#:[id number] Potassium Chloride 10 meq 400 In Water For Injection 1 100ml.bag @ 100 mls/hr IVPB Q1H [facility] Rx#: [id number] Potassium Chloride 10 meq 200 In Water For Injection 1 100ml.bag @ 100 mls/hr IVPB Q1H [facility] Rx#: [id number] Valproate Sodium 500 mg 100 In Sodium Chloride 0.9% 100 ml @ 100 mls/hr IVPB Q6HR [facility] Rx#:[id number] cefTRIAXone 2 gm In 50 Sodium Chloride 0.9% 50 ml @ 100 mls/hr IVPB Q24HR [facility] Rx#:[id number] metroNIDAZOLE-NS PMX 500 200 100 mg In Saline 1 100ml.bag @ 100 mls/hr IVPB Q8HR [facility] Rx#:[id number] Output: Urine 720 765 190 Other: Voiding Method Indwelling Catheter Indwelling Catheter ABP, PAP, CO, CI - Last Documented Arterial Blood Pressure 150/54 - Exam No acute distress, very lethargic, and poorly responsive. Nasal O2 was noted, as well as an NG tube. HEENT examination is grossly unremarkable. Mucous membranes are moist. No oral lesions. Neck supple. Full range of motion. No adenopathy thyromegaly or neck vein distention. Cardiovascular examination reveals regular rhythm rate. S1-S2 normal. No S3 or S4. No discernible murmur noted. Heart sounds are distant. Lungs reveal scattered bilateral rhonchi. No wheezes. No crackles. Breath sounds are equal bilaterally. Abdomen soft bowel sounds are heard. No masses or tenderness. Extremities are intact. No cyanosis clubbing or edema. Skin is without rash or lesion. Neurologic examination is very difficult to evaluate at this time. - Labs CBC & Chem 7: 08/28/24 04:15 08/28/24 10:15 Labs: Abnormal Lab Results - Last 24 Hours (Table) 08/27/24 08/28/24 08/28/24 Range/Units 18:12 00:13 04:15 WBC 11.7 H (3.8-10.6) k/uL RBC 3.49 L (4.30-5.90) m/uL Hgb 10.2 L (13.0-17.5) gm/dL Hct 33.9 L (39.0-53.0) % MCHC 30.0 L (31.0-37.0) g/dL Neutrophils # 10.0 H (1.3-7.7) k/uL Chloride (98-107) mmol/L BUN (9-20) mg/dL Creatinine (0.66-1.25) mg/dL Glucose (74-99) mg/dL POC Glucose (mg/dL) 151 H 148 H (70-110) mg/dL Calcium (8.4-10.2) mg/dL Alkaline Phosphatase (38-126) U/L Total Protein (6.3-8.2) g/dL Albumin (3.5-5.0) g/dL 08/28/24 08/28/24 08/28/24 Range/Units 04:15 06:01 11:30 WBC (3.8-10.6) k/uL RBC (4.30-5.90) m/uL Hgb (13.0-17.5) gm/dL Hct (39.0-53.0) % MCHC (31.0-37.0) g/dL Neutrophils # (1.3-7.7) k/uL Chloride 114 H (98-107) mmol/L BUN 25 H (9-20) mg/dL Creatinine 0.43 L (0.66-1.25) mg/dL Glucose 152 H (74-99) mg/dL POC Glucose (mg/dL) 139 H 112 H (70-110) mg/dL Calcium 7.8 L (8.4-10.2) mg/dL Alkaline Phosphatase 152 H (38-126) U/L Total Protein 5.6 L (6.3-8.2) g/dL Albumin 2.4 L (3.5-5.0) g/dL Microbiology - Last 24 Hours (Table) 08/25/24 22:43 Blood Culture Gram Stain - Preliminary Blood Blood Culture - Preliminary Strep A Molecular ID 08/26/24 11:35 Nasal Screen MRSA/MSSA - Final Nasal Swab 08/27/24 08:11 Gram Stain - Preliminary Sputum 08/26/24 01:24 Urine Culture - Final Urine,Catheterized Strep agalactiae - (group b) Assessment and Plan Assessment: Acute mental status changes, likely multifactorial, in part related to sepsis, hypothermia, and hypothyroidism. Streptococcal bacteremia. Streptococcal urinary tract infection. Hypothyroidism. Hypovolemic hyponatremia. History of seizure disorder. Acute metabolic encephalopathy. History of cognitive impairment. Acute hypoxemic respiratory failure secondary to aspiration pneumonia. Plan: Plan dated August 27, 2024. The patient is seen today in room 255. The patient's overall prognosis remains poor. He continues on dopamine at 8 mcg/kg/min. The patient is also on D5W at 100 cc an hour. He has an NG tube in place. Will talk to the family about a feeding tube. He is getting oxygen by nasal cannula at 4 L. He was admitted on August 25, 2024. He was found to have streptococcal bacteremia and streptococcal urinary tract infection. He remains on Rocephin and Flagyl. All labs, x-rays, and medications are reviewed. The patient's overall prognosis remains poor. We will continue to follow make recommendations. Dictation was produced using [employer] software. Please excuse any grammatical, word or spelling errors. Plan dated August 28, 2024. The patient is seen today in room 255. He continues on oxygen by nasal cannula 2 L. He has an NG tube in place. He is getting D5W at 100 cc an hour which will be converted to LR at 100 cc an hour. The patient does continue on dopamine, at 5 mcg/kg/min. Yesterday he was on 8 mcg/kg/min. He remains on antibiotics in the form of Rocephin and Flagyl. All labs, x-rays, medications are reviewed. We did have the nurse asked the family about a feeding tube. For the time being they do not want a feeding tube. We will continue to follow. Prognosis is guarded. We will try some trickle feedings, down the NG tube. Prognosis is guarded. Dictation was produced using [employer] dictation software. Please excuse any grammatical, word or spelling errors. Time with Patient: Greater than 30
--- NOTE | 2024-08-28 13:34 | P.PN ---
Subjective Progress Note Date: 08/28/24 History of present illness: Patient is a pleasant 74-year-old male with significant past medical history of cognitive impairment currently residing in an adult foster center, seizure, hypothyroidism who presented via EMS with altered mental status. Patient is currently unresponsive and unable to answer questions. Sister at bedside able to provide some history. She reports family history of mother having CABG in her 50s. She reports that caregiver noticed that he was coughing for the past couple days and apparently had a chest x-ray at the facility. Patient was then noted to not be eating and normally eats very well. He was then less responsive and EMS was called. EKG in the emergency room showed sinus bradycardia with a heart rate of 27 bpm, no heart block. His core temp was 85.8 F with blood pressure 44/33. Chest x-ray shows bibasilar opacities he was hypotensive and started on a dopamine and Levophed drip. Head CT with no acute findings however shows extensive encephalomalacia. Kidney ultrasound was done and shows no hydrocephalus. He has apparently mostly nonverbal at baseline. Labs reviewed: WBC 14.1, hemoglobin 12.1, sodium 151, potassium 4.0, creatinine 0.57, TSH 7.3, troponin negative x 1, BNP 305. RN reports attempting to wean dopamine however blood pressure did not tolerate and had to go up again. Sister reports no history of syncope and patient has been wheelchair-bound for the past 2 years. Progress note 08/27/2024 Patient seen and examined at bedside this a.m. Patient is currently maintained on IV phenytoin and IV dopamine drip. His heart rate while resting is in mid 50s with no overnight pauses noticed. His EKG does not show any AV nehemias blocks or any's concerns of sick sinus syndrome. Bradycardia appears to be related to hypothermia which is related to possible sepsis. TSH is 7 however T4 is normal. 08/28/2024 Patient is seen and examined at bedside this a.m. He still maintained on dopamine drip at 6 mics. His resting heart rate is around 55 bpm, blood pressure 122/43, normal sinus rhythm with no concerns of pauses or blocks. He still noticed to be hypothermic and is placed on Roland hugger's. PHYSICAL EXAMINATION: This is a 74-year-old male in no apparent distress at the time of my examination. HEENT: Head is atraumatic, normocephalic. Mucous membranes of the mouth are moist. Neck is supple. There is no jugular venous distention. CHEST EXAMINATION: Lungs with rhonchi. On nonrebreather face mask. No chest wall tenderness is noted on palpation or with deep breathing. HEART EXAMINATION: Heart regular rate and rhythm. S1, S2 heard. No murmurs, gallops or rub. ABDOMEN: Soft, nontender. Bowel sounds are heard. EXTREMITIES: 2+ peripheral pulses, evidence of +1 peripheral edema. NEUROLOGIC EXAMINATION: Patient is drowsy, responds to voice but not currently opening eyes. IMPRESSION AND PLAN: Bradycardia, improved Bradycardia most likely related to hypothermia which is related to possible sepsis Streptococcal septicemia Cognitive impairment History of seizures Altered mental status Hypotension Hypothermia Hypernatremia Leukocytosis Likely septic shock Cardiac testing TSH 7, normal T4, Echo EF 55%, No obvious regional wall motion abnormality, mild LVH, mild aortic regurgitation, mild mitral regurgitation, mild tricuspid regurgitation PLAN: Avoid all AV nehemias blocking agents IV antibiotics and and sepsis management Repeat blood cultures Titrate down dopamine drip once infection and septicemia improves and patient is not hypothermic anymore I had a detailed discussion about patient's goals of care with the patient's guardian. She would like patient to be DNR/DNI. Objective - Vital Signs Vital signs: Vital Signs Temp 97.9 F 08/28/24 13:15 Pulse 60 08/28/24 13:15 Resp 12 08/28/24 13:15 BP 112/40 08/28/24 10:30 Pulse Ox 97 08/28/24 13:15 FiO2 100 08/26/24 19:44 Intake & Output 08/27/24 08/28/24 08/28/24 18:59 06:59 18:59 Intake Total 6347.379 4109.603 616.511 Output Total 720 765 190 Balance 9399.646 7598.603 426.511 Weight 81.4 kg 84.6 kg 84.6 kg Intake: IV 1046 1789 332 .9NS Pressure Bag 36 39 12 0.9 KVO 10 150 20 Dextrose 5% in Water 1, 1000 1300 300 000 ml @ 100 mls/hr IV . Q10H [facility] Rx#:[id number] Valproate Sodium 500 mg 200 In Sodium Chloride 0.9% 100 ml @ 100 mls/hr IVPB Q6HR [facility] Rx#:[id number] metroNIDAZOLE-NS PMX 500 100 mg In Saline 1 100ml.bag @ 100 mls/hr IVPB Q8HR [facility] Rx#:[id number] Intake, IV Titration 857.593 304.603 284.511 Amount DOPamine DRIP 800 mg In 106.305 104.603 84.511 Dextrose/Water 1 250ml. bag @ 1 MCG/KG/MIN 1.343 mls/hr IV .Q24H [facility] Rx#: [id number] Lactated Ringers 1,000 ml 100 @ 100 mls/hr IV .Q10H [facility] Rx#:[id number] Norepinephrine 32 mg In 1.288 Sodium Chloride 0.9% 218 ml @ 0.05 MCG/KG/MIN 1. 914 mls/hr IV .Q24H [facility] Rx#:[id number] Potassium Chloride 10 meq 400 In Water For Injection 1 100ml.bag @ 100 mls/hr IVPB Q1H [facility] Rx#: [id number] Potassium Chloride 10 meq 200 In Water For Injection 1 100ml.bag @ 100 mls/hr IVPB Q1H [facility] Rx#: [id number] Valproate Sodium 500 mg 100 In Sodium Chloride 0.9% 100 ml @ 100 mls/hr IVPB Q6HR [facility] Rx#:[id number] cefTRIAXone 2 gm In 50 Sodium Chloride 0.9% 50 ml @ 100 mls/hr IVPB Q24HR [facility] Rx#:[id number] metroNIDAZOLE-NS PMX 500 200 100 mg In Saline 1 100ml.bag @ 100 mls/hr IVPB Q8HR [facility] Rx#:[id number] Output: Urine 720 765 190 Other: Voiding Method Indwelling Catheter Indwelling Catheter ABP, PAP, CO, CI - Last Documented Arterial Blood Pressure 116/43 - Labs CBC & Chem 7: 08/28/24 04:15 08/28/24 10:15 Labs: Abnormal Lab Results - Last 24 Hours (Table) 08/27/24 08/28/24 08/28/24 Range/Units 18:12 00:13 04:15 WBC 11.7 H (3.8-10.6) k/uL RBC 3.49 L (4.30-5.90) m/uL Hgb 10.2 L (13.0-17.5) gm/dL Hct 33.9 L (39.0-53.0) % MCHC 30.0 L (31.0-37.0) g/dL Neutrophils # 10.0 H (1.3-7.7) k/uL Chloride (98-107) mmol/L BUN (9-20) mg/dL Creatinine (0.66-1.25) mg/dL Glucose (74-99) mg/dL POC Glucose (mg/dL) 151 H 148 H (70-110) mg/dL Calcium (8.4-10.2) mg/dL Alkaline Phosphatase (38-126) U/L Total Protein (6.3-8.2) g/dL Albumin (3.5-5.0) g/dL 08/28/24 08/28/24 08/28/24 Range/Units 04:15 06:01 11:30 WBC (3.8-10.6) k/uL RBC (4.30-5.90) m/uL Hgb (13.0-17.5) gm/dL Hct (39.0-53.0) % MCHC (31.0-37.0) g/dL Neutrophils # (1.3-7.7) k/uL Chloride 114 H (98-107) mmol/L BUN 25 H (9-20) mg/dL Creatinine 0.43 L (0.66-1.25) mg/dL Glucose 152 H (74-99) mg/dL POC Glucose (mg/dL) 139 H 112 H (70-110) mg/dL Calcium 7.8 L (8.4-10.2) mg/dL Alkaline Phosphatase 152 H (38-126) U/L Total Protein 5.6 L (6.3-8.2) g/dL Albumin 2.4 L (3.5-5.0) g/dL Microbiology - Last 24 Hours (Table) 08/27/24 08:11 Gram Stain - Preliminary Sputum Sputum Culture - Preliminary 08/25/24 22:43 Blood Culture Gram Stain - Preliminary Blood Blood Culture - Preliminary Strep A Molecular ID 08/26/24 11:35 Nasal Screen MRSA/MSSA - Final Nasal Swab 08/26/24 01:24 Urine Culture - Final Urine,Catheterized Strep agalactiae - (group b)
--- NOTE | 2024-08-28 13:57 | P.PN ---
Subjective Progress Note Date: 08/28/24 Subjective: Patient seen and examined at bedside. No acute events overnight. Remains bradycardic, continued on dopamine. Off of Levophed. Oxygen requirements coming down. NG tube in place Pertinent positives and negatives as discussed above, a complete review of systems was performed and all other systems are negative. Vitals Signs Reviewed. General: Nontoxic, in mild acute distress distress, appears at stated age Derm: Warm, dry Head: Atraumatic, normocephalic, symmetric Eyes: EOMI, no lid lag, anicteric sclera Mouth: No lip lesion, mucus membranes moist Cardiovascular: S1S2 reg, no murmur Lungs: Bilateral rhonchi, no accessory muscle use, supplemental oxygen Abdominal: Soft, nontender to palpation, no guarding, no appreciable organomegaly Ext: Upper and lower extremity contractures, 2+ bilateral lower extremity edema Neuro: Nonverbal, spontaneously opening eyes Psych: Somnolent Data Reviewed Today: Pertinent Labs: WBC 11.7, hemoglobin 10.2, creatinine 0.43, blood sugars range between 1 12-1 52, magnesium 7.2 Imaging: Chest x-ray independently interpreted from this morning, left lower lobe interstitial opacities. EKG shows moderate to severe background slowing co nsider toxic metabolic encephalopathy. Assessment and Plan: Active: Septic shock Bacterial pneumonia Strep bacteremia Acute hypoxic respiratory failure Acute metabolic encephalopathy Ileus Hypothermia, resolved Leukocytosis Hypernatremia - ICU following, weaning pressors, currently on dopamine drip, patient has NG in place, do trickle feeds - concern for possible adrenal crisis as well, on solu-cortef 100 IV q12hr - Repeat blood cultures pending, ID following, continued on IV ceftriaxone 2 g e very 24 hours as well as Flagyl 500 IV every 8 hours - echo showed LVEF 55 to 60%, mild mitral and aortic regurgitation, consider MICKY Epilepsy -On Dilantin 100 mg IV every 8 hours, valproic acid 500 IV every 6 hours - per report, mental status at baseline other than lethargy -Neurology following Bradycardia -Cardiology note reviewed, continue to wean pressors Chronic: Cognitive impairment Hypothyroidism BPH DVT ppx: Lovenox Code status: No code Anticipated discharge place: Pending clinical course Anticipated discharge time: Pending clinical course Objective - Vital Signs Vital signs: Vital Signs Temp 97.9 F 08/28/24 13:15 Pulse 60 08/28/24 13:15 Resp 12 08/28/24 13:15 BP 112/40 08/28/24 10:30 Pulse Ox 97 08/28/24 13:15 FiO2 100 08/26/24 19:44 Intake & Output 08/27/24 08/28/24 08/28/24 18:59 06:59 18:59 Intake Total 7769.576 6597.603 616.511 Output Total 720 765 190 Balance 4597.855 3300.603 426.511 Weight 81.4 kg 84.6 kg 84.6 kg Intake: IV 1046 1789 332 .9NS Pressure Bag 36 39 12 0.9 KVO 10 150 20 Dextrose 5% in Water 1, 1000 1300 300 000 ml @ 100 mls/hr IV . Q10H [facility] Rx#:[id number] Valproate Sodium 500 mg 200 In Sodium Chloride 0.9% 100 ml @ 100 mls/hr IVPB Q6HR [facility] Rx#:[id number] metroNIDAZOLE-NS PMX 500 100 mg In Saline 1 100ml.bag @ 100 mls/hr IVPB Q8HR [facility] Rx#:[id number] Intake, IV Titration 857.593 304.603 284.511 Amount DOPamine DRIP 800 mg In 106.305 104.603 84.511 Dextrose/Water 1 250ml. bag @ 1 MCG/KG/MIN 1.343 mls/hr IV .Q24H [facility] Rx#: [id number] Lactated Ringers 1,000 ml 100 @ 100 mls/hr IV .Q10H [facility] Rx#:[id number] Norepinephrine 32 mg In 1.288 Sodium Chloride 0.9% 218 ml @ 0.05 MCG/KG/MIN 1. 914 mls/hr IV .Q24H [facility] Rx#:[id number] Potassium Chloride 10 meq 400 In Water For Injection 1 100ml.bag @ 100 mls/hr IVPB Q1H [facility] Rx#: [id number] Potassium Chloride 10 meq 200 In Water For Injection 1 100ml.bag @ 100 mls/hr IVPB Q1H [facility] Rx#: [id number] Valproate Sodium 500 mg 100 In Sodium Chloride 0.9% 100 ml @ 100 mls/hr IVPB Q6HR [facility] Rx#:[id number] cefTRIAXone 2 gm In 50 Sodium Chloride 0.9% 50 ml @ 100 mls/hr IVPB Q24HR [facility] Rx#:[id number] metroNIDAZOLE-NS PMX 500 200 100 mg In Saline 1 100ml.bag @ 100 mls/hr IVPB Q8HR [facility] Rx#:[id number] Output: Urine 720 765 190 Other: Voiding Method Indwelling Catheter Indwelling Catheter ABP, PAP, CO, CI - Last Documented Arterial Blood Pressure 116/43 - Labs CBC & Chem 7: 08/28/24 04:15 08/28/24 10:15 Labs: Abnormal Lab Results - Last 24 Hours (Table) 08/27/24 08/28/24 08/28/24 Range/Units 18:12 00:13 04:15 WBC 11.7 H (3.8-10.6) k/uL RBC 3.49 L (4.30-5.90) m/uL Hgb 10.2 L (13.0-17.5) gm/dL Hct 33.9 L (39.0-53.0) % MCHC 30.0 L (31.0-37.0) g/dL Neutrophils # 10.0 H (1.3-7.7) k/uL Chloride (98-107) mmol/L BUN (9-20) mg/dL Creatinine (0.66-1.25) mg/dL Glucose (74-99) mg/dL POC Glucose (mg/dL) 151 H 148 H (70-110) mg/dL Calcium (8.4-10.2) mg/dL Alkaline Phosphatase (38-126) U/L Total Protein (6.3-8.2) g/dL Albumin (3.5-5.0) g/dL 08/28/24 08/28/24 08/28/24 Range/Units 04:15 06:01 11:30 WBC (3.8-10.6) k/uL RBC (4.30-5.90) m/uL Hgb (13.0-17.5) gm/dL Hct (39.0-53.0) % MCHC (31.0-37.0) g/dL Neutrophils # (1.3-7.7) k/uL Chloride 114 H (98-107) mmol/L BUN 25 H (9-20) mg/dL Creatinine 0.43 L (0.66-1.25) mg/dL Glucose 152 H (74-99) mg/dL POC Glucose (mg/dL) 139 H 112 H (70-110) mg/dL Calcium 7.8 L (8.4-10.2) mg/dL Alkaline Phosphatase 152 H (38-126) U/L Total Protein 5.6 L (6.3-8.2) g/dL Albumin 2.4 L (3.5-5.0) g/dL Microbiology - Last 24 Hours (Table) 08/27/24 08:11 Gram Stain - Preliminary Sputum Sputum Culture - Preliminary 08/25/24 22:43 Blood Culture Gram Stain - Preliminary Blood Blood Culture - Preliminary Strep A Molecular ID 08/26/24 11:35 Nasal Screen MRSA/MSSA - Final Nasal Swab
--- NOTE | 2024-08-28 14:39 | P.PN ---
Subjective Progress Note Date: 08/28/24 Principal diagnosis: Reason for follow-up is bacteremia Patient is a 74-year-old male with a past medical history significant for seizure disorder cognitive impairment hypothyroidism resident of the extended-care facility has been brought to the hospital for evaluation of mental status changes patient was noted to be hypothermic bradycardic requiring admission to ICU he did have positive blood culture with group B strep probably this consultation. On today's evaluation that is 08/28/2024, Patient is afebrile this morning patient seem to be breathing comfortably 2 L, oxygen the patient lethargic could not provide any history no vomiting diabetes changes reported by nursing staff. Patient white count is down to 11.7, creatinine 0.43 sputum culture currently pending Objective - Vital Signs Vital signs: Vital Signs Temp 98.4 F 08/28/24 14:15 Pulse 61 08/28/24 14:15 Resp 15 08/28/24 14:15 BP 112/40 08/28/24 10:30 Pulse Ox 97 08/28/24 14:15 FiO2 100 08/26/24 19:44 Intake & Output 08/27/24 08/28/24 08/28/24 18:59 06:59 18:59 Intake Total 6805.600 2958.603 955.511 Output Total 720 765 300 Balance 1110.211 4595.603 655.511 Weight 81.4 kg 84.6 kg 84.6 kg Intake: IV 1046 1789 371 .9NS Pressure Bag 36 39 21 0.9 KVO 10 150 50 Dextrose 5% in Water 1, 1000 1300 300 000 ml @ 100 mls/hr IV . Q10H [facility] Rx#:[id number] Valproate Sodium 500 mg 200 In Sodium Chloride 0.9% 100 ml @ 100 mls/hr IVPB Q6HR [facility] Rx#:[id number] metroNIDAZOLE-NS PMX 500 100 mg In Saline 1 100ml.bag @ 100 mls/hr IVPB Q8HR [facility] Rx#:[id number] Intake, IV Titration 857.593 304.603 584.511 Amount DOPamine DRIP 800 mg In 106.305 104.603 84.511 Dextrose/Water 1 250ml. bag @ 1 MCG/KG/MIN 1.343 mls/hr IV .Q24H [facility] Rx#: [id number] Lactated Ringers 1,000 ml 400 @ 100 mls/hr IV .Q10H [facility] Rx#:[id number] Norepinephrine 32 mg In 1.288 Sodium Chloride 0.9% 218 ml @ 0.05 MCG/KG/MIN 1. 914 mls/hr IV .Q24H [facility] Rx#:[id number] Potassium Chloride 10 meq 400 In Water For Injection 1 100ml.bag @ 100 mls/hr IVPB Q1H [facility] Rx#: [id number] Potassium Chloride 10 meq 200 In Water For Injection 1 100ml.bag @ 100 mls/hr IVPB Q1H [facility] Rx#: [id number] Valproate Sodium 500 mg 100 In Sodium Chloride 0.9% 100 ml @ 100 mls/hr IVPB Q6HR [facility] Rx#:[id number] cefTRIAXone 2 gm In 50 Sodium Chloride 0.9% 50 ml @ 100 mls/hr IVPB Q24HR [facility] Rx#:[id number] metroNIDAZOLE-NS PMX 500 200 100 mg In Saline 1 100ml.bag @ 100 mls/hr IVPB Q8HR [facility] Rx#:[id number] Output: Urine 720 765 300 Other: Voiding Method Indwelling Catheter Indwelling Catheter ABP, PAP, CO, CI - Last Documented Arterial Blood Pressure 120/44 - Exam GENERAL DESCRIPTION: An elderly male lying in bed in no distress RESPIRATORY SYSTEM: Unlabored breathing , decreased breath sounds at bases HEART: S1 S2 regular rate and rhythm , ABDOMEN: Soft , no tenderness EXTREMITIES: No edema feet - Labs CBC & Chem 7: 08/28/24 04:15 08/28/24 10:15 Labs: Abnormal Lab Results - Last 24 Hours (Table) 08/27/24 08/28/24 08/28/24 Range/Units 18:12 00:13 04:15 WBC 11.7 H (3.8-10.6) k/uL RBC 3.49 L (4.30-5.90) m/uL Hgb 10.2 L (13.0-17.5) gm/dL Hct 33.9 L (39.0-53.0) % MCHC 30.0 L (31.0-37.0) g/dL Neutrophils # 10.0 H (1.3-7.7) k/uL Chloride (98-107) mmol/L BUN (9-20) mg/dL Creatinine (0.66-1.25) mg/dL Glucose (74-99) mg/dL POC Glucose (mg/dL) 151 H 148 H (70-110) mg/dL Calcium (8.4-10.2) mg/dL Alkaline Phosphatase (38-126) U/L Total Protein (6.3-8.2) g/dL Albumin (3.5-5.0) g/dL 08/28/24 08/28/24 08/28/24 Range/Units 04:15 06:01 11:30 WBC (3.8-10.6) k/uL RBC (4.30-5.90) m/uL Hgb (13.0-17.5) gm/dL Hct (39.0-53.0) % MCHC (31.0-37.0) g/dL Neutrophils # (1.3-7.7) k/uL Chloride 114 H (98-107) mmol/L BUN 25 H (9-20) mg/dL Creatinine 0.43 L (0.66-1.25) mg/dL Glucose 152 H (74-99) mg/dL POC Glucose (mg/dL) 139 H 112 H (70-110) mg/dL Calcium 7.8 L (8.4-10.2) mg/dL Alkaline Phosphatase 152 H (38-126) U/L Total Protein 5.6 L (6.3-8.2) g/dL Albumin 2.4 L (3.5-5.0) g/dL Microbiology - Last 24 Hours (Table) 08/27/24 08:11 Gram Stain - Preliminary Sputum Sputum Culture - Preliminary 08/25/24 22:43 Blood Culture Gram Stain - Preliminary Blood Blood Culture - Preliminary Strep A Molecular ID 08/26/24 11:35 Nasal Screen MRSA/MSSA - Final Nasal Swab Assessment and Plan (1) UTI (urinary tract infection) Current Visit: Yes Status: Acute Code(s): N39.0 - URINARY TRACT INFECTION, SITE NOT SPECIFIED SNOMED Code(s): 22164988 (2) Pneumonia Current Visit: Yes Status: Acute Code(s): J18.9 - PNEUMONIA, UNSPECIFIED ORGANISM SNOMED Code(s): 862085241 (3) Sepsis Current Visit: Yes Status: Acute Code(s): A41.9 - SEPSIS, UNSPECIFIED ORGANISM SNOMED Code(s): 19810537 Plan: 1patient presented hospital with sepsis in this patient who did have hypothermia hypertension elevated white count meeting currently for SIRS source likely urinary placement as a component of pneumonia 2patient with streptococcal bacteremia source possible pneumonia/UTI. 3-blood culture has been repeated document clearance of bacteremia. 4-patient is currently being treated with Rocephin 2 g daily and Flagyl because of the ileus. Discussed with admitting physician Dictation was produced using [employer] dictation software. please excuse any grammatical, word or spelling errors. Time with Patient: Less than 30
[2024-08-28 17:04] LABS: Glucose,Whole Blood 129 mg/dL (70-110)
[2024-08-29 00:22] LABS: Glucose,Whole Blood 132 mg/dL (70-110)
[2024-08-29 05:21] LABS: Basophils % (A) 0 %; Eosinophils % (A) 0 %; HCT 32.6 % (39.0-53.0); HGB 10.1 gm/dL (13.0-17.5); Hypochromasia Marked; Lymphocytes # (A) 1.3 k/uL (1.0-4.8); Lymphocytes % (A) 12 %; MCH 29.9 pg (25.0-35.0); MCV 96.4 fL (80.0-100.0); Monocytes # (A) 0.4 k/uL (0-1.0); Monocytes % (A) 4 %; Neutrophils # (A) 8.8 k/uL (1.3-7.7); Neutrophils % (A) 83 %; Platelet Count 138 k/uL (150-450); RBC 3.38 m/uL (4.30-5.90); RDW 14.2 % (11.5-15.5); WBC 10.6 k/uL (3.8-10.6)
[2024-08-29 05:25] LABS: Mean Platelet Volume 11.9
[2024-08-29 05:26] LABS: African American GFR (CKD) >90 (>60 ml/min/1.73 sqM); Anion Gap 5 mmol/L; Blood Urea Nitrogen 26 mg/dL (9-20); Calcium 7.8 mg/dL (8.4-10.2); Carbon Dioxide 25 mmol/L (22-30); Chloride 110 mmol/L (98-107); Glucose 129 mg/dL (74-99); Non-African American GFR(CKD) >90 (>60 ml/min/1.73 sqM); Potassium 3.6 mmol/L (3.5-5.1); Sodium 140 mmol/L (137-145)
[2024-08-29] MEDS: POTASSIUM CHLORIDE 10 MEQ in WATER FOR INJECTION 1 100ML.BAG IVPB SCH ×2 (05:47→14:51)
--- NOTE | 2024-08-29 07:29 | XR ---
EXAMINATION TYPE: XR chest 1V portable DATE OF EXAM: 08/29/2024 5:29 AM COMPARISON: Chest radiograph from one day prior. CLINICAL INDICATION: Male, 74 years old with history of disease progression; [facility] TECHNIQUE: XR chest 1V portable Frontal view of the chest. FINDINGS: Lungs/Pleura: Prominent interstitial lung markings are seen scattered throughout the lungs. Increased interstitial opacities along the left heart border. No evidence of focal consolidation, pneumothorax or pleural effusion. Pulmonary vascularity: Unremarkable. Heart/mediastinum: Cardiomediastinal silhouette is unremarkable. Musculoskeletal: No acute osseous pathology. Other findings: None Lines/Tubes: Nasogastric tube with its distal tip and side-port projecting under the diaphragm. Right internal jugular central venous catheter with distal tip at the cavoatrial junction. IMPRESSION: 1. Left basilar/left perihilar airspace opacities possibly due to patient positioning. 2. Stable support line and support tube. [facility], , 08/29/2024 7:27 AM
--- NOTE | 2024-08-29 11:25 | P.PN ---
Subjective Progress Note Date: 08/28/24 Patient was seen for a follow-up. Patient sister was present by the bedside. Per nurse report, her temperature dropped but other vitals were stable. He has been sleeping most of the day. No seizures reported. Objective - Vital Signs Vital signs: Vital Signs Temp 98.1 F 08/28/24 16:30 Pulse 59 L 08/28/24 16:30 Resp 15 08/28/24 16:30 BP 111/50 08/28/24 16:30 Pulse Ox 97 08/28/24 16:30 FiO2 100 08/26/24 19:44 Intake & Output 08/27/24 08/28/24 08/28/24 18:59 06:59 18:59 Intake Total 0887.036 6621.603 1339.506 Output Total 720 765 365 Balance 0447.699 6411.603 974.506 Weight 81.4 kg 84.6 kg 84.6 kg Intake: IV 1046 1789 397 .9NS Pressure Bag 36 39 27 0.9 KVO 10 150 70 Dextrose 5% in Water 1, 1000 1300 300 000 ml @ 100 mls/hr IV . Q10H [facility] Rx#:[id number] Valproate Sodium 500 mg 200 In Sodium Chloride 0.9% 100 ml @ 100 mls/hr IVPB Q6HR [facility] Rx#:[id number] metroNIDAZOLE-NS PMX 500 100 mg In Saline 1 100ml.bag @ 100 mls/hr IVPB Q8HR [facility] Rx#:[id number] Intake, IV Titration 857.593 304.603 832.506 Amount DOPamine DRIP 800 mg In 106.305 104.603 132.506 Dextrose/Water 1 250ml. bag @ 1 MCG/KG/MIN 1.343 mls/hr IV .Q24H [facility] Rx#: [id number] Lactated Ringers 1,000 ml 600 @ 100 mls/hr IV .Q10H [facility] Rx#:[id number] Norepinephrine 32 mg In 1.288 Sodium Chloride 0.9% 218 ml @ 0.05 MCG/KG/MIN 1. 914 mls/hr IV .Q24H [facility] Rx#:[id number] Potassium Chloride 10 meq 400 In Water For Injection 1 100ml.bag @ 100 mls/hr IVPB Q1H [facility] Rx#: [id number] Potassium Chloride 10 meq 200 In Water For Injection 1 100ml.bag @ 100 mls/hr IVPB Q1H [facility] Rx#: [id number] Valproate Sodium 500 mg 100 In Sodium Chloride 0.9% 100 ml @ 100 mls/hr IVPB Q6HR [facility] Rx#:[id number] cefTRIAXone 2 gm In 50 Sodium Chloride 0.9% 50 ml @ 100 mls/hr IVPB Q24HR [facility] Rx#:[id number] metroNIDAZOLE-NS PMX 500 200 100 mg In Saline 1 100ml.bag @ 100 mls/hr IVPB Q8HR [facility] Rx#:[id number] Tube Feeding 80 Other 30 Output: Urine 720 765 365 Other: Voiding Method Indwelling Catheter Indwelling Catheter Indwelling Catheter ABP, PAP, CO, CI - Last Documented Arterial Blood Pressure 108/44 - Exam Patient is somnolent at this time. No obvious seizure-like activity. Examination otherwise unchanged. Continues to have right hemiparesis. - Labs CBC & Chem 7: 08/29/24 05:05 08/29/24 05:05 Labs: Abnormal Lab Results - Last 24 Hours (Table) 08/27/24 08/28/24 08/28/24 Range/Units 18:12 00:13 04:15 WBC 11.7 H (3.8-10.6) k/uL RBC 3.49 L (4.30-5.90) m/uL Hgb 10.2 L (13.0-17.5) gm/dL Hct 33.9 L (39.0-53.0) % MCHC 30.0 L (31.0-37.0) g/dL Neutrophils # 10.0 H (1.3-7.7) k/uL Chloride (98-107) mmol/L BUN (9-20) mg/dL Creatinine (0.66-1.25) mg/dL Glucose (74-99) mg/dL POC Glucose (mg/dL) 151 H 148 H (70-110) mg/dL Calcium (8.4-10.2) mg/dL Alkaline Phosphatase (38-126) U/L Total Protein (6.3-8.2) g/dL Albumin (3.5-5.0) g/dL 08/28/24 08/28/24 08/28/24 Range/Units 04:15 06:01 11:30 WBC (3.8-10.6) k/uL RBC (4.30-5.90) m/uL Hgb (13.0-17.5) gm/dL Hct (39.0-53.0) % MCHC (31.0-37.0) g/dL Neutrophils # (1.3-7.7) k/uL Chloride 114 H (98-107) mmol/L BUN 25 H (9-20) mg/dL Creatinine 0.43 L (0.66-1.25) mg/dL Glucose 152 H (74-99) mg/dL POC Glucose (mg/dL) 139 H 112 H (70-110) mg/dL Calcium 7.8 L (8.4-10.2) mg/dL Alkaline Phosphatase 152 H (38-126) U/L Total Protein 5.6 L (6.3-8.2) g/dL Albumin 2.4 L (3.5-5.0) g/dL 08/28/24 Range/Units 17:02 WBC (3.8-10.6) k/uL RBC (4.30-5.90) m/uL Hgb (13.0-17.5) gm/dL Hct (39.0-53.0) % MCHC (31.0-37.0) g/dL Neutrophils # (1.3-7.7) k/uL Chloride (98-107) mmol/L BUN (9-20) mg/dL Creatinine (0.66-1.25) mg/dL Glucose (74-99) mg/dL POC Glucose (mg/dL) 129 H (70-110) mg/dL Calcium (8.4-10.2) mg/dL Alkaline Phosphatase (38-126) U/L Total Protein (6.3-8.2) g/dL Albumin (3.5-5.0) g/dL Microbiology - Last 24 Hours (Table) 08/27/24 09:53 Blood Culture - Preliminary Blood 08/27/24 08:11 Gram Stain - Preliminary Sputum Sputum Culture - Preliminary 08/25/24 22:43 Blood Culture Gram Stain - Preliminary Blood Blood Culture - Preliminary Strep A Molecular ID 08/26/24 11:35 Nasal Screen MRSA/MSSA - Final Nasal Swab Assessment and Plan Assessment: * Altered mental status likely due to toxic metabolic encephalopathy. * Status post hypothermia, hypotension, bradycardia, improved. * Sepsis with bacteremia * Possible septic shock * Bacterial pneumonia * Acute respiratory failure * Acute UTI with strep agalactiae * Hypernatremia * Seizure disorder, currently in remission * Mentally challenged * History of right spastic hemiparesis * Wheelchair-bound * Minimal verbal state, at baseline Plan: * Treatment of various metabolic/medical conditions as per IM, critical care and other specialties on board. * Vitamin B12 1896, Dilantin level 14.7 which is therapeutic and Depakote 40.6. * Continue same dose of seizure medication including Dilantin 100 mg 3 times daily and Depakote 1000 mg every 12 hours. While in the hospital, patient will be given Depakote 500 mg IV every 6 hours, and Dilantin 100 mg IV every 8 hours. * EEG was abnormal due to background slowing of moderate to severe degree. This is suggestive of generalized cerebral dysfunction as can be seen with toxic metabolic encephalopathy, or related to diffuse structural brain abnormality. Clinical correlation is recommended. No epileptiform activity was seen. * 2D echo was technically difficult study. Normal ventricular size and systolic function with EF 55 to 60%. No obvious regional wall motion abnormalities. Mildly increased left atrial diameter. Mild MR, AR. * Patient currently on ceftriaxone 2 g every 24 hours, metronidazole, vancomycin. ID following. * Continue present management. * Discussed with patient's sister and nursing staff in detail.
--- NOTE | 2024-08-29 11:32 | P.PN ---
Subjective Progress Note Date: 08/29/24 Principal diagnosis: Mental status changes, sepsis, bradycardia. This is a 74-year-old white male with history of cognitive impairment, mentally challenged, known history of multiple medical problems including seizure disorder, patient is bedbound, has flexion contractures, patient resides at an adult foster [facility]. Presented to the ER last night with altered mental status as documented by the ER physician and as noted by the extended-care facility staff. Apparently has not been eating, and upon his initial evaluation in the ER, patient was noted to be hypothermic with a temp of 84. Patient was hypotensive, bradycardic, his cardiac rate was in the 20s. Patient was not responsive to any stimuli, but according to the ER physician he was able to protect his airways, and did not seem to be in respiratory distress. Did not require intubation or mechanical ventilation. However patient required placement on dopamine for his bradycardia, and he was also placed on norepinephrine at the same time. Transferred to the ICU on dopamine at 12 mcg/kg/min norepinephrine at 0.08 mcg/kg/min patient received IV fluids and he had external warming performed, and I saw him today his temperature is 95. Patient remains on a nonrebreather mask/15 L flow, his ABG today showed a pO2 of 52 pCO2 43 pH of 7.37. Again his temp is up to 95. Sodium was noted to be elevated and he is now on D5W at 100 cc/h. The patient himself is nonverbal, and does not follow any instructions. His labs today show WBC count is 14.1 hemoglobin 12.1, sodium was noted to be 151 BUN is 45 creatinine 0.57 his IV fluid was changed from 0.9 normal saline to D5W. Liver enzymes were noted to be a bit elevated lipase was 1661. And alkaline phosphatase was 211, drug screen was positive only for barbiturates. Otherwise negative drug screen. Phenytoin level was therapeutic 14.7 valproic acid was subtherapeutic at 40.6. Progress note dated August 27, 2024. This is a 74-year-old male who was admitted to the hospital on August 25, 2024, with mental status changes, bradycardia, and sepsis. Initially his heart rate was only 24 bpm. He is seen today in room 255. He continues on 4 L nasal can nula. He has an NG tube in place. The patient continues on D5W at 100 cc an hour, and dopamine at 8 mcg/kg/min. The patient was found to have streptococci, both in blood and urine. He continues on Rocephin and Flagyl. His overall prognosis remains poor. White count 13.1, hemoglobin 10.3, macro 34.3, platelet count 166,000. Sodium 145, potassium 3.7, chlorides 115, CO2 22, BUN 34, creatinine 0.74. Glucose 134. Albumin is 2.5. Calcium is 7.7. The patient had group be strep in his urine, and group A strep, and his blood. Chest x-ray shows a patchy infiltrate, in the left lower lobe. Progress note dated August 28, 2024. 74-year-old male who was admitted to the hospital on August 25, 2024, with mental status changes, bradycardia, and sepsis. His heart rate initially was only 24. He is seen again today in room 255. The patient continues on 2 L of oxygen by nasal cannula. NG tube was in place. He is getting dopamine at 5 mcg/kg/min. He is on D5W at 100 cc an hour, which will be changed to lactated Ringer's at 100 cc an hour. The patient is a no code. White count 11.7, hemoglobin 10.2, hematocrit 33.9, platelet count 155,000. Sodium 140, potassium 3.8, chlorides 114, CO2 24, BUN 25, creatinine 0.43 glucose 112, calcium 7.8, albumin 2.4. He was positive for group B strep, and blood was positive for group A strep. Chest x-ray shows a left basilar left perihilar opacity, potentially relating to pneumonia. Progress note dated August 29, 2024. 74-year-old male admitted to the hospital August 25, 2024, with mental status changes, bradycardia, and sepsis. The patient is again seen today in room 255. The patient is currently on dopamine at 2 mcg/kg/min, lactated Ringer's at 100 cc an hour, has an NG tube in place, and is receiving nasal O2 at 4 L. He is a DO NOT RESUSCITATE patient. He is getting vital AF via the NG tube, 20 cc an hour. He continues on Rocephin and Flagyl. White count 10.6, hemoglobin 10.1, hematocrit 32.6, platelet count 138,000. Sodium 140, potassium 3.6, chlorides 110, CO2 25, BUN 26, and creatinine 0.42. Glucose 129. Calcium 7.8. Objective - Vital Signs Vital signs: Vital Signs Temp 97.4 F L 08/29/24 08:00 Pulse 47 L 08/29/24 11:00 Resp 16 08/29/24 11:00 BP 104/47 08/29/24 04:00 Pulse Ox 97 08/29/24 11:00 FiO2 100 08/26/24 19:44 Intake & Output 08/28/24 08/29/24 08/29/24 18:59 06:59 18:59 Intake Total 9225.700 0672.790 577.931 Output Total 425 415 165 Balance 1304.960 4296.790 412.931 Weight 84.6 kg 85.7 kg Intake: IV 523 1569 452 .9NS Pressure Bag 33 39 12 0.9 KVO 90 130 40 Dextrose 5% in Water 1, 300 000 ml @ 100 mls/hr IV . Q10H [facility] Rx#:[id number] Lactated Ringers 1,000 ml 1200 400 @ 100 mls/hr IV .Q10H [facility] Rx#:[id number] Valproate Sodium 500 mg 100 100 In Sodium Chloride 0.9% 100 ml @ 100 mls/hr IVPB Q6HR [facility] Rx#:[id number] metroNIDAZOLE-NS PMX 500 100 mg In Saline 1 100ml.bag @ 100 mls/hr IVPB Q8HR [facility] Rx#:[id number] Intake, IV Titration 932.506 69.790 15.931 Amount DOPamine DRIP 800 mg In 132.506 69.790 15.931 Dextrose/Water 1 250ml. bag @ 1 MCG/KG/MIN 1.343 mls/hr IV .Q24H [facility] Rx#: [id number] Lactated Ringers 1,000 ml 700 @ 100 mls/hr IV .Q10H [facility] Rx#:[id number] metroNIDAZOLE-NS PMX 500 100 mg In Saline 1 100ml.bag @ 100 mls/hr IVPB Q8HR [facility] Rx#:[id number] Tube Feeding 120 260 80 Other 60 90 30 Output: Urine 425 415 165 Other: Voiding Method Indwelling Catheter Indwelling Catheter ABP, PAP, CO, CI - Last Documented Arterial Blood Pressure 142/51 - Exam No acute distress, very lethargic, and poorly responsive. Nasal O2 was noted, as well as an NG tube. HEENT examination is grossly unremarkable. Mucous membranes are moist. No oral lesions. Neck supple. Full range of motion. No adenopathy thyromegaly or neck vein distention. Cardiovascular examination reveals regular rhythm rate. S1-S2 normal. No S3 or S4. No discernible murmur noted. Heart sounds are distant. Lungs reveal scattered bilateral rhonchi. No wheezes. No crackles. Breath sounds are equal bilaterally. Abdomen soft bowel sounds are heard. No masses or tenderness. Extremities are intact. No cyanosis clubbing or edema. Skin is without rash or lesion. Neurologic examination is very difficult to evaluate at this time. - Labs CBC & Chem 7: 08/29/24 05:08/29/24 05:05 Labs: Abnormal Lab Results - Last 24 Hours (Table) 08/28/24 08/28/24 08/29/24 Range/Units 11:30 17:02 00:21 RBC (4.30-5.90) m/uL Hgb (13.0-17.5) gm/dL Hct (39.0-53.0) % Plt Count (150-450) k/uL Neutrophils # (1.3-7.7) k/uL Chloride (98-107) mmol/L BUN (9-20) mg/dL Creatinine (0.66-1.25) mg/dL Glucose (74-99) mg/dL POC Glucose (mg/dL) 112 H 129 H 132 H (70-110) mg/dL Calcium (8.4-10.2) mg/dL 08/29/24 08/29/24 Range/Units 05:05 05:05 RBC 3.38 L (4.30-5.90) m/uL Hgb 10.1 L (13.0-17.5) gm/dL Hct 32.6 L (39.0-53.0) % Plt Count 138 L (150-450) k/uL Neutrophils # 8.8 H (1.3-7.7) k/uL Chloride 110 H (98-107) mmol/L BUN 26 H (9-20) mg/dL Creatinine 0.42 L (0.66-1.25) mg/dL Glucose 129 H (74-99) mg/dL POC Glucose (mg/dL) (70-110) mg/dL Calcium 7.8 L (8.4-10.2) mg/dL Microbiology - Last 24 Hours (Table) 08/27/24 08:11 Gram Stain - Final Sputum Sputum Culture - Final 08/25/24 22:43 Blood Culture Gram Stain - Final Blood Blood Culture - Final Strep A Molecular ID 08/27/24 09:53 Blood Culture - Preliminary Blood 08/26/24 11:35 Nasal Screen MRSA/MSSA - Final Nasal Swab Assessment and Plan Assessment: Acute mental status changes, likely multifactorial, in part related to sepsis, hypothermia, and hypothyroidism. Streptococcal bacteremia. Streptococcal urinary tract infection. Hypothyroidism. Hypovolemic hyponatremia. History of seizure disorder. Acute metabolic encephalopathy. History of cognitive impairment. Acute hypoxemic respiratory failure secondary to aspiration pneumonia. Plan: Plan dated August 27, 2024. The patient is seen today in room 255. The patient's overall prognosis remains poor. He continues on dopamine at 8 mcg/kg/min. The patient is also on D5W at 100 cc an hour. He has an NG tube in place. Will talk to the family about a feeding tube. He is getting oxygen by nasal cannula at 4 L. He was admitted on August 25, 2024. He was found to have streptococcal bacteremia and streptococcal urinary tract infection. He remains on Rocephin and Flagyl. All labs, x-rays, and medications are reviewed. The patient's overall prognosis remains poor. We will continue to follow make recommendations. Dictation was produced using [employer] dictation software. Please excuse any grammatical, word or spelling errors. Plan dated August 28, 2024. The patient is seen today in room 255. He continues on oxygen by nasal cannula 2 L. He has an NG tube in place. He is getting D5W at 100 cc an hour which will be converted to LR at 100 cc an hour. The patient does continue on dopamine, at 5 mcg/kg/min. Yesterday he was on 8 mcg/kg/min. He remains on antibiotics in the form of Rocephin and Flagyl. All labs, x-rays, medications are reviewed. We did have the nurse asked the family about a feeding tube. For the time being they do not want a feeding tube. We will continue to follow. Prognosis is guarded. We will try some trickle feedings, down the NG tube. Prognosis is guarded. Dictation was produced using [employer] software. Please excuse any grammatical, word or spelling errors. Plan dated August 29, 2024. The patient remains in the intensive care unit, and is critically ill. The patient is currently on nasal O2, at 4 L. He has an NG tube in place. He is getting vital AF through the NG tube with 20 cc an hour. He continues on Rocephin and Flagyl. He had streptococci both in urine and blood. He is getting lactated Ringer's at 100 cc an hour, dopamine at 2 mcg/kg/min. Heart rate is still less than 60 bpm. Labs, x-rays, and all medications are reviewed. We will continue to follow. The patient's overall prognosis remains extremely guarded. Dictation was produced using [employer] software. Please excuse any grammatical, word or spelling errors. Time with Patient: Greater than 30
[2024-08-29 11:57] LABS: Glucose,Whole Blood 97 mg/dL (70-110)
--- NOTE | 2024-08-29 12:11 | P.PN ---
Subjective Progress Note Date: 08/29/24 Subjective: Patient seen and examined at bedside. No acute events overnight. Remains bradycardic, continued on dopamine. NG tube in place Pertinent positives and negatives as discussed above, a complete review of systems was performed and all other systems are negative. Vitals Signs Reviewed. General: Nontoxic, in mild acute distress distress, appears at stated age Derm: Warm, dry Head: Atraumatic, normocephalic, symmetric Eyes: EOMI, no lid lag, anicteric sclera Mouth: No lip lesion, mucus membranes moist Cardiovascular: S1S2 reg, bradycardic, no murmur Lungs: Bilateral rhonchi, no accessory muscle use, supplemental oxygen Abdominal: Soft, nontender to palpation, no guarding, no appreciable organomegaly Ext: Upper and lower extremity contractures, 2+ bilateral lower extremity edema Neuro: Nonverbal, spontaneously opening eyes Psych: Somnolent Data Reviewed Today: Pertinent Labs: WBC 10.6, hemoglobin 10.1, creatinine 0.14, blood sugars range between 97-1 32 Imaging: Chest x-ray independently interpreted from this morning, left lower lobe interstitial opacities. Assessment and Plan: Active: Septic shock Bacterial pneumonia Strep bacteremia Acute hypoxic respiratory failure Acute metabolic encephalopathy Ileus Hypothermia, resolved Leukocytosis, resolved Hypernatremia, resolved - ICU note reviewed, weaning pressors, currently on dopamine drip, patient has NG in place, do trickle feeds - concern for possible adrenal crisis as well, on solu-cortef 100 IV decreased daily - Repeat blood cultures pending, ID following, continued on IV ceftriaxone 2 g every 24 hours as well as Flagyl 500 IV every 8 hours - echo showed LVEF 55 to 60%, mild mitral and aortic regurgitation, consider MICKY Epilepsy -On Dilantin 100 mg IV every 8 hours, valproic acid 500 IV every 6 hours - per report, mental status at baseline other than lethargy -Neurology following Bradycardia -Cardiology following, continue to wean dopamine Chronic: Cognitive impairment Hypothyroidism BPH DVT ppx: Lovenox Code status: No code Anticipated discharge place: Pending clinical course Anticipated discharge time: Pending clinical course Objective - Vital Signs Vital signs: Vital Signs Temp 97.4 F L 08/29/24 08:00 Pulse 47 L 08/29/24 11:00 Resp 16 08/29/24 11:00 BP 104/47 08/29/24 04:00 Pulse Ox 97 08/29/24 11:00 FiO2 100 08/26/24 19:44 Intake & Output 08/28/24 08/29/24 08/29/24 18:59 06:59 18:59 Intake Total 7834.662 4499.790 577.931 Output Total 425 415 165 Balance 4456.276 0913.790 412.931 Weight 84.6 kg 85.7 kg Intake: IV 523 1569 452 .9NS Pressure Bag 33 39 12 0.9 KVO 90 130 40 Dextrose 5% in Water 1, 300 000 ml @ 100 mls/hr IV . Q10H [facility] Rx#:[id number] Lactated Ringers 1,000 ml 1200 400 @ 100 mls/hr IV .Q10H [facility] Rx#:[id number] Valproate Sodium 500 mg 100 100 In Sodium Chloride 0.9% 100 ml @ 100 mls/hr IVPB Q6HR [facility] Rx#:[id number] metroNIDAZOLE-NS PMX 500 100 mg In Saline 1 100ml.bag @ 100 mls/hr IVPB Q8HR [facility] Rx#:[id number] Intake, IV Titration 932.506 69.790 15.931 Amount DOPamine DRIP 800 mg In 132.506 69.790 15.931 Dextrose/Water 1 250ml. bag @ 1 MCG/KG/MIN 1.343 mls/hr IV .Q24H [facility] Rx#: [id number] Lactated Ringers 1,000 ml 700 @ 100 mls/hr IV .Q10H [facility] Rx#:[id number] metroNIDAZOLE-NS PMX 500 100 mg In Saline 1 100ml.bag @ 100 mls/hr IVPB Q8HR [facility] Rx#:[id number] Tube Feeding 120 260 80 Other 60 90 30 Output: Urine 425 415 165 Other: Voiding Method Indwelling Catheter Indwelling Catheter ABP, PAP, CO, CI - Last Documented Arterial Blood Pressure 142/51 - Labs CBC & Chem 7: 08/29/24 05:05 08/29/24 05:05 Labs: Abnormal Lab Results - Last 24 Hours (Table) 08/28/24 08/29/24 08/29/24 Range/Units 17:02 00:21 05:05 RBC 3.38 L (4.30-5.90) m/uL Hgb 10.1 L (13.0-17.5) gm/dL Hct 32.6 L (39.0-53.0) % Plt Count 138 L (150-450) k/uL Neutrophils # 8.8 H (1.3-7.7) k/uL Chloride (98-107) mmol/L BUN (9-20) mg/dL Creatinine (0.66-1.25) mg/dL Glucose (74-99) mg/dL POC Glucose (mg/dL) 129 H 132 H (70-110) mg/dL Calcium (8.4-10.2) mg/dL 08/29/24 Range/Units 05:05 RBC (4.30-5.90) m/uL Hgb (13.0-17.5) gm/dL Hct (39.0-53.0) % Plt Count (150-450) k/uL Neutrophils # (1.3-7.7) k/uL Chloride 110 H (98-107) mmol/L BUN 26 H (9-20) mg/dL Creatinine 0.42 L (0.66-1.25) mg/dL Glucose 129 H (74-99) mg/dL POC Glucose (mg/dL) (70-110) mg/dL Calcium 7.8 L (8.4-10.2) mg/dL Microbiology - Last 24 Hours (Table) 08/27/24 08:11 Gram Stain - Final Sputum Sputum Culture - Final 08/25/24 22:43 Blood Culture Gram Stain - Final Blood Blood Culture - Final Strep A Molecular ID 08/27/24 09:53 Blood Culture - Preliminary Blood 08/26/24 11:35 Nasal Screen MRSA/MSSA - Final Nasal Swab
--- NOTE | 2024-08-29 15:23 | P.PN ---
Subjective Progress Note Date: 08/29/24 History of present illness: Patient is a pleasant 74-year-old male with significant past medical history of cognitive impairment currently residing in an adult foster center, seizure, hypothyroidism who presented via EMS with altered mental status. Patient is currently unresponsive and unable to answer questions. Sister at bedside able to provide some history. She reports family history of mother having CABG in her 50s. She reports that caregiver noticed that he was coughing for the past couple days and apparently had a chest x-ray at the facility. Patient was then noted to not be eating and normally eats very well. He was then less responsive and EMS was called. EKG in the emergency room showed sinus bradycardia with a heart rate of 27 bpm, no heart block. His core temp was 85.8 F with blood pressure 44/33. Chest x-ray shows bibasilar opacities he was hypotensive and started on a dopamine and Levophed drip. Head CT with no acute findings however shows extensive encephalomalacia. Kidney ultrasound was done and shows no hydrocephalus. He has apparently mostly nonverbal at baseline. Labs reviewed: WBC 14.1, hemoglobin 12.1, sodium 151, potassium 4.0, creatinine 0.57, TSH 7.3, troponin negative x 1, BNP 305. RN reports attempting to wean dopamine however blood pressure did not tolerate and had to go up again. Sister reports no history of syncope and patient has been wheelchair-bound for the past 2 years. Progress note 08/27/2024 Patient seen and examined at bedside this a.m. Patient is currently maintained on IV phenytoin and IV dopamine drip. His heart rate while resting is in mid 50s with no overnight pauses noticed. His EKG does not show any AV nehemias blocks or any's concerns of sick sinus syndrome. Bradycardia appears to be related to hypothermia which is related to possible sepsis. TSH is 7 however T4 is normal. 08/28/2024 Patient is seen and examined at bedside this a.m. He still maintained on dopamine drip at 6 mics. His resting heart rate is around 55 bpm, blood pressure 122/43, normal sinus rhythm with no concerns of pauses or blocks. He still noticed to be hypothermic and is placed on Roland hugger's. 08/29/2024 Telemetry patient has not demonstrated any high-grade AV blocks or any sinus arrest or pauses. Heart rates ranging from high 40s to low 50s, on 3 mcg of dopamine. Blood pressure systolic 140s. PHYSICAL EXAMINATION: This is a 74-year-old male in no apparent distress at the time of my examination. HEENT: Head is atraumatic, normocephalic. Mucous membranes of the mouth are moist. Neck is supple. There is no jugular venous distention. CHEST EXAMINATION: Lungs with rhonchi. On nonrebreather face mask. No chest wall tenderness is noted on palpation or with deep breathing. HEART EXAMINATION: Heart regular rate and rhythm. S1, S2 heard. No murmurs, gallops or rub. ABDOMEN: Soft, nontender. Bowel sounds are heard. EXTREMITIES: 2+ peripheral pulses, evidence of +1 peripheral edema. NEUROLOGIC EXAMINATION: Patient is drowsy, responds to voice but not currently opening eyes. IMPRESSION AND PLAN: Bradycardia, improved Bradycardia most likely related to hypothermia which is related to possible sepsis Streptococcal septicemia Cognitive impairment History of seizures Altered mental status Hypotension Hypothermia Hypernatremia Leukocytosis Likely septic shock Cardiac testing TSH 7, normal T4, Echo EF 55%, No obvious regional wall motion abnormality, mild LVH, mild aortic regurgitation, mild mitral regurgitation, mild tricuspid regurgitation PLAN: Avoid all AV nehemias blocking agents IV antibiotics and and sepsis management Repeat blood cultures Titrate down dopamine drip once infection and septicemia improves and patient is not hypothermic anymore I had a detailed discussion about patient's goals of care with the patient's guardian. Objective - Vital Signs Vital signs: Vital Signs Temp 94.5 F L 08/29/24 13:00 Pulse 50 L 08/29/24 14:00 Resp 14 08/29/24 14:00 BP 104/47 08/29/24 04:00 Pulse Ox 100 08/29/24 14:00 FiO2 100 08/26/24 19:44 Intake & Output 08/28/24 08/29/24 08/29/24 18:59 06:59 18:59 Intake Total 5164.857 2279.790 1116.531 Output Total 425 415 325 Balance 7578.100 2644.790 791.531 Weight 84.6 kg 85.7 kg Intake: IV 523 1569 791 .9NS Pressure Bag 33 39 21 0.9 KVO 90 130 70 Dextrose 5% in Water 1, 300 000 ml @ 100 mls/hr IV . Q10H [facility] Rx#:[id number] Lactated Ringers 1,000 ml 1200 700 @ 100 mls/hr IV .Q10H [facility] Rx#:[id number] Valproate Sodium 500 mg 100 100 In Sodium Chloride 0.9% 100 ml @ 100 mls/hr IVPB Q6HR [facility] Rx#:[id number] metroNIDAZOLE-NS PMX 500 100 mg In Saline 1 100ml.bag @ 100 mls/hr IVPB Q8HR [facility] Rx#:[id number] Intake, IV Titration 932.506 69.790 125.531 Amount DOPamine DRIP 800 mg In 132.506 69.790 25.531 Dextrose/Water 1 250ml. bag @ 1 MCG/KG/MIN 1.343 mls/hr IV .Q24H [facility] Rx#: [id number] Lactated Ringers 1,000 ml 700 @ 100 mls/hr IV .Q10H [facility] Rx#:[id number] Valproate Sodium 500 mg 100 In Sodium Chloride 0.9% 100 ml @ 100 mls/hr IVPB Q6HR [facility] Rx#:[id number] metroNIDAZOLE-NS PMX 500 100 mg In Saline 1 100ml.bag @ 100 mls/hr IVPB Q8HR [facility] Rx#:[id number] Tube Feeding 120 260 140 Other 60 90 60 Output: Urine 425 415 325 Other: Voiding Method Indwelling Catheter Indwelling Catheter Indwelling Catheter ABP, PAP, CO, CI - Last Documented Arterial Blood Pressure 121/49 - Labs CBC & Chem 7: 08/29/24 05:05 08/29/24 14:15 Labs: Abnormal Lab Results - Last 24 Hours (Table) 08/28/24 08/29/24 08/29/24 Range/Units 17:02 00:21 05:05 RBC 3.38 L (4.30-5.90) m/uL Hgb 10.1 L (13.0-17.5) gm/dL Hct 32.6 L (39.0-53.0) % Plt Count 138 L (150-450) k/uL Neutrophils # 8.8 H (1.3-7.7) k/uL Chloride (98-107) mmol/L BUN (9-20) mg/dL Creatinine (0.66-1.25) mg/dL Glucose (74-99) mg/dL POC Glucose (mg/dL) 129 H 132 H (70-110) mg/dL Calcium (8.4-10.2) mg/dL 08/29/24 Range/Units 05:05 RBC (4.30-5.90) m/uL Hgb (13.0-17.5) gm/dL Hct (39.0-53.0) % Plt Count (150-450) k/uL Neutrophils # (1.3-7.7) k/uL Chloride 110 H (98-107) mmol/L BUN 26 H (9-20) mg/dL Creatinine 0.42 L (0.66-1.25) mg/dL Glucose 129 H (74-99) mg/dL POC Glucose (mg/dL) (70-110) mg/dL Calcium 7.8 L (8.4-10.2) mg/dL Microbiology - Last 24 Hours (Table) 08/27/24 08:11 Gram Stain - Final Sputum Sputum Culture - Final 08/25/24 22:43 Blood Culture Gram Stain - Final Blood Blood Culture - Final Strep A Molecular ID 08/27/24 09:53 Blood Culture - Preliminary Blood
[2024-08-29 18:30] LABS: Glucose,Whole Blood 135 mg/dL (70-110)
[2024-08-29 23:55] LABS: Glucose,Whole Blood 82 mg/dL (70-110)
[2024-08-30 05:15] LABS: Glucose,Whole Blood 139 mg/dL (70-110)
[2024-08-30 05:38] LABS: Basophils % (A) 0 %; Eosinophils % (A) 0 %; HCT 34.2 % (39.0-53.0); HGB 10.4 gm/dL (13.0-17.5); Hypochromasia Marked; Lymphocytes # (A) 1.5 k/uL (1.0-4.8); Lymphocytes % (A) 15 %; MCH 29.2 pg (25.0-35.0); MCHC 30.3 g/dL (31.0-37.0); MCV 96.5 fL (80.0-100.0); Mean Platelet Volume 11.4; Monocytes # (A) 0.4 k/uL (0-1.0); Monocytes % (A) 5 %; Neutrophils # (A) 7.5 k/uL (1.3-7.7); Neutrophils % (A) 78 %; Platelet Count 164 k/uL (150-450); RBC 3.54 m/uL (4.30-5.90); RDW 14.1 % (11.5-15.5); WBC 9.6 k/uL (3.8-10.6)
[2024-08-30 06:12] LABS: African American GFR (CKD) >90 (>60 ml/min/1.73 sqM); Anion Gap 7 mmol/L; Blood Urea Nitrogen 28 mg/dL (9-20); Calcium 8.1 mg/dL (8.4-10.2); Carbon Dioxide 24 mmol/L (22-30); Chloride 110 mmol/L (98-107); Glucose 131 mg/dL (74-99); Non-African American GFR(CKD) >90 (>60 ml/min/1.73 sqM); Sodium 141 mmol/L (137-145)
--- NOTE | 2024-08-30 11:13 | P.PN ---
Subjective Progress Note Date: 08/29/24 Patient was seen for a follow-up. Patient sister was present by the bedside. Patient appears slightly more alert and awake. He is making eye contact. Patient is currently on dopamine at 3 mcg/kg/min. No seizures have been reported. Per nursing report, patient is getting bradycardic, hypothermic, lik rodney septic. His heart rate goes down to 40s. Temperature went down to 94.4. Patient's sister who is a power of insurance defense attorney has decided patient to be hospice. Objective - Vital Signs Vital signs: Vital Signs Temp 96.8 F L 08/29/24 16:00 Pulse 53 L 08/29/24 16:00 Resp 14 08/29/24 16:00 BP 104/47 08/29/24 04:00 Pulse Ox 98 08/29/24 16:00 FiO2 100 08/26/24 19:44 Intake & Output 08/28/24 08/29/24 08/29/24 18:59 06:59 18:59 Intake Total 5535.188 4149.790 1329.531 Output Total 425 415 355 Balance 2720.973 3198.790 974.531 Weight 84.6 kg 85.7 kg Intake: IV 523 1569 904 .9NS Pressure Bag 33 39 24 0.9 KVO 90 130 80 Dextrose 5% in Water 1, 300 000 ml @ 100 mls/hr IV . Q10H [facility] Rx#:[id number] Lactated Ringers 1,000 ml 1200 800 @ 100 mls/hr IV .Q10H [facility] Rx#:[id number] Valproate Sodium 500 mg 100 100 In Sodium Chloride 0.9% 100 ml @ 100 mls/hr IVPB Q6HR [facility] Rx#:[id number] metroNIDAZOLE-NS PMX 500 100 mg In Saline 1 100ml.bag @ 100 mls/hr IVPB Q8HR [facility] Rx#:[id number] Intake, IV Titration 932.506 69.790 225.531 Amount DOPamine DRIP 800 mg In 132.506 69.790 25.531 Dextrose/Water 1 250ml. bag @ 1 MCG/KG/MIN 1.343 mls/hr IV .Q24H [facility] Rx#: [id number] Lactated Ringers 1,000 ml 700 @ 100 mls/hr IV .Q10H [facility] Rx#:[id number] Potassium Chloride 10 meq 100 In Water For Injection 1 100ml.bag @ 100 mls/hr IVPB Q1H [facility] Rx#: [id number] Valproate Sodium 500 mg 100 In Sodium Chloride 0.9% 100 ml @ 100 mls/hr IVPB Q6HR [facility] Rx#:[id number] metroNIDAZOLE-NS PMX 500 100 mg In Saline 1 100ml.bag @ 100 mls/hr IVPB Q8HR [facility] Rx#:[id number] Tube Feeding 120 260 140 Other 60 90 60 Output: Urine 425 415 355 Other: Voiding Method Indwelling Catheter Indwelling Catheter Indwelling Catheter ABP, PAP, CO, CI - Last Documented Arterial Blood Pressure 123/49 - Exam Patient is more awake today, making some eye contact. No obvious seizure-like activity. Examination otherwise unchanged. Continues to have right hemiparesis, which is chronic. - Labs CBC & Chem 7: 08/30/24 05:05 08/30/24 05:05 Labs: Abnormal Lab Results - Last 24 Hours (Table) 08/28/24 08/29/24 08/29/24 Range/Units 17:02 00:21 05:05 RBC 3.38 L (4.30-5.90) m/uL Hgb 10.1 L (13.0-17.5) gm/dL Hct 32.6 L (39.0-53.0) % Plt Count 138 L (150-450) k/uL Neutrophils # 8.8 H (1.3-7.7) k/uL Chloride (98-107) mmol/L BUN (9-20) mg/dL Creatinine (0.66-1.25) mg/dL Glucose (74-99) mg/dL POC Glucose (mg/dL) 129 H 132 H (70-110) mg/dL Calcium (8.4-10.2) mg/dL 08/29/24 Range/Units 05:05 RBC (4.30-5.90) m/uL Hgb (13.0-17.5) gm/dL Hct (39.0-53.0) % Plt Count (150-450) k/uL Neutrophils # (1.3-7.7) k/uL Chloride 110 H (98-107) mmol/L BUN 26 H (9-20) mg/dL Creatinine 0.42 L (0.66-1.25) mg/dL Glucose 129 H (74-99) mg/dL POC Glucose (mg/dL) (70-110) mg/dL Calcium 7.8 L (8.4-10.2) mg/dL Microbiology - Last 24 Hours (Table) 08/27/24 08:11 Gram Stain - Final Sputum Sputum Culture - Final 08/25/24 22:43 Blood Culture Gram Stain - Final Blood Blood Culture - Final Strep A Molecular ID 08/27/24 09:53 Blood Culture - Preliminary Blood Assessment and Plan Assessment: * Altered mental status likely due to toxic metabolic encephalopathy. * Status post hypothermia, hypotension, bradycardia, improved. * Sepsis with bacteremia * Possible septic shock * Bacterial pneumonia * Acute respiratory failure * Acute UTI with strep agalactiae * Hypernatremia * Seizure disorder, currently in remission * Mentally challenged * History of right spastic hemiparesis * Wheelchair-bound * Minimal verbal state, at baseline Plan: * Treatment of various metabolic/medical conditions as per IM, critical care and other specialties on board. * Vitamin B12 1896, Dilantin level 14.7 which is therapeutic and Depakote 40.6. * Continue same dose of seizure medication including Dilantin 100 mg 3 times daily and Depakote 1000 mg every 12 hours. While in the hospital, patient will be given Depakote 500 mg IV every 6 hours, and Dilantin 100 mg IV every 8 hours. * EEG was abnormal due to background slowing of moderate to severe degree. This is suggestive of generalized cerebral dysfunction as can be seen with toxic metabolic encephalopathy, or related to diffuse structural brain abnormality. Clinical correlation is recommended. No epileptiform activity was seen. * 2D echo was technically difficult study. Normal ventricular size and systolic function with EF 55 to 60%. No obvious regional wall motion abnormalities. Mildly increased left atrial diameter. Mild MR, AR. * Patient currently on ceftriaxone 2 g every 24 hours, metronidazole, vancomycin. ID following. * Continue present management. * Discussed with patient's sister and nursing staff in detail. Patient's sister, who is the power of insurance defense attorney has decided patient to go hospice. She will be signing papers in the morning. * Patient will be comfort care. We will sign off. Please reconsult neurology if any concerns.
[2024-08-30 11:48] LABS: Glucose,Whole Blood 130 mg/dL (70-110)
--- NOTE | 2024-08-30 12:38 | P.PN ---
Subjective Progress Note Date: 08/30/24 Principal diagnosis: Mental status changes, sepsis, bradycardia. This is a 74-year-old white male with history of cognitive impairment, mentally challenged, known history of multiple medical problems including seizure disorder, patient is bedbound, has flexion contractures, patient resides at an adult foster longterm. Presented to the ER last night with altered mental status as documented by the ER physician and as noted by the extended-care facility staff. Apparently has not been eating, and upon his initial evaluation in the ER, patient was noted to be hypothermic with a temp of 84. Patient was hypotensive, bradycardic, his cardiac rate was in the 20s. Patient was not responsive to any stimuli, but according to the ER physician he was able to protect his airways, and did not seem to be in respiratory distress. Did not require intubation or mechanical ventilation. However patient required placement on dopamine for his bradycardia, and he was also placed on norepinephrine at the same time. Transferred to the ICU on dopamine at 12 mcg/kg/min norepinephrine at 0.08 mcg/kg/min patient received IV fluids and he had external warming performed, and I saw him today his temperature is 95. Patient remains on a nonrebreather mask/15 L flow, his ABG today showed a pO2 of 52 pCO2 43 pH of 7.37. Again his temp is up to 95. Sodium was noted to be elevated and he is now on D5W at 100 cc/h. The patient himself is nonverbal, and does not follow any instructions. His labs today show WBC count is 14.1 hemoglobin 12.1, sodium was noted to be 151 BUN is 45 creatinine 0.57 his IV fluid was changed from 0.9 normal saline to D5W. Liver enzymes were noted to be a bit elevated lipase was 1661. And alkaline phosphatase was 211, drug screen was positive only for barbiturates. Otherwise negative drug screen. Phenytoin level was therapeutic 14.7 valproic acid was subtherapeutic at 40.6. Progress note dated August 27, 2024. This is a 74-year-old male who was admitted to the hospital on August 25, 2024, with mental status changes, bradycardia, and sepsis. Initially his heart rate was only 24 bpm. He is seen today in room 255. He continues on 4 L nasal can nula. He has an NG tube in place. The patient continues on D5W at 100 cc an hour, and dopamine at 8 mcg/kg/min. The patient was found to have streptococci, both in blood and urine. He continues on Rocephin and Flagyl. His overall prognosis remains poor. White count 13.1, hemoglobin 10.3, macro 34.3, platelet count 166,000. Sodium 145, potassium 3.7, chlorides 115, CO2 22, BUN 34, creatinine 0.74. Glucose 134. Albumin is 2.5. Calcium is 7.7. The patient had group be strep in his urine, and group A strep, and his blood. Chest x-ray shows a patchy infiltrate, in the left lower lobe. Progress note dated August 28, 2024. 74-year-old male who was admitted to the hospital on August 25, 2024, with mental status changes, bradycardia, and sepsis. His heart rate initially was only 24. He is seen again today in room 255. The patient continues on 2 L of oxygen by nasal cannula. NG tube was in place. He is getting dopamine at 5 mcg/kg/min. He is on D5W at 100 cc an hour, which will be changed to lactated Ringer's at 100 cc an hour. The patient is a no code. White count 11.7, hemoglobin 10.2, hematocrit 33.9, platelet count 155,000. Sodium 140, potassium 3.8, chlorides 114, CO2 24, BUN 25, creatinine 0.43 glucose 112, calcium 7.8, albumin 2.4. He was positive for group B strep, and blood was positive for group A strep. Chest x-ray shows a left basilar left perihilar opacity, potentially relating to pneumonia. Progress note dated August 29, 2024. 74-year-old male admitted to the hospital August 25, 2024, with mental status changes, bradycardia, and sepsis. The patient is again seen today in room 255. The patient is currently on dopamine at 2 mcg/kg/min, lactated Ringer's at 100 cc an hour, has an NG tube in place, and is receiving nasal O2 at 4 L. He is a DO NOT RESUSCITATE patient. He is getting vital AF via the NG tube, 20 cc an hour. He continues on Rocephin and Flagyl. White count 10.6, hemoglobin 10.1, hematocrit 32.6, platelet count 138,000. Sodium 140, potassium 3.6, chlorides 110, CO2 25, BUN 26, and creatinine 0.42. Glucose 129. Calcium 7.8. Progress note dated August 30, 2024. 74-year-old male admitted to the hospital on August 25, with mental status changes, sepsis, bradycardia. The patient is seen today in room 255. When I walked into the room, the nurse alerted me to the fact that the patient will be going home today with hospice. He is currently on 4 L of oxygen. NG tube is in place. He is getting dopamine at 3 mcg/kg/min. He is also getting vital at 20 cc an hour, and lactated Ringer's at 100 cc an hour. Labs today include a white count of 9.6, hemoglobin 10.4, hematocrit 34.2, and a platelet count of 164,000. Sodium 141, potassium 4, chlorides 110, CO2 24, BUN 28, and creatinine 0.48. Glucose is 130. Calcium is 8.1. Objective - Vital Signs Vital signs: Vital Signs Temp 97.9 F 08/30/24 12:00 Pulse 58 L 08/30/24 12:00 Resp 12 08/30/24 12:00 BP 104/47 08/30/24 04:00 Pulse Ox 100 08/30/24 12:00 FiO2 100 08/26/24 19:44 Intake & Output 08/29/24 08/30/24 08/30/24 18:59 06:59 18:59 Intake Total 2058.531 2066.665 995 Output Total 445 355 150 Balance 4393.511 3581.665 845 Intake: IV 1343 1669 765 .9NS Pressure Bag 33 39 15 0.9 KVO 110 130 50 Cefepime 2 gm In Sodium 100 Chloride 0.9% 100 ml @ 25 mls/hr IVPB Q8HR [facility] Rx# :[id number] Lactated Ringers 1,000 ml 1100 1300 500 @ 100 mls/hr IV .Q10H [facility] Rx#:[id number] Valproate Sodium 500 mg 100 In Sodium Chloride 0.9% 100 ml @ 100 mls/hr IVPB Q6HR [facility] Rx#:[id number] metroNIDAZOLE-NS PMX 500 100 100 100 mg In Saline 1 100ml.bag @ 100 mls/hr IVPB Q8HR [facility] Rx#:[id number] Intake, IV Titration 425.531 47.665 100 Amount DOPamine DRIP 800 mg In 25.531 47.665 Dextrose/Water 1 250ml. bag @ 1 MCG/KG/MIN 1.343 mls/hr IV .Q24H [facility] Rx#: [id number] Potassium Chloride 10 meq 200 In Water For Injection 1 100ml.bag @ 100 mls/hr IVPB Q1H [facility] Rx#: [id number] Valproate Sodium 500 mg 200 100 In Sodium Chloride 0.9% 100 ml @ 100 mls/hr IVPB Q6HR [facility] Rx#:[id number] Tube Feeding 200 260 100 Other 90 90 30 Output: Urine 445 355 150 Other: Voiding Method Indwelling Catheter Indwelling Catheter Indwelling Catheter ABP, PAP, CO, CI - Last Documented Arterial Blood Pressure 138/60 - Exam No acute distress, very lethargic, and poorly responsive. Nasal O2 was noted, as well as an NG tube. HEENT examination is grossly unremarkable. Mucous membranes are moist. No oral lesions. Neck supple. Full range of motion. No adenopathy thyromegaly or neck vein distention. Cardiovascular examination reveals regular rhythm rate. S1-S2 normal. No S3 or S4. No discernible murmur noted. Heart sounds are distant. Lungs reveal scattered bilateral rhonchi. No wheezes. No crackles. Breath sounds are equal bilaterally. Abdomen soft bowel sounds are heard. No masses or tenderness. Extremities are intact. No cyanosis clubbing or edema. Skin is without rash or lesion. Neurologic examination is very difficult to evaluate at this time. - Labs CBC & Chem 7: 08/30/24 05:05 08/30/24 05:05 Labs: Abnormal Lab Results - Last 24 Hours (Table) 08/29/24 08/30/24 08/30/24 Range/Units 18:29 05:05 05:05 RBC 3.54 L (4.30-5.90) m/uL Hgb 10.4 L (13.0-17.5) gm/dL Hct 34.2 L (39.0-53.0) % MCHC 30.3 L (31.0-37.0) g/dL Chloride 110 H (98-107) mmol/L BUN 28 H (9-20) mg/dL Creatinine 0.48 L (0.66-1.25) mg/dL Glucose 131 H (74-99) mg/dL POC Glucose (mg/dL) 135 H (70-110) mg/dL Calcium 8.1 L (8.4-10.2) mg/dL 08/30/24 08/30/24 Range/Units 05:14 11:46 RBC (4.30-5.90) m/uL Hgb (13.0-17.5) gm/dL Hct (39.0-53.0) % MCHC (31.0-37.0) g/dL Chloride (98-107) mmol/L BUN (9-20) mg/dL Creatinine (0.66-1.25) mg/dL Glucose (74-99) mg/dL POC Glucose (mg/dL) 139 H 130 H (70-110) mg/dL Calcium (8.4-10.2) mg/dL Microbiology - Last 24 Hours (Table) 08/27/24 09:53 Blood Culture - Preliminary Blood 08/27/24 08:11 Gram Stain - Final Sputum Sputum Culture - Final 08/25/24 22:43 Blood Culture Gram Stain - Final Blood Blood Culture - Final Strep A Molecular ID Assessment and Plan Assessment: Acute mental status changes, likely multifactorial, in part related to sepsis, hypothermia, and hypothyroidism. Streptococcal bacteremia. Streptococcal urinary tract infection. Hypothyroidism. Hypovolemic hyponatremia. History of seizure disorder. Acute metabolic encephalopathy. History of cognitive impairment. Acute hypoxemic respiratory failure secondary to aspiration pneumonia. Plan: Plan dated August 27, 2024. The patient is seen today in room 255. The patient's overall prognosis remains poor. He continues on dopamine at 8 mcg/kg/min. The patient is also on D5W at 100 cc an hour. He has an NG tube in place. Will talk to the family about a feeding tube. He is getting oxygen by nasal cannula at 4 L. He was admitted on August 25, 2024. He was found to have streptococcal bacteremia and streptococcal urinary tract infection. He remains on Rocephin and Flagyl. All labs, x-rays, and medications are reviewed. The patient's overall prognosis remains poor. We will continue to follow make recommendations. Dictation was produced using [employer] software. Please excuse any grammatical, word or spelling errors. Plan dated August 28, 2024. The patient is seen today in room 255. He continues on oxygen by nasal cannula 2 L. He has an NG tube in place. He is getting D5W at 100 cc an hour which will be converted to LR at 100 cc an hour. The patient does continue on dopamin e, at 5 mcg/kg/min. Yesterday he was on 8 mcg/kg/min. He remains on antibiotics in the form of Rocephin and Flagyl. All labs, x-rays, medications are reviewed. We did have the nurse asked the family about a feeding tube. For the time being they do not want a feeding tube. We will continue to follow. Prognosis is guarded. We will try some trickle feedings, down the NG tube. Prognosis is guarded. Dictation was produced using [employer] software. Please excuse any grammatical, word or spelling errors. Plan dated August 29, 2024. The patient remains in the intensive care unit, and is critically ill. The patient is currently on nasal O2, at 4 L. He has an NG tube in place. He is getting vital AF through the NG tube with 20 cc an hour. He continues on Rocephin and Flagyl. He had streptococci both in urine and blood. He is getting lactated Ringer's at 100 cc an hour, dopamine at 2 mcg/kg/min. Heart rate is still less than 60 bpm. Labs, x-rays, and all medications are reviewed. We will continue to follow. The patient's overall prognosis remains extremely guarded. Dictation was produced using [employer] software. Please excuse any grammatical, word or spelling errors. Plan dated August 30, 2024. The patient will be discharged home, with hospice. He is currently on oxygen at 4 L by nasal cannula. He has an NG tube in place. Dopamine is infusing at 3 mcg/kg/min. He is getting lactated Ringer's at 100 cc an hour, and vital at 20 cc an hour. Labs, x-rays, medications are reviewed. The patient's mental status is poor. I do not believe you is unable to take anything by mouth. Labs, x-rays, medications have been reviewed. We will continue to follow the patient. Dictation was produced using Dragon dictation software. Please excuse any grammatical, word or spelling errors. Time with Patient: Less than 30
--- NOTE | 2024-08-30 13:16 | P.PN ---
Subjective Progress Note Date: 08/29/24 Principal diagnosis: Reason for follow-up is bacteremia Patient is a 74-year-old male with a past medical history significant for seizure disorder cognitive impairment hypothyroidism resident of the extended-care facility has been brought to the hospital for evaluation of mental status changes patient was noted to be hypothermic bradycardic requiring admission to ICU he did have positive blood culture with group B strep probably this consultation. On today's evaluation that is 08/29/2024,the patient the patient has normalized, patient remains to be lethargic and cannot provide history he seem to be breathing comfortably and is currently requiring 4 L, oxygen normally diarrhea and the changes reported Patient white count normalized to 10.6, creatinine 0.42 blood culture repeat pending Objective - Vital Signs Vital signs: Vital Signs Temp 97.4 F L 08/29/24 08:00 Pulse 47 L 08/29/24 11:00 Resp 16 08/29/24 11:00 BP 104/47 08/29/24 04:00 Pulse Ox 97 08/29/24 11:00 FiO2 100 08/26/24 19:44 Intake & Output 08/28/24 08/29/24 08/29/24 18:59 06:59 18:59 Intake Total 1254.562 0496.790 577.931 Output Total 425 415 165 Balance 2786.456 6166.790 412.931 Weight 84.6 kg 85.7 kg Intake: IV 523 1569 452 .9NS Pressure Bag 33 39 12 0.9 KVO 90 130 40 Dextrose 5% in Water 1, 300 000 ml @ 100 mls/hr IV . Q10H [facility] Rx#:[id number] Lactated Ringers 1,000 ml 1200 400 @ 100 mls/hr IV .Q10H [facility] Rx#:[id number] Valproate Sodium 500 mg 100 100 In Sodium Chloride 0.9% 100 ml @ 100 mls/hr IVPB Q6HR [facility] Rx#:[id number] metroNIDAZOLE-NS PMX 500 100 mg In Saline 1 100ml.bag @ 100 mls/hr IVPB Q8HR [facility] Rx#:[id number] Intake, IV Titration 932.506 69.790 15.931 Amount DOPamine DRIP 800 mg In 132.506 69.790 15.931 Dextrose/Water 1 250ml. bag @ 1 MCG/KG/MIN 1.343 mls/hr IV .Q24H [facility] Rx#: [id number] Lactated Ringers 1,000 ml 700 @ 100 mls/hr IV .Q10H [facility] Rx#:[id number] metroNIDAZOLE-NS PMX 500 100 mg In Saline 1 100ml.bag @ 100 mls/hr IVPB Q8HR [facility] Rx#:[id number] Tube Feeding 120 260 80 Other 60 90 30 Output: Urine 425 415 165 Other: Voiding Method Indwelling Catheter Indwelling Catheter ABP, PAP, CO, CI - Last Documented Arterial Blood Pressure 142/51 - Exam GENERAL DESCRIPTION: An elderly male lying in bed in no distress RESPIRATORY SYSTEM: Unlabored breathing Lethargic in no distress - Labs CBC & Chem 7: 08/30/24 05:05 08/30/24 05:05 Labs: Abnormal Lab Results - Last 24 Hours (Table) 08/28/24 08/29/24 08/29/24 Range/Units 17:02 00:21 05:05 RBC 3.38 L (4.30-5.90) m/uL Hgb 10.1 L (13.0-17.5) gm/dL Hct 32.6 L (39.0-53.0) % Plt Count 138 L (150-450) k/uL Neutrophils # 8.8 H (1.3-7.7) k/uL Chloride (98-107) mmol/L BUN (9-20) mg/dL Creatinine (0.66-1.25) mg/dL Glucose (74-99) mg/dL POC Glucose (mg/dL) 129 H 132 H (70-110) mg/dL Calcium (8.4-10.2) mg/dL 08/29/24 Range/Units 05:05 RBC (4.30-5.90) m/uL Hgb (13.0-17.5) gm/dL Hct (39.0-53.0) % Plt Count (150-450) k/uL Neutrophils # (1.3-7.7) k/uL Chloride 110 H (98-107) mmol/L BUN 26 H (9-20) mg/dL Creatinine 0.42 L (0.66-1.25) mg/dL Glucose 129 H (74-99) mg/dL POC Glucose (mg/dL) (70-110) mg/dL Calcium 7.8 L (8.4-10.2) mg/dL Microbiology - Last 24 Hours (Table) 08/27/24 08:11 Gram Stain - Final Sputum Sputum Culture - Final 08/25/24 22:43 Blood Culture Gram Stain - Final Blood Blood Culture - Final Strep A Molecular ID 08/27/24 09:53 Blood Culture - Preliminary Blood 08/26/24 11:35 Nasal Screen MRSA/MSSA - Final Nasal Swab Assessment and Plan (1) UTI (urinary tract infection) Current Visit: Yes Status: Acute Code(s): N39.0 - URINARY TRACT INFECTION, SITE NOT SPECIFIED SNOMED Code(s): 81597932 (2) Pneumonia Current Visit: Yes Status: Acute Code(s): J18.9 - PNEUMONIA, UNSPECIFIED ORGANISM SNOMED Code(s): 634041804 (3) Sepsis Current Visit: Yes Status: Acute Code(s): A41.9 - SEPSIS, UNSPECIFIED ORGANISM SNOMED Code(s): 27448674 Plan: 1patient presented hospital with sepsis in this patient who did have hypothermia hypertension elevated white count meeting currently for SIRS source likely urinary placement as a component of pneumonia 2patient with streptococcal bacteremia source possible pneumonia/UTI. 3-blood culture has been repeated which are currently pending 4-patient temperature has normalized as well as white count has normalized, to continue with Rocephin 2 g daily and Flagyl and monitor clinical course closely Dictation was produced using [employer] dictation software. please excuse any grammatical, word or spelling errors. Time with Patient: Less than 30
--- NOTE | 2024-08-30 13:17 | P.PN ---
Subjective Progress Note Date: 08/30/24 Principal diagnosis: Reason for follow-up is bacteremia Patient is a 74-year-old male with a past medical history significant for seizure disorder cognitive impairment hypothyroidism resident of the extended-care facility has been brought to the hospital for evaluation of mental status changes patient was noted to be hypothermic bradycardic requiring admission to ICU he did have positive blood culture with group B strep probably this consultation. On today's evaluation that is 08/30/2024, the patient has been afebrile the patient is breathing comfortably he is hemodynamically stable currently 4 L nasal oxygen and normally diarrhea and the change reported by the nursing staff. Patient white count is 9.6, creatinine 0.48 Objective - Vital Signs Vital signs: Vital Signs Temp 98.2 F 08/30/24 10:00 Pulse 57 L 08/30/24 11:00 Resp 18 08/30/24 11:00 BP 104/47 08/30/24 04:00 Pulse Ox 96 08/30/24 11:00 FiO2 100 08/26/24 19:44 Intake & Output 08/29/24 08/30/24 08/30/24 18:59 06:59 18:59 Intake Total 2058.531 2066.665 762 Output Total 445 355 150 Balance 7284.922 7805.665 612 Intake: IV 1343 1669 652 .9NS Pressure Bag 33 39 12 0.9 KVO 110 130 40 Cefepime 2 gm In Sodium 100 Chloride 0.9% 100 ml @ 25 mls/hr IVPB Q8HR [facility] Rx# :[id number] Lactated Ringers 1,000 ml 1100 1300 400 @ 100 mls/hr IV .Q10H [facility] Rx#:[id number] Valproate Sodium 500 mg 100 In Sodium Chloride 0.9% 100 ml @ 100 mls/hr IVPB Q6HR [facility] Rx#:[id number] metroNIDAZOLE-NS PMX 500 100 100 100 mg In Saline 1 100ml.bag @ 100 mls/hr IVPB Q8HR [facility] Rx#:[id number] Intake, IV Titration 425.531 47.665 Amount DOPamine DRIP 800 mg In 25.531 47.665 Dextrose/Water 1 250ml. bag @ 1 MCG/KG/MIN 1.343 mls/hr IV .Q24H [facility] Rx#: [id number] Potassium Chloride 10 meq 200 In Water For Injection 1 100ml.bag @ 100 mls/hr IVPB Q1H [facility] Rx#: [id number] Valproate Sodium 500 mg 200 In Sodium Chloride 0.9% 100 ml @ 100 mls/hr IVPB Q6HR [facility] Rx#:[id number] Tube Feeding 200 260 80 Other 90 90 30 Output: Urine 445 355 150 Other: Voiding Method Indwelling Catheter Indwelling Catheter Indwelling Catheter ABP, PAP, CO, CI - Last Documented Arterial Blood Pressure 128/49 - Exam GENERAL DESCRIPTION: An elderly male lying in bed in no distress RESPIRATORY SYSTEM: Unlabored breathing , clear auscultation anteriorly HEART: S1 S2 regular rate and rhythm , ABDOMEN: Soft , no tenderness EXTREMITIES: No edema feet - Labs CBC & Chem 7: 08/30/24 05:05 08/30/24 05:05 Labs: Abnormal Lab Results - Last 24 Hours (Table) 08/29/24 08/30/24 08/30/24 Range/Units 18:29 05:05 05:05 RBC 3.54 L (4.30-5.90) m/uL Hgb 10.4 L (13.0-17.5) gm/dL Hct 34.2 L (39.0-53.0) % MCHC 30.3 L (31.0-37.0) g/dL Chloride 110 H (98-107) mmol/L BUN 28 H (9-20) mg/dL Creatinine 0.48 L (0.66-1.25) mg/dL Glucose 131 H (74-99) mg/dL POC Glucose (mg/dL) 135 H (70-110) mg/dL Calcium 8.1 L (8.4-10.2) mg/dL 08/30/24 Range/Units 05:14 RBC (4.30-5.90) m/uL Hgb (13.0-17.5) gm/dL Hct (39.0-53.0) % MCHC (31.0-37.0) g/dL Chloride (98-107) mmol/L BUN (9-20) mg/dL Creatinine (0.66-1.25) mg/dL Glucose (74-99) mg/dL POC Glucose (mg/dL) 139 H (70-110) mg/dL Calcium (8.4-10.2) mg/dL Microbiology - Last 24 Hours (Table) 08/27/24 09:53 Blood Culture - Preliminary Blood 08/27/24 08:11 Gram Stain - Final Sputum Sputum Culture - Final 08/25/24 22:43 Blood Culture Gram Stain - Final Blood Blood Culture - Final Strep A Molecular ID Assessment and Plan (1) UTI (urinary tract infection) Current Visit: Yes Status: Acute Code(s): N39.0 - URINARY TRACT INFECTION, SITE NOT SPECIFIED SNOMED Code(s): 11134840 (2) Pneumonia Current Visit: Yes Status: Acute Code(s): J18.9 - PNEUMONIA, UNSPECIFIED ORGANISM SNOMED Code(s): 745665782 (3) Sepsis Current Visit: Yes Status: Acute Code(s): A41.9 - SEPSIS, UNSPECIFIED ORGANISM SNOMED Code(s): 56166009 Plan: 1patient presented hospital with sepsis in this patient who did have hypothermia hypertension elevated white count meeting currently for SIRS source likely urinary and possible component of pneumonia 2patient with streptococcal bacteremia source possible pneumonia/UTI. 3-blood culture has been repeated which are currently pending 4-patient temperature has normalized as well as white count has normalized, currently on Rocephin 2 g daily and Flagyl however plan is for possible hospice in that case antibiotics can be safely discontinued Dictation was produced using [employer] dictation software. please excuse any grammatical, word or spelling errors. Time with Patient: Less than 30
[2024-08-30 13:43] VITALS: BMI 27.1
--- NOTE | 2024-08-30 14:22 | P.PN ---
Subjective Progress Note Date: 08/30/24 Subjective: Patient seen and examined at bedside. No acute events overnight. Remains bradycardic, continued on dopamine. NG tube in place Pertinent positives and negatives as discussed above, a complete review of systems was performed and all other systems are negative. Vitals Signs Reviewed. General: Nontoxic, in mild acute distress distress, appears at stated age Derm: Warm, dry Head: Atraumatic, normocephalic, symmetric Eyes: EOMI, no lid lag, anicteric sclera Mouth: No lip lesion, mucus membranes moist Cardiovascular: S1S2 reg, bradycardic, no murmur Lungs: Bilateral rhonchi, no accessory muscle use, supplemental oxygen Abdominal: Soft, nontender to palpation, no guarding, no appreciable organomegaly Ext: Upper and lower extremity contractures, 2+ bilateral lower extremity edema Neuro: Nonverbal, spontaneously opening eyes Psych: Somnolent Data Reviewed Today: Pertinent Labs: WBC 9.6, hemoglobin 10.4, creatinine 0.48, blood sugars range between 82-1 39 Imaging: No new imaging Assessment and Plan: Active: Septic shock Bacterial pneumonia Strep bacteremia Acute hypoxic respiratory failure Acute metabolic encephalopathy Ileus Hypothermia, resolved Leukocytosis, resolved Hypernatremia, resolved - ICU note reviewed, would benefit from hospice - concern for possible adrenal crisis as well, on solu-cortef 100 IV daily - Repeat blood cultures negative, ID note reviewed, continued on IV ceftriaxone 2 g every 24 hours as well as Flagyl 500 IV every 8 hours - echo showed LVEF 55 to 60%, mild mitral and aortic regurgitation Epilepsy -On Dilantin 100 mg IV every 8 hours, valproic acid 500 IV every 6 hours -Neurology following Refractory bradycardia -Cardiology following, continue to wean dopamine Chronic: Cognitive impairment Hypothyroidism BPH DVT ppx: Lovenox Code status: No code Anticipated discharge place: [facility] Anticipated discharge time: Possibly today Objective - Vital Signs Vital signs: Vital Signs Temp 97.9 F 08/30/24 12:00 Pulse 56 L 08/30/24 13:00 Resp 14 08/30/24 13:00 BP 104/47 08/30/24 04:00 Pulse Ox 100 08/30/24 13:00 FiO2 100 08/26/24 19:44 Intake & Output 08/29/24 08/30/24 08/30/24 18:59 06:59 18:59 Intake Total 2058.531 2066.665 1158 Output Total 445 355 250 Balance 3165.760 6076.665 908 Weight 85.7 kg Intake: IV 1343 1669 878 .9NS Pressure Bag 33 39 18 0.9 KVO 110 130 60 Cefepime 2 gm In Sodium 100 Chloride 0.9% 100 ml @ 25 mls/hr IVPB Q8HR [facility] Rx# :[id number] Lactated Ringers 1,000 ml 1100 1300 600 @ 100 mls/hr IV .Q10H [facility] Rx#:[id number] Valproate Sodium 500 mg 100 In Sodium Chloride 0.9% 100 ml @ 100 mls/hr IVPB Q6HR [facility] Rx#:[id number] metroNIDAZOLE-NS PMX 500 100 100 100 mg In Saline 1 100ml.bag @ 100 mls/hr IVPB Q8HR [facility] Rx#:[id number] Intake, IV Titration 425.531 47.665 100 Amount DOPamine DRIP 800 mg In 25.531 47.665 Dextrose/Water 1 250ml. bag @ 1 MCG/KG/MIN 1.343 mls/hr IV .Q24H [facility] Rx#: [id number] Potassium Chloride 10 meq 200 In Water For Injection 1 100ml.bag @ 100 mls/hr IVPB Q1H [facility] Rx#: [id number] Valproate Sodium 500 mg 200 100 In Sodium Chloride 0.9% 100 ml @ 100 mls/hr IVPB Q6HR [facility] Rx#:[id number] Tube Feeding 200 260 120 Other 90 90 60 Output: Urine 445 355 250 Other: Voiding Method Indwelling Catheter Indwelling Catheter Indwelling Catheter ABP, PAP, CO, CI - Last Documented Arterial Blood Pressure 116/48 - Labs CBC & Chem 7: 08/30/24 05:05 08/30/24 05:05 Labs: Abnormal Lab Results - Last 24 Hours (Table) 08/29/24 08/30/24 08/30/24 Range/Units 18:29 05:05 05:05 RBC 3.54 L (4.30-5.90) m/uL Hgb 10.4 L (13.0-17.5) gm/dL Hct 34.2 L (39.0-53.0) % MCHC 30.3 L (31.0-37.0) g/dL Chloride 110 H (98-107) mmol/L BUN 28 H (9-20) mg/dL Creatinine 0.48 L (0.66-1.25) mg/dL Glucose 131 H (74-99) mg/dL POC Glucose (mg/dL) 135 H (70-110) mg/dL Calcium 8.1 L (8.4-10.2) mg/dL 08/30/24 08/30/24 Range/Units 05:14 11:46 RBC (4.30-5.90) m/uL Hgb (13.0-17.5) gm/dL Hct (39.0-53.0) % MCHC (31.0-37.0) g/dL Chloride (98-107) mmol/L BUN (9-20) mg/dL Creatinine (0.66-1.25) mg/dL Glucose (74-99) mg/dL POC Glucose (mg/dL) 139 H 130 H (70-110) mg/dL Calcium (8.4-10.2) mg/dL Microbiology - Last 24 Hours (Table) 08/27/24 09:53 Blood Culture - Preliminary Blood 08/27/24 08:11 Gram Stain - Final Sputum Sputum Culture - Final 08/25/24 22:43 Blood Culture Gram Stain - Final Blood Blood Culture - Final Strep A Molecular ID
[2024-08-30] MEDS ORDERED: ACETAMINOPHEN SUPPOSITORY 650 MG SUPP RECTAL PRN (15:56)
[2024-08-30] MEDS: MORPHINE SULFATE 2 MG/ML SYRINGE IVP PRN (16:56)
[2024-08-30] MEDS: GLYCOPYRROLATE 0.2 MG/ML 2 ML VIAL IVP PRN (16:57)
[2024-08-30] MEDS: LORazepam 2 MG/ML INJ IV PRN (17:12)
[2024-08-31 01:39] LABS: Glucose,Whole Blood 60 mg/dL (70-110)
[2024-08-31] MEDS ORDERED: DEXTROSE 50% SYRINGE 50 ML IVP PRN (01:44)
[2024-08-31] MEDS: ATROPINE OPHTH SOLN 1% 5ML BTL SUBLINGUAL PRN (01:49)
[2024-08-31] MEDS: DEXTROSE 50% SYRINGE 50 ML IVP PRN (01:50)
[2024-08-31 01:52] VITALS: RESP 12
[2024-08-31 02:08] LABS: Glucose,Whole Blood 83 mg/dL (70-110)
[2024-08-31 05:58] LABS: Glucose,Whole Blood 69 mg/dL (70-110)
[2024-08-31 06:20] LABS: Glucose,Whole Blood 109 mg/dL (70-110)
[2024-08-31 08:24] VITALS: BP 95/52; PULSE 52; TEMP 97.4
--- NOTE | 2024-08-31 11:09 | P.PN ---
Subjective Progress Note Date: 08/31/24 Principal diagnosis: Mental status changes, sepsis, bradycardia. This is a 74-year-old white male with history of cognitive impairment, mentally challenged, known history of multiple medical problems including seizure disorder, patient is bedbound, has flexion contractures, [facility]. Presented to the ER last night with altered mental status as documented by the ER physician and as noted by the extended-care facility staff. Apparently has not been eating, and upon his initial evaluation in the ER, patient was noted to be hypothermic with a temp of 84. Patient was hypotensive, bradycardic, his cardiac rate was in the 20s. Patient was not responsive to any stimuli, but according to the ER physician he was able to protect his airways, and did not seem to be in respiratory distress. Did not require intubation or mechanical ventilation. However patient required placement on dopamine for his bradycardia, and he was also placed on norepinephrine at the same time. Transferred to the ICU on dopamine at 12 mcg/kg/min norepinephrine at 0.08 mcg/kg/min patient received IV fluids and he had external warming performed, and I saw him today his temperature is 95. Patient remains on a nonrebreather mask/15 L flow, his ABG today showed a pO2 of 52 pCO2 43 pH of 7.37. Again his temp is up to 95. Sodium was noted to be elevated and he is now on D5W at 100 cc/h. The patient himself is nonverbal, and does not follow any instructions. His labs today show WBC count is 14.1 hemoglobin 12.1, sodium was noted to be 151 BUN is 45 creatinine 0.57 his IV fluid was changed from 0.9 normal saline to D5W. Liver enzymes were noted to be a bit elevated lipase was 1661. And alkaline phosphatase was 211, drug screen was positive only for barbiturates. Otherwise negative drug screen. Phenytoin level was therapeutic 14.7 valproic acid was subtherapeutic at 40.6. Progress note dated August 27, 2024. This is a 74-year-old male who was admitted to the hospital on August 25, 2024, with mental status changes, bradycardia, and sepsis. Initially his heart rate was only 24 bpm. He is seen today in room 255. He continues on 4 L nasal can nula. He has an NG tube in place. The patient continues on D5W at 100 cc an hour, and dopamine at 8 mcg/kg/min. The patient was found to have streptococci, both in blood and urine. He continues on Rocephin and Flagyl. His overall prognosis remains poor. White count 13.1, hemoglobin 10.3, macro 34.3, platelet count 166,000. Sodium 145, potassium 3.7, chlorides 115, CO2 22, BUN 34, creatinine 0.74. Glucose 134. Albumin is 2.5. Calcium is 7.7. The patient had group be strep in his urine, and group A strep, and his blood. Chest x-ray shows a patchy infiltrate, in the left lower lobe. Progress note dated August 28, 2024. 74-year-old male who was admitted to the hospital on August 25, 2024, with mental status changes, bradycardia, and sepsis. His heart rate initially was only 24. He is seen again today in room 255. The patient continues on 2 L of oxygen by nasal cannula. NG tube was in place. He is getting dopamine at 5 mcg/kg/min. He is on D5W at 100 cc an hour, which will be changed to lactated Ringer's at 100 cc an hour. The patient is a no code. White count 11.7, hemoglobin 10.2, hematocrit 33.9, platelet count 155,000. Sodium 140, potassium 3.8, chlorides 114, CO2 24, BUN 25, creatinine 0.43 glucose 112, calcium 7.8, albumin 2.4. He was positive for group B strep, and blood was positive for group A strep. Chest x-ray shows a left basilar left perihilar opacity, potentially relating to pneumonia. Progress note dated August 29, 2024. 74-year-old male admitted to the hospital August 25, 2024, with mental status changes, bradycardia, and sepsis. The patient is again seen today in room 255. The patient is currently on dopamine at 2 mcg/kg/min, lactated Ringer's at 100 cc an hour, has an NG tube in place, and is receiving nasal O2 at 4 L. He is a DO NOT RESUSCITATE patient. He is getting vital AF via the NG tube, 20 cc an hour. He continues on Rocephin and Flagyl. White count 10.6, hemoglobin 10.1, hematocrit 32.6, platelet count 138,000. Sodium 140, potassium 3.6, chlorides 110, CO2 25, BUN 26, and creatinine 0.42. Glucose 129. Calcium 7.8. Progress note dated August 30, 2024. 74-year-old male admitted to the hospital on August 25, with mental status changes, sepsis, bradycardia. The patient is seen today in room 255. When I walked into the room, the nurse alerted me to the fact that the patient will be going home today with hospice. He is currently on 4 L of oxygen. NG tube is in place. He is getting dopamine at 3 mcg/kg/min. He is also getting vital at 20 cc an hour, and lactated Ringer's at 100 cc an hour. Labs today include a white count of 9.6, hemoglobin 10.4, hematocrit 34.2, and a platelet count of 164,000. Sodium 141, potassium 4, chlorides 110, CO2 24, BUN 28, and creatinine 0.48. Glucose is 130. Calcium is 8.1. Progress note dated August 31, 2024. 74-year-old male who was admitted to the hospital on August 25, with mental status changes, sepsis, bradycardia. The patient is again seen in room 255. Yesterday , the decision was made to send the patient home with hospice. Currently, the patient is on room air. The NG tube has been removed. He is not receiving any IV fluids. He is poorly responsive. No laboratory data today other than a glucose of 109. Objective - Vital Signs Vital signs: Vital Signs Temp 97.4 F L 08/31/24 08:00 Pulse 52 L 08/31/24 08:00 Resp 12 08/31/24 08:00 BP 95/52 08/31/24 08:00 Pulse Ox 93 L 08/31/24 08:00 FiO2 100 08/26/24 19:44 Intake & Output 08/30/24 08/31/24 08/31/24 18:59 06:59 18:59 Intake Total 1631.66 Output Total 405 355 Balance 1226.66 -355 Weight 85.7 kg Intake: IV 1217 .9NS Pressure Bag 27 0.9 KVO 90 Cefepime 2 gm In Sodium 100 Chloride 0.9% 100 ml @ 25 mls/hr IVPB Q8HR [facility] Rx# :[id number] Lactated Ringers 1,000 ml 900 @ 100 mls/hr IV .Q10H [facility] Rx#:[id number] metroNIDAZOLE-NS PMX 500 100 mg In Saline 1 100ml.bag @ 100 mls/hr IVPB Q8HR [facility] Rx#:[id number] Intake, IV Titration 144.66 Amount DOPamine DRIP 800 mg In 44.66 Dextrose/Water 1 250ml. bag @ 1 MCG/KG/MIN 1.343 mls/hr IV .Q24H [facility] Rx#: [id number] Valproate Sodium 500 mg 100 In Sodium Chloride 0.9% 100 ml @ 100 mls/hr IVPB Q6HR [facility] Rx#:[id number] Tube Feeding 180 Other 90 Output: Urine 405 355 Other: Voiding Method Indwelling Catheter Indwelling Catheter Indwelling Catheter ABP, PAP, CO, CI - Last Documented Arterial Blood Pressure 125/47 - Exam No acute distress, very lethargic, and poorly responsive. HEENT examination is grossly unremarkable. Mucous membranes are moist. No oral lesions. Neck supple. Full range of motion. No adenopathy thyromegaly or neck vein distention. Cardiovascular examination reveals regular rhythm rate. S1-S2 normal. No S3 or S4. No discernible murmur noted. Heart sounds are distant. Lungs reveal scattered bilateral rhonchi. No wheezes. No crackles. Breath sounds are equal bilaterally. Abdomen soft bowel sounds are heard. No masses or tenderness. Extremities are intact. No cyanosis clubbing or edema. Skin is without rash or lesion. Neurologic examination is very difficult to evaluate at this time. - Labs CBC & Chem 7: 08/30/24 05:05 08/30/24 05:05 Labs: Abnormal Lab Results - Last 24 Hours (Table) 08/30/24 08/31/24 08/31/24 Range/Units 11:46 01:37 05:57 POC Glucose (mg/dL) 130 H 60 L 69 L (70-110) mg/dL Microbiology - Last 24 Hours (Table) 08/27/24 09:53 Blood Culture - Preliminary Blood Assessment and Plan Assessment: Acute mental status changes, likely multifactorial, in part related to sepsis, hypothermia, and hypothyroidism. Streptococcal bacteremia. Streptococcal urinary tract infection. Hypothyroidism. Hypovolemic hyponatremia. History of seizure disorder. Acute metabolic encephalopathy. History of cognitive impairment. Acute hypoxemic respiratory failure secondary to aspiration pneumonia. Plan: Plan dated August 27, 2024. The patient is seen today in room 255. The patient's overall prognosis remains poor. He continues on dopamine at 8 mcg/kg/min. The patient is also on D5W at 100 cc an hour. He has an NG tube in place. Will talk to the family about a feeding tube. He is getting oxygen by nasal cannula at 4 L. He was admitted on August 25, 2024. He was found to have streptococcal bacteremia and streptococcal urinary tract infection. He remains on Rocephin and Flagyl. All labs, x-rays, and medications are reviewed. The patient's overall prognosis remains poor. We will continue to follow make recommendations. Dictation was produced using [employer] software. Please excuse any grammatical, word or spelling errors. Plan dated August 28, 2024. The patient is seen today in room 255. He continues on oxygen by nasal cannula 2 L. He has an NG tube in place. He is getting D5W at 100 cc an hour which will be converted to LR at 100 cc an hour. The patient does continue on dopamine, at 5 mcg/kg/min. Yesterday he was on 8 mcg/kg/min. He remains on antibiotics in the form of Rocephin and Flagyl. All labs, x-rays, medications are reviewed. We did have the nurse asked the family about a feeding tube. For the time being they do not want a feeding tube. We will continue to follow. Prognosis is guarded. We will try some trickle feedings, down the NG tube. Prognosis is guarded. Dictation was produced using [employer] software. Please excuse any grammatical, word or spelling errors. Plan dated August 29, 2024. The patient remains in the intensive care unit, and is critically ill. The patient is currently on nasal O2, at 4 L. He has an NG tube in place. He is getting vital AF through the NG tube with 20 cc an hour. He continues on Rocephin and Flagyl. He had streptococci both in urine and blood. He is getting lactated Ringer's at 100 cc an hour, dopamine at 2 mcg/kg/min. Heart rate is still less than 60 bpm. Labs, x-rays, and all medications are reviewed. We will continue to follow. The patient's overall prognosis remains extremely guarded. Dictation was produced using [facility] dictation software. Please excuse any grammatical, word or spelling errors. Plan dated August 30, 2024. The patient will be discharged home, with hospice. He is currently on oxygen at 4 L by nasal cannula. He has an NG tube in place. Dopamine is infusing at 3 mcg/kg/min. He is getting lactated Ringer's at 100 cc an hour, and vital at 20 cc an hour. Labs, x-rays, medications are reviewed. The patient's mental status is poor. I do not believe you is unable to take anything by mouth. Labs, x-rays, medications have been reviewed. We will continue to follow the patient. Dictation was produced using [employer] software. Please excuse any grammatical, word or spelling errors. Plan dated August 31, 2024. The decision was to make the patient hospice, with home care. This decision was made late yesterday. The patient has been downgraded. The patient is currently on no supplemental oxygen. He is not receiving any IV fluids. The NG tube has been discontinued. Tube feedings have been discontinued. All the necessary laboratory data has been discontinued, and all unnecessary medications have also been discontinued. The patient will be discharged home today with hospice. No additional recommendations are made. Prognosis is poor. The patient is a DO NOT RESUSCITATE patient. Time with Patient: Less than 30
[2024-08-31] MEDS ORDERED: DRY MOUTH SPRAY 59 SPRAY/59 ML SPRAY MUCOUS MEM PRN (12:19)
[2024-08-31] MEDS ORDERED: ONDANSETRON 4 MG/2 ML VIAL IVP PRN (12:19)
[2024-08-31] MEDS ORDERED: ARTIFICIAL TEARS-HYPROMELLOSE DROPS 15 ML BTL BOTH EYES PRN (12:19)
--- NOTE | 2024-08-31 12:26 | P.PN ---
Subjective Progress Note Date: 08/31/24 Hospital course: Patient is a 74-year-old male with a past medical history of seizures, cognitive impairment nonverbal at baseline, and hypothyroidism. Presented to the emergency department on 08/25/2024 from [facility] secondary to reports of decreased responsiveness. Patient underwent evaluation in the emergency department and was admitted to the ICU for concerns of adrenal crisis and acute encephalopathy secondary to septic shock resulting from bacterial pneumonia and later diagnosed with strep bacteremia. Patient required vasopressors and was evaluated by infectious disease managing IV antibiotics. Patient found to have an ileus and an NG tube was also inserted. On 08/29/2024 patient's family and guardian made the decision for hospice care and [facility] was consulted. [facility] Physical exam: General: Nontoxic, appears comfortable.. Derm: Skin warm and dry, normal coloration for ethnicity. Head: Atraumatic, normocephalic and symmetric. Eyes: no lid lag, and anicteric sclera Mouth: no lip lesions, mucus membranes dry Cardiovascular: Bradycardic rate with regular rhythm with normal S1S2 Lungs: Respirations even, regular, and unlabored on 2 L supplemental O2. No accessory muscle usage. Abdominal: soft, nontender to palpation, no guarding, no appreciable organomegaly Ext: Bilateral lower extremity edema. Neuro/Psych: Nonverbal, minimally responsive Assessment and Plan of Care: Septic shock Bacterial pneumonia Strep bacteremia Acute hypoxic respiratory failure Acute metabolic encephalopathy Ileus Hypothermia, resolved Leukocytosis, resolved Hypernatremia, resolved Epilepsy Refractory bradycardia Cognitive impairment Hypothyroidism BPH -Comfort measures only. -Symptomatic care and pain management. -Tylenol suppository 650 mg rectally every 4 hours as needed for fever and/or mild pain. -Artificial teardrops to bilateral eyes every 2 hours as needed for dry eyes. -Scopolamine patch. -Order placed for sublingual atropine drops and Robinul for excess secretions. -Zofran as needed for nausea and/or vomiting. -Morphine 2 mg IVP hourly as needed for severe uncontrolled breakthrough pain. -Ativan 1 mg IVP every 4 hours as needed for agitation or acute anxiety. CODE STATUS: DNR/DNI comfort measures only Anticipated discharge date/place: Pending placement, [id number]. Patient was seen independently by Nurse Pracitioner. This document was prepared using [email or web address] dictation software. Please allow for errors in milling machine set up operator, while rare they do occur. Chon Mendoza NP rendered care for this patient independently, reviewed the findings and plan as documented in the note above and agree with plan. I did not physically speak with or examine the patient on this date. Objective - Vital Signs Vital signs: Vital Signs Temp 97.4 F L 08/31/24 08:00 Pulse 52 L 08/31/24 08:00 Resp 12 08/31/24 08:00 BP 95/52 08/31/24 08:00 Pulse Ox 93 L 08/31/24 08:00 FiO2 100 08/26/24 19:44 Intake & Output 08/30/24 08/31/24 08/31/24 18:59 06:59 18:59 Intake Total 1631.66 Output Total 405 355 Balance 1226.66 -355 Weight 85.7 kg Intake: IV 1217 .9NS Pressure Bag 27 0.9 KVO 90 Cefepime 2 gm In Sodium 100 Chloride 0.9% 100 ml @ 25 mls/hr IVPB Q8HR [facility] Rx# :[id number] Lactated Ringers 1,000 ml 900 @ 100 mls/hr IV .Q10H [facility] Rx#:[id number] metroNIDAZOLE-NS PMX 500 100 mg In Saline 1 100ml.bag @ 100 mls/hr IVPB Q8HR [facility] Rx#:[id number] Intake, IV Titration 144.66 Amount DOPamine DRIP 800 mg In 44.66 Dextrose/Water 1 250ml. bag @ 1 MCG/KG/MIN 1.343 mls/hr IV .Q24H [facility] Rx#: [id number] Valproate Sodium 500 mg 100 In Sodium Chloride 0.9% 100 ml @ 100 mls/hr IVPB Q6HR [facility] Rx#:[id number] Tube Feeding 180 Other 90 Output: Urine 405 355 Other: Voiding Method Indwelling Catheter Indwelling Catheter ABP, PAP, CO, CI - Last Documented Arterial Blood Pressure 125/47 - Labs CBC & Chem 7: 08/30/24 05:05 08/30/24 05:05 Labs: Abnormal Lab Results - Last 24 Hours (Table) 03/06/25 03/07/25 03/07/25 Range/Units 11:46 01:37 05:57 POC Glucose (mg/dL) 130 H 60 L 69 L (70-110) mg/dL Microbiology - Last 24 Hours (Table) 08/27/24 09:53 Blood Culture - Preliminary Blood
[2024-08-31] MEDS: SCOPOLAMINE 1 MG/72 HR PATCH TRANSDERM SCH (13:46)
--- NOTE | 2024-08-31 14:36 | P.DS ---
Providers Date of admission: 08/25/24 22:37 Expected date of discharge: 08/31/24 Attending physician: Angelina Mcnair MD Consults: 08/25/24 22:37 Consult Physician Routine Consulting Provider: Rosy Smith Consult Reason/Comments: icu Do you want consulting provider notified?: Yes 08/26/24 00:14 Consult Physician Routine Consulting Provider: Gerald Momin Consult Reason/Comments: AMS, hx seizures Do you want consulting provider notified?: Yes, Notify in am 08/26/24 00:15 Consult Physician Routine Consulting Provider: Seven Fuentes Consult Reason/Comments: Bradycardia Do you want consulting provider notified?: Yes 08/27/24 08:18 Consult Physician Routine Consulting Provider: Juni Godoy Consult Reason/Comments: septic shock, strep bacteremia Do you want consulting provider notified?: Yes Primary care physician: Carlin Macias [facility] Course: Patient discharged to [id number] Discharge Diagnosis: Septic shock Bacterial pneumonia Strep bacteremia Acute hypoxic respiratory failure Acute metabolic encephalopathy Ileus Hypothermia, resolved Leukocytosis, resolved Hypernatremia, resolved Epilepsy Refractory bradycardia Cognitive impairment Hypothyroidism BPH Hospital course: Patient is a 74-year-old male with a past medical history of seizures, cognitive impairment nonverbal at baseline, and hypothyroidism. Presented to the emergency department on 08/25/2024 from [facility] secondary to reports of decreased responsiveness. Patient underwent evaluation in the emergency department and was admitted to the ICU for concerns of adrenal crisis and acute encephalopathy secondary to septic shock resulting from bacterial pneumonia and later diagnosed with strep bacteremia. Patient required vasopressors and was evaluated by infectious disease managing IV antibiotics. Patient found to have an ileus and an NG tube was also inserted. On 08/29/2024 patient's family and guardian made the decision for hospice care and [facility] was consulted. Patient discharged to [id number]. Physical exam: General: Nontoxic, appears comfortable.. Derm: Skin warm and dry, normal coloration for ethnicity. Head: Atraumatic, normocephalic and symmetric. Eyes: no lid lag, and anicteric sclera Mouth: no lip lesions, mucus membranes dry Cardiovascular: Bradycardic rate with regular rhythm with normal S1S2 Lungs: Respirations even, regular, and unlabored on 2 L supplemental O2. No accessory muscle usage. Abdominal: soft, nontender to palpation, no guarding, no appreciable orga nomegaly Ext: Bilateral lower extremity edema. Neuro/Psych: Nonverbal, minimally responsive A total of 31 minutes of time were spent preparing this complex discharge summary. Pt was discharged on 08/31/2024 at 2:27 PM Patient was seen independently by Nurse Practitioner. This document was prepared using [employer] dictation software. Please allow for errors in [employer] [employer] while rare they do occur. Chon Mendoza NP rendered care for this patient independently, reviewed the findings and plan as documented in the note above. I did not physically speak with or examine the patient on this date. Plan - Discharge Summary New Discharge Prescriptions: No Action Tamsulosin [Flomax] 0.4 mg PO DAILY Propranolol HCl [Propranolol HCl ER] 60 mg PO DAILY Chlorhexidine Gluconate [Peridex] 15 ml PO BID Phenytoin Sodium Extended [Dilantin] 100 mg PO TID Acetaminophen [Tylenol] 325 mg PO Q4H PRN PRN Reason: Fever And/ Or Pain Aspirin 81 mg PO DAILY Menthol-Zinc Oxide Oint [Calmoseptine Ointment] 1 applic TOPICAL DAILY PRN PRN Reason: LEG RASH Potassium Chloride ER [K-Dur 10] 10 meq PO DAILY Furosemide [Lasix] 20 mg PO DAILY guaiFENesin SYRUP 100MG/5ML [Robitussin] 200 mg PO Q4H Divalproex ER [Depakote ER] 1,000 mg PO BID Multivitamins, Thera [Multivitamin (formulary)] 1 tab PO DAILY Levothyroxine Sodium [Synthroid] 25 mcg PO DAILY Discharge Medication List Acetaminophen [Tylenol] 325 mg PO Q4H PRN 03/19/14 [History] Aspirin 81 mg PO DAILY 03/19/14 [History] Chlorhexidine Gluconate [Peridex] 15 ml PO BID 03/19/14 [History] Phenytoin Sodium Extended [Dilantin] 100 mg PO TID 03/19/14 [History] Propranolol HCl [Propranolol HCl ER] 60 mg PO DAILY 03/19/14 [History] Tamsulosin [Flomax] 0.4 mg PO DAILY 03/19/14 [History] Divalproex ER [Depakote ER] 1,000 mg PO BID 03/02/25 [History] Furosemide [Lasix] 20 mg PO DAILY 08/26/24 [History] Levothyroxine Sodium [Synthroid] 25 mcg PO DAILY 08/26/24 [History] Menthol-Zinc Oxide Oint [Calmoseptine Ointment] 1 applic TOPICAL DAILY PRN 08/26/24 [History] Multivitamins, Thera [Multivitamin (formulary)] 1 tab PO DAILY 08/26/24 [History] Potassium Chloride ER [K-Dur 10] 10 meq PO DAILY 08/26/24 [History] guaiFENesin SYRUP 100MG/5ML [Robitussin] 200 mg PO Q4H 08/26/24 [History] Activity/Diet/Wound Care/Special Instructions: [facility] - [facility]charge [facility]
[2024-08-31] MEDS: LORazepam 1 MG/0.5 ML VIAL IV PRN (17:15)
--- NOTE | 2024-08-31 21:48 | P.PN ---
Subjective Progress Note Date: 08/31/24 Principal diagnosis: Reason for follow-up is bacteremia Patient is a 74-year-old male with a past medical history significant for seizure disorder cognitive impairment hypothyroidism resident of the [facility] has been brought to the hospital for evaluation of mental status changes patient was noted to be hypothermic bradycardic requiring admission to ICU he did have positive blood culture with group B strep probably this consultation. On today's evaluation that is 08/31/2024, the patient continues to be afebrile, the patient is on room air and breathing comfortably, the Pt remains to be lethargic and up reported history now with diarrhea and the change reported by the family at the bedside. No new lab has been obtained today Objective - Vital Signs Vital signs: Vital Signs Temp 97.4 F L 08/31/24 08:00 Pulse 52 L 08/31/24 08:00 Resp 12 08/31/24 08:00 BP 95/52 08/31/24 08:00 Pulse Ox 93 L 08/31/24 08:00 FiO2 100 08/26/24 19:44 Intake & Output 08/30/24 08/31/24 08/31/24 18:59 06:59 18:59 Intake Total 1631.66 Output Total 405 355 Balance 1226.66 -355 Weight 85.7 kg Intake: IV 1217 .9NS Pressure Bag 27 0.9 KVO 90 Cefepime 2 gm In Sodium 100 Chloride 0.9% 100 ml @ 25 mls/hr IVPB Q8HR [facility] Rx# :[id number] Lactated Ringers 1,000 ml 900 @ 100 mls/hr IV .Q10H [facility] Rx#:[id number] metroNIDAZOLE-NS PMX 500 100 mg In Saline 1 100ml.bag @ 100 mls/hr IVPB Q8HR [facility] Rx#:[id number] Intake, IV Titration 144.66 Amount DOPamine DRIP 800 mg In 44.66 Dextrose/Water 1 250ml. bag @ 1 MCG/KG/MIN 1.343 mls/hr IV .Q24H [facility] Rx#: [id number] Valproate Sodium 500 mg 100 In Sodium Chloride 0.9% 100 ml @ 100 mls/hr IVPB Q6HR [facility] Rx#:[id number] Tube Feeding 180 Other 90 Output: Urine 405 355 Other: Voiding Method Indwelling Catheter Indwelling Catheter Indwelling Catheter ABP, PAP, CO, CI - Last Documented Arterial Blood Pressure 125/47 - Exam Elderly male lying in bed in no distress Unlabored breathing Lethargic - Labs CBC & Chem 7: 08/30/24 05:05 08/30/24 05:05 Labs: Abnormal Lab Results - Last 24 Hours (Table) 08/31/24 08/31/24 Range/Units 01:37 05:57 POC Glucose (mg/dL) 60 L 69 L (70-110) mg/dL Microbiology - Last 24 Hours (Table) 08/27/24 09:53 Blood Culture - Preliminary Blood Assessment and Plan (1) UTI (urinary tract infection) Current Visit: Yes Status: Acute Code(s): N39.0 - URINARY TRACT INFECTION, SITE NOT SPECIFIED SNOMED Code(s): 86092468 (2) Pneumonia Current Visit: Yes Status: Acute Code(s): J18.9 - PNEUMONIA, UNSPECIFIED ORGANISM SNOMED Code(s): 128270897 (3) Sepsis Current Visit: Yes Status: Acute Code(s): A41.9 - SEPSIS, UNSPECIFIED ORGANISM SNOMED Code(s): 50523055 Plan: 1patient presented hospital with sepsis in this patient who did have hypothermia hypertension elevated white count meeting currently for SIRS source likely urinary and possible component of pneumonia 2patient with streptococcal bacteremia source possible pneumonia/UTI. 3-blood culture has been repeated which are negative so far 4-patient temperature has normalized as well as white count has normalized, however the family has decided to go hospice no need for antibiotic on discharge Care discussed with the family bedside Dictation was produced using [employer] dictation software. please excuse any grammatical, word or spelling errors.
== END 2024-08-31 18:15 | disposition hospice, inpatient (51) | DRG 871 ==
LOC: EC 21:54 → 2SICU 22:37
PROVIDERS: ADMIT Internal Medicine; ATTEND Internal Medicine
PROC: 3E033XZ Introduction of Vasopressor into Peripheral Vein, Percutaneous Approach (ICD-10-PCS; 2024-08-25)
PROC: 4A10X4Z Monitoring of Central Nervous Electrical Activity, External Approach (ICD-10-PCS; principal; 2024-08-27)
DX: A40.1 Sepsis due to streptococcus, group B (principal); G93.41 Metabolic encephalopathy; J15.9 Unspecified bacterial pneumonia; J69.0 Pneumonitis due to inhalation of food and vomit; J96.01 Acute respiratory failure with hypoxia; R65.21 Severe sepsis with septic shock; Z51.5 Encounter for palliative care; G81.11 Spastic hemiplegia affecting right dominant side; G40.909 Epilepsy, unspecified, not intractable, without status epilepticus; E03.9 Hypothyroidism, unspecified; D64.9 Anemia, unspecified; I08.0 Rheumatic disorders of both mitral and aortic valves; K56.7 Ileus, unspecified; E87.0 Hyperosmolality and hypernatremia; N39.0 Urinary tract infection, site not specified; E87.1 Hypo-osmolality and hyponatremia; E86.1 Hypovolemia; Z11.52 Encounter for screening for COVID-19; Z79.890 Hormone replacement therapy; T68.XXXA Hypothermia, initial encounter; E87.8 Other disorders of electrolyte and fluid balance, not elsewhere classified; G93.89 Other specified disorders of brain; R00.1 Bradycardia, unspecified; N40.0 Benign prostatic hyperplasia without lower urinary tract symptoms; W19.XXXA Unspecified fall, initial encounter; Z66 Do not resuscitate; Z79.82 Long term (current) use of aspirin; Z79.899 Other long term (current) drug therapy; Z99.3 Dependence on wheelchair
CPT/HCPCS: 36415; 36556; 70450; 71045; 76770; 80048; 80053; 80143; 80164; 80179; 80185; 80306; 81001; 82140; 82607; 82728; 82747; 82803; 82805; 83540; 83550; 83605; 83690; 83735; 83880; 84100; 84132; 84145; 84425; 84439; 84443; 84484; 85025; 85610; 85730; 87040; 87070; 87077; 87086; 87186; 87205; 87636; 93005; 93306; 95816; 96361; 96365; 96367; 96368; 96374; 96375; 96376; 99291